=== PATIENT | female | born 1975 | race Caucasian/White ===

== ENCOUNTER 2021-07-15 09:27 | Inpatient (IN) ==
[2021-07-15] MEDS ORDERED: SODIUM CHLORIDE 0.9% 1000ML 1,000 ML IV ONE (09:52)
[2021-07-15] MEDS ORDERED: KETOROLAC TROMETHAMINE 15 MG/ML VIAL IV ONE (09:52)
[2021-07-15] MEDS ORDERED: dexAMETHasone**PF** 10 MG/ML VIAL IV ONE (09:52)
--- NOTE | 2021-07-15 09:54 | Emergency Department Note ---
Impression & Plan Leukopenia, Hypoxic, Pneumonia due to 2019-nCoV ED Provider Note NAME: JUAN JOSE SIMPSON AGE: 46 SEX: F : 1975 ARRIVES VIA: Walk-In INFORMANT: Patient ED PROVIDER(S): Faustino Mathis DO CHIEF COMPLAINT: Cough and shortness of breath HPI: Patient is a 46-year-old female who presents to the ER for symptoms which started this past Saturday. Patient has a cough and congestion. She also admits to some nausea and diffuse abdominal cramping. She went to her PCPs office and pulse ox was 80% and she was referred in. She does admit to some intermittent chest pain with significant deep breathing. Admits to dysuria but no urgency or frequency. She does have some left flank pain. Fevers have been as high as 101-102. No other exacerbating or remitting factors. She does work as a nurse for [employer]. ROS: See above HPI for pertinent positives & negatives. A total of 10 systems reviewed and were otherwise negative. PAST MEDICAL HISTORY:See Below PAST SURGICAL HISTORY:See Below FAMILY HISTORY:See Below SOCIAL HISTORY:See Below HOME MEDICATIONS:See Below ALLERGIES:See Below VITALS:See Below PHYSICAL EXAMINATION: GENERAL: Sitting up in bed, alert, disheveled on nasal cannula EYE EXAM: normal conjunctiva. PERRL and EOM's grossly intact. OROPHARYNX: no exudate, no erythema, lips, buccal mucosa, and tongue normal and mucous membranes are moist NECK: supple, no nuchal rigidity, no adenopathy, non-tender LUNGS: Clear to auscultation. Normal chest wall mechanics HEART: no murmurs, S1 normal and S2 normal ABDOMEN: abdomen soft, non-tender, normo-active bowel sounds, no masses, no rebound or guarding. UPPER EXTREMITIES: upper extremities are grossly normal. LOWER EXTREMITIES: No pitting edema. NEURO EXAM: Normal sensorium, cranial nerves II-XII grossly intact, normal speech, no gross weakness of arms, no gross weakness of legs. MEDICAL DECISION MAKING: Patient is a 46-year-old female who presents the ER for shortness of breath. She was found to be hypoxic and has some abdominal pain and nausea. Pain is a 7 out of 10. IV was established blood work was obtained. Labs show mild leukopenia 3000. No significant anemia. BMP with mild hypokalemia 3.4. LFTs bilirubin troponin and lipase was unremarkable. UA was contaminated. Patient is Covid positive. Chest x-ray shows bilateral infiltrates. Patient is hypoxic at 83% on room air. Patient was placed on nasal cannula and remained on this throughout stay in the ER. Patient was given IV fluids and Decadron. Discussed with Pt concerning signs and symptoms to watch out for. Pt was instructed to follow up with their PCP and discussed with the patient their option to return to the ED at anytime for persistent or worsening symptoms. The appropriate a nticipatory guidance and out-patient management, including indications for return to the emergency department, were explained at length to the patient and understood. Triage Nursing notes reviewed. Limited review of prior medical records performed Vital Signs: reviewed and remarkable for tachy Differential diagnosis: Differential diagnoses includes but is not limited to pneumonia, bronchitis, COPD/Asthma exacerbation, pneumothorax, pulmonary embolism, congestive heart failure, acute coronary syndrome ER treatment provided: See below Diagnostics interpreted by me: ECG: Sinus rhythm rate 99 Normal axis No PVCs QTC 477 Cardiac Monitoring: An order was placed for continuous cardiac monitoring. The monitor shows a rate of 95 with sinus rhythm. Laboratory studies: As stated above and show below. Imaging studies: Portable AP upright 1 view of the chest shows multifocal pneumonia Consultation(s): Discussed with hospitalist for further evaluation Chelsey Parker Procedures: none Critical Care: I have personally spent 35 minutes of critical care time in the direct management of this patient. This includes bedside care, interpretation of diagnostic studies, and testing, discussion with consultants, patient, and family members, and other required patient management activities. This 35 minutes is in excess of all separately billable procedures. Past Med/Surg History Medical History (Updated 07/15/21 @ 16:42 by Faustino Mathis DO) DMII (diabetes mellitus, type 2) Lupus Surgical History (Updated 07/15/21 @ 12:51 by Lily Lopez DO) H/O section History of incisional hernia repair History of tonsillectomy and adenoidectomy S/P appy Family History (Updated 07/15/21 @ 12:50 by Lily Lopez DO) Father Prostate cancer Diabetes Hypertension Mother Stroke Diabetes Hypertension CHF (congestive heart failure) Social History (Updated 07/15/21 @ 12:52 by Lily Lopez DO) Smoking Status: Former smoker Do You Dip or Chew Tobacco: No; Hx Alcohol Use: No Hx Substance Use: No Preferred Language: German Communication Ability: Effective Reel Winder Required: No Beliefs That Will Affect Care: None Current Living Situation: Spouse and Family current occupational status: employed current occupation: nurse Other Information That Helps Us Care for You: No Feels Safe at Home: Yes Safety Concerns: Feels Safe At This Time Assistive Devices: Contacts Allergies Allergies Allergy/AdvReac Type Severity Reaction Status Date / Time tree nut Allergy Severe anaphylaxis Verified 07/15/21 12:49 Home Meds Home Medications Medication Instructions Recorded Confirmed Ibuprofen (Advil) 800 mg PO TID PRN #0 tab 02/16/15 canagliflozin 300 mg tablet 300 mg PO DAILY 07/15/21 07/15/21 (Invokana) celecoxib 200 mg capsule 200 mg PO BID 07/15/21 07/15/21 fluoxetine 20 mg capsule 20 mg PO DAILY 07/15/21 07/15/21 folic acid 1 mg tablet 1 mg PO DAILY 07/15/21 07/15/21 gabapentin 300 mg capsule 300 mg PO HS 07/15/21 07/15/21 hydroxychloroquine 200 mg tablet 200 mg PO Q2D 07/15/21 07/15/21 hydroxychloroquine 200 mg tablet 100 mg PO Q2D 07/15/21 07/15/21 (Plaquenil) linagliptin 5 mg tablet (Tradjenta) 5 mg PO DAILY 07/15/21 07/15/21 methotrexate sodium 25 mg/mL 15 mg PO TH@0907/15/21 07/15/21 injection solution semaglutide (Ozempic) 0.5 mg SUBCUT TU@0907/15/21 07/15/21 trazodone 100 mg tablet 100 mg PO HS 07/15/21 07/15/21 Results & Data (ED) Vital Signs Vital Signs - 24 hr 07/15/21 09:35 07/15/21 09:45 07/15/21 09:46 Temperature 36.6 C Temperature Source Temporal Artery Scan Pulse Rate 105 H Pulse Rate [Finger] Respiratory Rate 18 Respiratory Effort / Characteristics Non-Labored Respiratory Depth Normal Blood Pressure 137/83 Blood Pressure [Left Arm] Blood Pressure Mean 101 Blood Pressure Mean [Left Arm] Pulse Oximetry 88 L 83 L 91 Oxygen Delivery Method Room Air Room Air Nasal Cannula Oxygen Flow Rate 2 Sepsis Recent Fever Within 48 Hours Yes Sepsis New/Unexplained Change in Mental Status No Sepsis Action Taken by Nursing No Action Required 07/15/21 10:22 07/15/21 11:48 Temperature Temperature Source Pulse Rate Pulse Rate [Finger] 100 H Respiratory Rate 18 Respiratory Effort / Characteristics Respiratory Depth Blood Pressure Blood Pressure [Left Arm] 126/63 Blood Pressure Mean Blood Pressure Mean [Left Arm] 84 Pulse Oximetry 94 94 Oxygen Delivery Method Nasal Cannula Nasal Cannula Oxygen Flow Rate 2 2 Sepsis Recent Fever Within 48 Hours Sepsis New/Unexplained Change in Mental Status Sepsis Action Taken by Nursing Laboratory Data Result diagrams: 07/15/21 10:26 07/15/21 10:26 Lab Results 07/15/21 07/15/21 07/15/21 Range/Units 10:26 10:26 10:26 WBC 3.39 L (4.8-10.8) K/uL RBC 4.75 (4.2-5.4) M/uL Hgb 13.6 (12.0-16.0) g/dL Hct 40.5 (37-47) % MCV 85.3 (80-100) fL MCH 28.6 (25-34) pg MCHC 33.6 (32-36) g/dL RDW Std Deviation 45.5 (36.4-46.3) fL RDW Coeff of [place] 14.7 H (11.5-14.5) % Plt Count 181 (130-400) K/uL MPV 9.2 (7.4-10.4) fL Immature Gran % (Auto) 0.3 % Neut % (Auto) 83.8 % Lymph % (Auto) 12.4 % [place] % (Auto) 3.2 % Eos % (Auto) 0.0 % Baso % (Auto) 0.3 % Neut # (Auto) 2.84 (1.4-6.5) K/uL Lymph # (Auto) 0.42 L (1.2-3.4) K/uL [place] # (Auto) 0.11 (0.11-0.59) K/uL Eos # (Auto) 0.00 (0-0.5) K/uL Baso # (Auto) 0.01 (0-0.2) K/uL Immature Gran # (Auto) 0.01 (0.00-0.02) K/uL Sodium 138 (136-145) mmol/L Potassium 3.4 L (3.5-5.1) mmol/L Chloride 104 (98-107) mmol/L Carbon Dioxide 25 (21-32) mmol/L Anion Gap 9.0 (3-11) BUN 14 (7-18) mg/dl Creatinine 0.50 L (0.6-1.2) mg/dl Est Cr Clr Drug Dosing 167.4 ml/min Est GFR ( Amer) 134.5 ml/min Est GFR (Non-Af Amer) 116.1 ml/min BUN/Creatinine Ratio 28.9 H (10-20) Glucose 116 H (70-99) mg/dl Calcium 8.8 (8.5-10.1) mg/dl Total Bilirubin 0.3 (0.2-1) mg/dl AST 26 (15-37) U/L ALT 41 (12-78) U/L Alkaline Phosphatase 63 (45-117) U/L Troponin I < 0.015 (0-0.045) ng/ml C-Reactive Protein (0-0.29) mg/dl Total Protein 7.5 (6.4-8.2) gm/dl Albumin 3.3 L (3.4-5.0) gm/dl Globulin 4.2 H (2.5-4.0) gm/dl Albumin/Globulin Ratio 0.8 L (0.9-2) Lipase 106 (73-393) U/L Urine Color Yellow Urine Appearance Cloudy A (Clear) Urine pH 5.5 (4.5-7.5) Ur Specific [place] > 1.045 H (1.000-1.030) Urine Protein 1+ H (Negative) Urine Glucose (UA) 3+ H (Negative) Urine Ketones 4+ H (Negative) Urine Blood Trace H (Negative) Urine Nitrite Negative (Negative) Urine Bilirubin Negative (Negative) Urine Urobilinogen Negative (Negative) Ur Leukocyte Esterase Negative (Negative) Urine WBC (Auto) >30 H (0-5) /hpf Urine RBC (Auto) 0-4 (0-4) /hpf U Hyaline Cast (Auto) 10-30 H (0-5) /lpf U Epithel Cells (Auto) >30 H (0-5) /lpf Urine Bacteria (Auto) 1+ H (Negative) POC Ur Test (NEG) COVID-19 Eval Order SARS-CoV-2 (PCR) (Negative) 07/15/21 07/15/21 07/15/21 Range/Units 10:26 10:26 10:26 WBC (4.8-10.8) K/uL RBC (4.2-5.4) M/uL Hgb (12.0-16.0) g/dL Hct (37-47) % MCV (80-100) fL MCH (25-34) pg MCHC (32-36) g/dL RDW Std Deviation (36.4-46.3) fL RDW Coeff of [place] (11.5-14.5) % Plt Count (130-400) K/uL MPV (7.4-10.4) fL Immature Gran % (Auto) % Neut % (Auto) % Lymph % (Auto) % [place] % (Auto) % Eos % (Auto) % Baso % (Auto) % Neut # (Auto) (1.4-6.5) K/uL Lymph # (Auto) (1.2-3.4) K/uL [place] # (Auto) (0.11-0.59) K/uL Eos # (Auto) (0-0.5) K/uL Baso # (Auto) (0-0.2) K/uL Immature Gran # (Auto) (0.00-0.02) K/uL Sodium (136-145) mmol/L Potassium (3.5-5.1) mmol/L Chloride (98-107) mmol/L Carbon Dioxide (21-32) mmol/L Anion Gap (3-11) BUN (7-18) mg/dl Creatinine (0.6-1.2) mg/dl Est Cr Clr Drug Dosing ml/min Est GFR ( Amer) ml/min Est GFR (Non-Af Amer) ml/min BUN/Creatinine Ratio (10-20) Glucose (70-99) mg/dl Calcium (8.5-10.1) mg/dl Total Bilirubin (0.2-1) mg/dl AST (15-37) U/L ALT (12-78) U/L Alkaline Phosphatase (45-117) U/L Troponin I (0-0.045) ng/ml C-Reactive Protein (0-0.29) mg/dl Total Protein (6.4-8.2) gm/dl Albumin (3.4-5.0) gm/dl Globulin (2.5-4.0) gm/dl Albumin/Globulin Ratio (0.9-2) Lipase (73-393) U/L Urine Color Urine Appearance (Clear) Urine pH (4.5-7.5) Ur Specific [place] (1.000-1.030) Urine Protein (Negative) Urine Glucose (UA) (Negative) Urine Ketones (Negative) Urine Blood (Negative) Urine Nitrite (Negative) Urine Bilirubin (Negative) Urine Urobilinogen (Negative) Ur Leukocyte Esterase (Negative) Urine WBC (Auto) (0-5) /hpf Urine RBC (Auto) (0-4) /hpf U Hyaline Cast (Auto) (0-5) /lpf U Epithel Cells (Auto) (0-5) /lpf Urine Bacteria (Auto) (Negative) POC Ur Test NEG (NEG) COVID-19 Eval Order Covid19 at [facility] SARS-CoV-2 (PCR) POSITIVE A* (Negative) 07/15/21 Range/Units 10:26 WBC (4.8-10.8) K/uL RBC (4.2-5.4) M/uL Hgb (12.0-16.0) g/dL Hct (37-47) % MCV (80-100) fL MCH (25-34) pg MCHC (32-36) g/dL RDW Std Deviation (36.4-46.3) fL RDW Coeff of [place] (11.5-14.5) % Plt Count (130-400) K/uL MPV (7.4-10.4) fL Immature Gran % (Auto) % Neut % (Auto) % Lymph % (Auto) % [place] % (Auto) % Eos % (Auto) % Baso % (Auto) % Neut # (Auto) (1.4-6.5) K/uL Lymph # (Auto) (1.2-3.4) K/uL [place] # (Auto) (0.11-0.59) K/uL Eos # (Auto) (0-0.5) K/uL Baso # (Auto) (0-0.2) K/uL Immature Gran # (Auto) (0.00-0.02) K/uL Sodium (136-145) mmol/L Potassium (3.5-5.1) mmol/L Chloride (98-107) mmol/L Carbon Dioxide (21-32) mmol/L Anion Gap (3-11) BUN (7-18) mg/dl Creatinine (0.6-1.2) mg/dl Est Cr Clr Drug Dosing ml/min Est GFR ( Amer) ml/min Est GFR (Non-Af Amer) ml/min BUN/Creatinine Ratio (10-20) Glucose (70-99) mg/dl Calcium (8.5-10.1) mg/dl Total Bilirubin (0.2-1) mg/dl AST (15-37) U/L ALT (12-78) U/L Alkaline Phosphatase (45-117) U/L Troponin I (0-0.045) ng/ml C-Reactive Protein 10.70 H (0-0.29) mg/dl Total Protein (6.4-8.2) gm/dl Albumin (3.4-5.0) gm/dl Globulin (2.5-4.0) gm/dl Albumin/Globulin Ratio (0.9-2) Lipase (73-393) U/L Urine Color Urine Appearance (Clear) Urine pH (4.5-7.5) Ur Specific [place] (1.000-1.030) Urine Protein (Negative) Urine Glucose (UA) (Negative) Urine Ketones (Negative) Urine Blood (Negative) Urine Nitrite (Negative) Urine Bilirubin (Negative) Urine Urobilinogen (Negative) Ur Leukocyte Esterase (Negative) Urine WBC (Auto) (0-5) /hpf Urine RBC (Auto) (0-4) /hpf U Hyaline Cast (Auto) (0-5) /lpf U Epithel Cells (Auto) (0-5) /lpf Urine Bacteria (Auto) (Negative) POC Ur Test (NEG) COVID-19 Eval Order SARS-CoV-2 (PCR) (Negative) Administered Medications Ceftriaxone Sodium 2,000 mg/ (Dextrose) 50 mls @ 100 mls/hr IV Q24H [facility]; Protocol Stop: 07/25/21 13:29 Last Infusion: 07/15/21 16:03 Dose: 0 mls/hr Documented by: [id number] Admin: 07/15/21 14:28 Dose: 100 mls/hr Documented by: [id number] Phenazopyridine HCl (Phenazopyridine Hcl 100 Mg Tab) 100 mg PO TID COREY Stop: 07/18/21 13:59 Last Admin: 07/15/21 14:28 Dose: 100 mg Documented by: [id number] Discontinued Medications Dexamethasone Sodium Phosphate (DexamethasonePf 10 Mg/Ml Vial) 6 mg IV NOW ONE Stop: 07/15/21 09:53 Last Admin: 07/15/21 10:27 Dose: 6 mg Documented by: [id number] Sodium Chloride (Nss 1000ml) 1,000 mls @ 999 mls/hr IV .Q1H1M ONE Stop: 07/15/21 10:52 Last Infusion: 07/15/21 11:15 Dose: 0 mls/hr Documented by: [id number] Admin: 07/15/21 10:27 Dose: 999 mls/hr Documented by: [id number] Remdesivir 200 mg/ Sodium (Chloride) 250 mls @ 125 mls/hr IV ONE STA; Protocol Stop: 07/15/21 15:06 Last Admin: 07/15/21 13:51 Dose: 125 mls/hr Documented by: [id number] Ioversol (Optiray 320 125ml) 120 ml IV ONCE ONE Stop: 07/15/21 11:20 Last Admin: 07/15/21 11:19 Dose: 120 ml Documented by: [id number] Ketorolac Tromethamine (Ketorolac Tromethamine 15 Mg/Ml Vial) 10 mg IV NOW ONE Stop: 07/15/21 09:53 Last Admin: 07/15/21 10:27 Dose: 10 mg Documented by: [id number] Imaging Data Radiologist's Impression: Chest X-Ray 07/15/21 09:41 SINGLE VIEW CHEST CLINICAL HISTORY: Dyspnea. FINDINGS: An AP, portable, upright chest radiograph is obtained. No prior studies are available for comparison at the time of dictation. The cardiomediastinal silhouette is unremarkable. Multifocal airspace consolidation is seen throughout both lungs. No large pleural effusion or pneumothorax is identified. The bony thorax is grossly intact. IMPRESSION: Multiple focal airspace consolidation is typical for pneumonia. Clinical correlation will be required and radiographic follow-up to resolution is recommended. ACT 112: Negative or not required by law. Electronically signed by: Ankit Woodall M.D. 07/15/2021 10:32 AM Discharge Plan Visit Data Chief Complaint: Illness Stated Complaint: LOW O2/SOB/FEVER/CHILLS/SWEATS ED Provider: Faustino Mathis Discharge Problem: Leukopenia, Hypoxic, Pneumonia due to 2019-nCoV Patient Disposition: Admitted As Inpatient Discharge Instructions Interventions: ED Discharge Assessment Last Done: 07/15/21 14:46 Discharge Problem: Leukopenia Qualifiers: Leukopenia type: unspecified Qualified Code(s): D72.819 - Decreased white blood cell count, unspecified
--- NOTE | 2021-07-15 10:33 | XRay Report ---
SINGLE VIEW CHEST CLINICAL HISTORY: Dyspnea. FINDINGS: An AP, portable, upright chest radiograph is obtained. No prior studies are available for c omparison at the time of dictation. The cardiomediastinal silhouette is unremarkable. Multifocal air space consolidation is seen throughout both lungs. No large pleural effusion or pneumothorax is ident ified. The bony thorax is grossly intact. IMPRESSION: Multiple focal airspace consolidation is typical for pneumonia. Clinical correlation will be required and radiographic follow-up to resolution is recommended. ACT 112: Negative or not required by law. Electronically signed by: Ankit Woodall M.D. 07/15/2021 10:32 AM
[2021-07-15 10:46] LABS: Basophils # (auto) 0.01 K/uL (0-0.2); Basophils % (auto) 0.3 %; Hematocrit (blood only) 40.5 % (37-47); Hemoglobin 13.6 g/dL (12.0-16.0); Immature Granulocytes # (auto) 0.01 K/uL (0.00-0.02); Immature Granulocytes % (auto) 0.3 %; Lymphocytes # (auto) 0.42 K/uL (1.2-3.4); Lymphocytes % (auto) 12.4 %; Mean Corpuscular Hemoglobin 28.6 pg (25-34); Mean Corpuscular Hgb Conc 33.6 g/dL (32-36); Mean Corpuscular Volume 85.3 fL (80-100); Mean Platelet Volume 9.2 fL (7.4-10.4); Monocytes # (auto) 0.11 K/uL (0.11-0.59); Monocytes % (auto) 3.2 %; Neutrophils # (auto) 2.84 K/uL (1.4-6.5); Neutrophils % (auto) 83.8 %; Platelet Count 181 K/uL (130-400); RDW Coefficient of Variation 14.7 % (11.5-14.5); RDW Standard Deviation 45.5 fL (36.4-46.3); Red Blood Count 4.75 M/uL (4.2-5.4); White Blood Count 3.39 K/uL (4.8-10.8)
[2021-07-15 10:53] LABS: Appearance Urine Cloudy (Clear); Bacteria Urine Automated 1+ (Negative); Bilirubin Urine Negative (Negative); Blood Urine Trace (Negative); Color Urine Yellow; Epithelial Cell Urine Auto >30 /lpf (0-5); Glucose Urine UA 3+ (Negative); Ketones Urine 4+ (Negative); Leukocyte Esterase Urine Negative (Negative); Nitrite Urine Negative (Negative); Protein Urine 1+ (Negative); RBC Urine Automated 0-4 /hpf (0-4); Specific Gravity Urine > 1.045 (1.000-1.030); Urobilinogen Urine Negative (Negative); WBC Urine Automated >30 /hpf (0-5); pH Urine 5.5 (4.5-7.5)
[2021-07-15 11:12] LABS: Alanine Aminotransferase 41 U/L (12-78); Albumin Level 3.3 gm/dl (3.4-5.0); Aspartate Aminotransferase 26 U/L (15-37); BUN Creatinine Ratio 28.9 (10-20); Blood Urea Nitrogen 14 mg/dl (7-18); Calcium 8.8 mg/dl (8.5-10.1); Carbon Dioxide 25 mmol/L (21-32); Chloride 104 mmol/L (98-107); Creatinine Clr Calc Pharmacy 167.4 ml/min; Est GFR (African American) 134.5 ml/min; Est GFR (Non-African American) 116.1 ml/min; Glucose 116 mg/dl (70-99); Lipase 106 U/L (73-393); Potassium 3.4 mmol/L (3.5-5.1); Sodium 138 mmol/L (136-145)
[2021-07-15] MEDS ORDERED: OPTIRAY 320 125ml IV ONE (11:19)
--- NOTE | 2021-07-15 11:55 | History & Physical Report ---
Date of Service July 15, 2021 Assessment & Plan (1) Sepsis: Plan: Possibly developing sepsis in setting of covid pneumonia and acute pyelonephritis with ?lupus flare in this immunosuppressed patient recently placed on a steroid taper (and on MTX). She is doing well despite this and reports feeling somewhat better. She had 1L IVF. Will give 1 additional liter now and will trend lactate. Although covid may be contributing to sepsis picture, also has possible bacterial infection in urine. Will obtain blood cultures and start empiric antibiotic treatment with ceftriaxone. Will go ahead and concurrently treat with antibiotics and steroids for now and monitor clinical progress, however, if her bladder infection worsens, may need to hold on the steroids. Cont treatment for covid below. (2) Immunosuppressed status: (3) Pneumonia due to COVID-19 virus: Plan: Dexamethasone given in ER, cont with daily dexamethasone. Add remdesivir with load today. Monitor renal function and LFTs. Patient was briefed on the possible infusion side effects of remdesivir and agrees with the therapy. Cont oxygen supplementation as needed. (4) Acute pyelonephritis: Plan: Ceftriaxone empirically pending urine culture report. Obtain blood cultures in septic, immunosuppressed patient. (5) Lupus: Plan: Takes MTX, recently took on two days ago and has been on a prednisone taper since Mon beginning at 15mg daily. Malar rash and joint pain is present. Hold MTX and cont steroid therapy as above. (6) DMII (diabetes mellitus, type 2): Plan: Hold home medications, repeat A1C which was slightly uncontrolled in March 2021 at 7.6. Cont with glargine and novolog with intensification while on steroid therapy. (7) Obesity: Plan: Lifestyle recommendations. (8) Insomnia: Plan: Cont trazodone per home regimen. (9) DVT prophylaxis: Plan: Lovenox Full Dispo-to med tele, to home when medically stable and off oxygen. Lily Lopez DO [facility] Hospitalist History of Present Illness Primary Care Provider: Shimon Ball MD 46 yo nonsmoker immunosuppressed patient with lupus presents with covid pneumonia. Symptoms began on Tu including fatigue, fever, diarrhea, headache, joint pain, nausea, and symptoms of UTI including dysurina, nocturia, flank pain, cough and sob. Cough was described as not productive. Diarrhea has been improved. Not on home oxygen. Thought she was having a lupus flare and started a prednisone taper per rheumatology on Saturday (started having joint pain, ORTIZ, fatigue and felt the flare was coming on). Symptoms progressed to include fever on Saturday morning. She did take her MTX dose on and noted a worsening of symptoms. She notes needing to sleep in a recliner. Diarrhea has started to improve. She has been taking Ibuprofen 800mg TID this week consistently related to pain and fevers. She denies having lost her sense of taste of smell, however, she has not eaten much secondary to low appetite. Allergies Allergy/AdvReac Type Severity Reaction Status Date / Time tree nut Allergy Severe anaphylaxis Verified 07/15/21 12:49 Home Medications Medication Instructions Recorded Confirmed Type Ibuprofen (Advil) 800 mg PO TID PRN #0 tab 02/16/15 History canagliflozin 300 mg tablet 300 mg PO DAILY 07/15/21 07/15/21 History (Invokana) celecoxib 200 mg capsule 200 mg PO BID 07/15/21 07/15/21 History fluoxetine 20 mg capsule 20 mg PO DAILY 07/15/21 07/15/21 History folic acid 1 mg tablet 1 mg PO DAILY 07/15/21 07/15/21 History gabapentin 300 mg capsule 300 mg PO HS 07/15/21 07/15/21 History hydroxychloroquine 200 mg tablet 200 mg PO Q2D 07/15/21 07/15/21 History hydroxychloroquine 200 mg tablet 100 mg PO Q2D 07/15/21 07/15/21 History (Plaquenil) linagliptin 5 mg tablet (Tradjenta) 5 mg PO DAILY 07/15/21 07/15/21 History methotrexate sodium 25 mg/mL 15 mg PO TH@0900 07/15/21 07/15/21 History injection solution semaglutide (Ozempic) 0.5 mg SUBCUT TU@89907/15/21 07/15/21 History trazodone 100 mg tablet 100 mg PO HS 07/15/21 07/15/21 History Past Med/Surg History Medical History (Updated 07/15/21 @ 13:14 by Lily Lopez DO) DMII (diabetes mellitus, type 2) Lupus Surgical History (Updated 07/15/21 @ 12:51 by Lily Lopez DO) H/O section History of incisional hernia repair History of tonsillectomy and adenoidectomy S/P appy Family History (Updated 07/15/21 @ 12:50 by Lily Lopez DO) Father Prostate cancer Diabetes Hypertension Mother Stroke Diabetes Hypertension CHF (congestive heart failure) Social History (Updated 07/15/21 @ 12:52 by Lily Lopez DO) Smoking Status: Never smoker Hx Alcohol Use: No Hx Substance Use: No current occupational status: employed current occupation: nurse Feels Safe at Home: Yes Safety Concerns: Feels Safe At This Time Review of Systems Review of Systems: At least ten systems were reviewed and negative except as indicated in HPI above. Physical Exam Physical Exam: CONSTITUTIONAL: obese, vitals as above, generally well- appearing EYES: EOMI bilaterally, PERRL, normal conjunctivae, no scleral icterus, ENT: external ear and nose normal, oropharynx clear, flushing on cheeks bilaterally and in central submandibular space and along her chest slightly NECK: trachea midline RESPIRATORY: diffuse crackles with poor airflow throughout, no wheezing or rales. Normal respiratory effort CARDIOVASCULAR: regular rate and rhythm, S1 and 2 heard without murmurs, gallops or rubs, no JVD, no peripheral edema CHEST: inspection of chest was normal aside from erythema as above. GASTROINTESTINAL: soft, diffuse tenderness with left CVA tenderness, nondistended, suprapubic tenderness. MUSCULOSKELETAL: strength 5/5 throughout, head is normocephalic and atraumatic SKIN: warm and dry, malar rash and rash on chin and chest NEUROLOGIC: No facial palsy, no dysarthria. Touch, pain and proprioception normal. CN 2-12 grossly intact, no sensory deficit, normal cognition, normal speech, no tremor PSYCHIATRIC: alert cooperative and oriented to person, place and time. Euthymic mood, makes good eye contact, language grossly intact, recent and remote memory grossly intact. Results & Data Results & Data ([facility]) Vital Signs (Past 12 Hours) Vital Signs Temp Pulse Pulse Resp BP BP Pulse Ox 07/15/21 11:48 100 H 18 126/63 94 07/15/21 10:22 94 07/15/21 09:46 91 07/15/21 09:45 83 L 07/15/21 09:35 36.6 C 105 H 18 137/83 88 L Laboratory Results Short CBC 07/15/21 Range/Units 10:26 WBC 3.39 L (4.8-10.8) K/uL Hgb 13.6 (12.0-16.0) g/dL Hct 40.5 (37-47) % Plt Count 181 (130-400) K/uL BMP 07/15/21 10:26 Sodium 138 Potassium 3.4 L Chloride 104 Carbon Dioxide 25 BUN 14 Creatinine 0.50 L Glucose 116 H Calcium 8.8 Liver Function 07/15/21 Range/Units 10:26 AST 26 (15-37) U/L ALT 41 (12-78) U/L Albumin 3.3 L (3.4-5.0) gm/dl Urine 07/15/21 Range/Units 10:26 Urine Color Yellow Urine Appearance Cloudy A (Clear) Urine pH 5.5 (4.5-7.5) Ur Specific [place] > 1.045 H (1.000-1.030) Urine Protein 1+ H (Negative) Urine Glucose (UA) 3+ H (Negative) Diagnostic Findings SINGLE VIEW CHEST CLINICAL HISTORY: Dyspnea. FINDINGS: An AP, portable, upright chest radiograph is obtained. No prior studies are available for comparison at the time of dictation. The cardiomediastinal silhouette is unremarkable. Multifocal airspace consolidation is seen throughout both lungs. No large pleural effusion or pneumothorax is identified. The bony thorax is grossly intact. IMPRESSION: Multiple focal airspace consolidation is typical for pneumonia. Clinical correlation will be required and radiographic follow-up to resolution is recommended. Code Status & VTE Plan VTE Prophylaxis Plan VTE Prophylaxis will be ordered: Yes
[2021-07-15 12:35] LABS: Albumin Globulin Ratio 0.8 (0.9-2); Alkaline Phosphatase 63 U/L (45-117); Bilirubin,Total 0.3 mg/dl (0.2-1); Globulin 4.2 gm/dl (2.5-4.0); Total Protein 7.5 gm/dl (6.4-8.2)
[2021-07-15 12:38] LABS: Troponin I < 0.015 ng/ml (0-0.045)
[2021-07-15] MEDS ORDERED: REMDESIVIR 200 MG in SODIUM CHLORIDE 0.9% 210 ML IV STA (13:07)
[2021-07-15] MEDS: cefTRIAXone SODIUM 2,000 MG in DEXTROSE 5% 50 ML IV SCH (14:28)
[2021-07-15] MEDS: PHENAZOPYRIDINE HCL 100 MG TAB PO SCH ×2 (14:28→21:20)
[2021-07-15] MEDS ORDERED: ONDANSETRON INJ 2 MG/ML 2 ML VIAL IV PRN (15:26)
[2021-07-15] MEDS ORDERED: GLUCOSE 40% GEL 15 GM TUBE PO PRN (15:26)
[2021-07-15] MEDS ORDERED: GLUCAGON FOR INJ 1 MG VIAL SQ PRN (15:26)
[2021-07-15] MEDS ORDERED: DEXTROSE 50% 50 ML SYRINGE IV PRN (15:26)
[2021-07-15] MEDS ORDERED: GLUCOSE 10 TABS/TUBE PO PRN (15:26)
[2021-07-15] MEDS ORDERED: CARBOHYDRATES FOR HYPOGLYCEMIA PO PRN (15:26)
[2021-07-15] MEDS: ZINC SULFATE 220 MG CAPSULE PO SCH (17:18)
[2021-07-15] MEDS: CHOLECALCIFEROL 1,000 UNITS 25 MCG TAB PO SCH (17:18)
[2021-07-15] MEDS: ENOXAPARIN INJ 40 MG/0.4 ML SYR SQ SCH (17:19)
[2021-07-15] MEDS ORDERED: PNEUMOCOCCAL POLYSACCHARIDES 25 MCG/0.5 ML VIAL/SYR IM ONE (18:00)
[2021-07-15] MEDS: INSULIN ASPART 100 UNITS/ML 3 ML PEN SC SCH ×2 (18:03→21:47)
[2021-07-15] MEDS: GABAPENTIN 300 MG CAP PO SCH (20:36)
[2021-07-15] MEDS: ASCORBIC ACID 500 MG TAB PO SCH (20:36)
[2021-07-15] MEDS: traZODone HCL 100 MG TAB PO SCH (20:36)
[2021-07-15] MEDS: CeleBREX 200 MG CAP PO SCH (20:37)
[2021-07-15] MEDS ORDERED: INSULIN GLARGINE SOLOSTAR 100 UNITS/ML 3 ML PEN SC SCH (21:00)
[2021-07-16] MEDS: ENOXAPARIN INJ 40 MG/0.4 ML SYR SQ SCH ×2 (05:45→17:48)
[2021-07-16 06:54] LABS: Hematocrit (blood only) 39.5 % (37-47); Mean Corpuscular Hemoglobin 28.5 pg (25-34); Mean Corpuscular Hgb Conc 32.9 g/dL (32-36); Mean Corpuscular Volume 86.6 fL (80-100); Mean Platelet Volume 9.3 fL (7.4-10.4); Platelet Count 224 K/uL (130-400); RDW Coefficient of Variation 14.9 % (11.5-14.5); RDW Standard Deviation 47.3 fL (36.4-46.3); Red Blood Count 4.56 M/uL (4.2-5.4)
[2021-07-16 07:26] LABS: BUN Creatinine Ratio 53.3 (10-20); Blood Urea Nitrogen 16 mg/dl (7-18); Calcium 8.7 mg/dl (8.5-10.1); Carbon Dioxide 24 mmol/L (21-32); Chloride 107 mmol/L (98-107); Creatinine Clr Calc Pharmacy 271.5 ml/min; Est GFR (African American) > 150.0 ml/min; Est GFR (Non-African American) 135.8 ml/min; Glucose 66 mg/dl (70-99); Phosphorus 2.8 mg/dl (2.5-4.9); Potassium 3.6 mmol/L (3.5-5.1); Sodium 139 mmol/L (136-145)
--- NOTE | 2021-07-16 07:52 | Electrocardiogram Report ---
Test Reason : Blood Pressure : / mmHG Vent. Rate : 099 BPM Atrial Rate : 099 BPM P-R Int : 152 ms QRS Dur : 080 ms QT Int : 372 ms P-R-T Axes : 022 028 023 degrees QTc Int : 477 ms Poor data quality, interpretation may be adversely affected Normal sinus rhythm Normal ECG When compared with ECG of 17-AUG-2014 10:05, No significant change was found Confirmed by Denzel Pascual ([id number]) on 07/16/2021 7:52:27 AM Referred By: REFERRED SELF Confirmed By:Denzel Pascual
[2021-07-16] MEDS: ZINC SULFATE 220 MG CAPSULE PO SCH (09:05)
[2021-07-16] MEDS: PHENAZOPYRIDINE HCL 100 MG TAB PO SCH ×3 (09:05→21:02)
[2021-07-16] MEDS: FLUoxetine HCL 20 MG CAP PO SCH (09:05)
[2021-07-16] MEDS: CHOLECALCIFEROL 1,000 UNITS 25 MCG TAB PO SCH (09:06)
[2021-07-16] MEDS: ASCORBIC ACID 500 MG TAB PO SCH ×2 (09:06→21:01)
[2021-07-16] MEDS: CeleBREX 200 MG CAP PO SCH ×2 (09:06→19:23)
[2021-07-16] MEDS: FOLIC ACID 1 MG TAB PO SCH (09:07)
[2021-07-16] MEDS: INSULIN ASPART 100 UNITS/ML 3 ML PEN SC SCH ×4 (09:15→21:24)
[2021-07-16] MEDS: REMDESIVIR 100 MG in SODIUM CHLORIDE 0.9% 230 ML IV SCH (12:05)
[2021-07-16] MEDS: SODIUM CHLORIDE 0.9% 10ML FLUSH IV SCH (13:05)
[2021-07-16] MEDS: cefTRIAXone SODIUM 2,000 MG in DEXTROSE 5% 50 ML IV SCH (14:59)
--- NOTE | 2021-07-16 15:41 | Hospitalist Progress Note ---
Date of Service July 16, 2021 Assessment & Plan (1) Acute respiratory failure due to COVID-19: Plan: Worsening hypoxia--added hi flow support at this time and gave Lasix. Cont to prone as often as able, which she is doing. Continuous pulse ox monitoring. (2) Sepsis: Plan: Improved-not septic at this time after initiating treatment. Cont treatment for covid pneumonia and clinical pyelonephritis in this immunosuppressed patient. (3) Immunosuppressed status: (4) Pneumonia due to COVID-19 virus: Plan: Cont with daily dexamethasone and remdesivir. Monitor renal function and LFTs. Cont oxygen supplementation as needed. (5) Acute pyelonephritis: Plan: Ceftriaxone started empirically given septic appearance on arrival, leukopenia, flank pain an dysuria, fevers. Currently urine and blood cultures are negative. She is somewhat improved clinically, reporting a resolution of flank pain and dysuria. However, she still has leukopenia and appears ill. Cont IV abx for now and plan for a short course of antibiotics to treat a presumed pyelonephritis. (6) Lupus: Plan: Takes MTX, recently took on two days ago and has been on a prednisone taper since Mon beginning at 15mg daily. Malar rash and joint pain is present. Hold MTX and cont steroid therapy as above. (7) DMII (diabetes mellitus, type 2): Plan: Hold home medications, repeat A1C which was slightly uncontrolled in March 2021 at 7.6. Cont with glargine and novolog with intensification while on steroid therapy. Some hypoglycemia noted on current regimen which was loosened, glargine reduced. Patient is eating. (8) Obesity: Plan: Lifestyle recommendations. (9) Insomnia: Plan: Cont trazodone per home regimen. (10) DVT prophylaxis: Plan: Lovenox Full Dispo-now on hi flow oxygen. Lily Lopez DO [facility] Hospitalist Admission and Anticipated Discharge Date Admission Date: July 15, 2021 Subjective 46 yo F admitted with covid pneumonia. She is a lupus patient on plaquenil and methotrexate therapy who is not vaccinated. Today she was increasingly hypoxic Hypoxia was improved by proning However, on my exam her oxygen saturation was dropping as low as 83% with conversation. She was placed on hi flow She reports some increased coughing that is not productive and has no other clear symptoms Feels overall fatigued and worn out by the illness tolerating PO Dysuria and flank pain have resolved overnight Review of Systems Review of Systems: All systems were reviewed and negative except as indicated in HPI above. Physical Exam Physical Exam: CONSTITUTIONAL: obese, vitals as above, generally well- appearing EYES: normal conjunctivae, no scleral icterus, ENT: external ear and nose normal, oropharynx clear NECK: trachea midline RESPIRATORY: improved airflow throughout, min intermittent crackles, no whee zing or rales. Normal respiratory effort CARDIOVASCULAR: regular rate and rhythm, S1 and 2 heard without murmurs, gallops or rubs, no JVD, no peripheral edema CHEST: inspection of chest was normal aside from erythema as above. GASTROINTESTINAL: soft, diffuse tenderness with left CVA tenderness, nondistended, suprapubic tenderness. MUSCULOSKELETAL: strength 5/5 throughout, head is normocephalic and atraumatic SKIN: warm and dry, skin somewhat red on face and chest, however, she was just in prone position. NEUROLOGIC: No facial palsy, no dysarthria. Touch, pain and proprioception normal. CN 2-12 grossly intact, no sensory deficit, normal cognition, normal speech, no tremor PSYCHIATRIC: alert cooperative and oriented to person, place and time. Euthymic mood, makes good eye contact, language grossly intact, recent and remote memory grossly intact. Results & Data Results & Data ([facility]) Vital Signs (Past 12 Hours) Vital Signs Temp Pulse Pulse Resp BP Pulse Ox 07/16/21 15:03 36.9 C 86 18 120/70 93 07/16/21 11:15 37.4 C 93 H 19 127/68 89 L 07/16/21 07:10 36.8 C 86 19 106/71 92 07/16/21 07:00 81 07/16/21 04:04 37.2 C 72 18 139/81 97 Laboratory Results Short CBC 07/16/21 Range/Units 06:11 WBC 3.20 L (4.8-10.8) K/uL Hgb 13.0 (12.0-16.0) g/dL Hct 39.5 (37-47) % Plt Count 224 (130-400) K/uL BMP 07/16/21 06:11 Sodium 139 Potassium 3.6 Chloride 107 Carbon Dioxide 24 BUN 16 Creatinine 0.31 L Glucose 66 L Calcium 8.7 Medications Administered Current Inpatient Medications Acetaminophen (Acetaminophen 325 Mg Tab) 650 mg PO Q4H PRN PRN Reason: Pain or Fever Stop: 08/14/21 15:25 Ascorbic Acid (Ascorbic Acid 500 Mg Tab) 500 mg PO BID [facility] Stop: 08/14/21 20:59 Last Admin: 07/16/21 09:06 Dose: 500 mg Documented by: Celecoxib (Celebrex 200 Mg Cap) 200 mg PO BID [facility] Stop: 08/14/21 20:59 Last Admin: 07/16/21 09:06 Dose: 200 mg Documented by: Dextrose (Dextrose 50% 50 Ml Syringe) 25 - 50 ml IV UD PRN; Protocol PRN Reason: Hypoglycemia Protocol Stop: 08/14/21 15:25 Enoxaparin Sodium (Enoxaparin Inj 40 Mg/0.4 Ml Syr) 40 mg SQ Q12H [facility] Stop: 08/14/21 17:59 Last Admin: 07/16/21 05:45 Dose: 40 mg Documented by: Fluoxetine HCl (Fluoxetine Hcl 20 Mg Cap) 20 mg PO DAILY [facility] Stop: 08/15/21 08:59 Last Admin: 07/16/21 09:05 Dose: 20 mg Documented by: Folic Acid (Folic Acid 1 Mg Tab) 1 mg PO DAILY [facility] Stop: 08/15/21 08:59 Last Admin: 07/16/21 09:07 Dose: 1 mg Documented by: Gabapentin (Gabapentin 300 Mg Cap) 300 mg PO HS [facility] Stop: 08/14/21 20:59 Last Admin: 07/15/21 20:36 Dose: 300 mg Documented by: Glucagon (Glucagon For Inj 1 Mg Vial) 1 mg SQ UD PRN; Protocol PRN Reason: Hypoglycemia Protocol Stop: 08/14/21 15:25 Glucose (Glucose 10 Tabs/Tube) 4 - 8 tabs PO UD PRN; Protocol PRN Reason: Hypoglycemia Protocol Stop: 08/14/21 15:25 Glucose (Glucose 40% Gel 15 Gm Tube) 15 - 30 gm PO UD PRN; Protocol PRN Reason: Hypoglycemia Protocol Stop: 08/14/21 15:25 Ceftriaxone Sodium 2,000 mg/ (Dextrose) 50 mls @ 100 mls/hr IV Q24H [facility]; Protocol Stop: 07/25/21 13:29 Last Admin: 07/16/21 14:59 Dose: 100 mls/hr Documented by: Remdesivir 100 mg/ Sodium (Chloride) 250 mls @ 250 mls/hr IV Q24H [facility]; Protocol Stop: 07/19/21 12:59 Last Infusion: 07/16/21 13:05 Dose: Infused Documented by: Insulin Aspart (Insulin Aspart 100 Units/Ml 3 Ml Pen) 0 units SC ACHS [facility] Stop: 08/14/21 16:29 Last Admin: 07/16/21 12:18 Dose: 3 units Documented by: Insulin Glargine (Insulin Glargine Solostar 100 Units/Ml 3 Ml Pen) 15 units SC BID [facility] Stop: 08/14/21 20:59 Last Admin: 07/15/21 21:48 Dose: 15 units Documented by: Miscellaneous (Carbohydrates For Hypoglycemia ) 15 - 30 gm PO UD PRN PRN Reason: Hypoglycemia Protocol Stop: 08/14/21 15:25 Ondansetron HCl (Ondansetron Inj 2 Mg/Ml 2 Ml Vial) 4 mg IV Q6H PRN PRN Reason: Nausea Stop: 08/14/21 15:25 Phenazopyridine HCl (Phenazopyridine Hcl 100 Mg Tab) 100 mg PO TID [facility] Stop: 07/18/21 13:59 Last Admin: 07/16/21 15:00 Dose: 100 mg Documented by: Sodium Chloride (Sodium Chloride 0.9% 10ml Flush) 30 ml IV Q24H [facility] Stop: 07/20/21 13:01 Last Admin: 07/16/21 13:05 Dose: 30 ml Documented by: Trazodone HCl (Trazodone Hcl 100 Mg Tab) 100 mg PO HS [facility] Stop: 08/14/21 20:59 Last Admin: 07/15/21 20:36 Dose: 100 mg Documented by: Vitamin D (Cholecalciferol 1,000 Units 25 Mcg Tab) 1,000 units PO QAM [facility] Stop: 08/14/21 15:25 Last Admin: 07/16/21 09:06 Dose: 1,000 units Documented by: Zinc Sulfate (Zinc Sulfate 220 Mg Capsule) 220 mg PO QAM [facility] Stop: 08/14/21 15:25 Last Admin: 07/16/21 09:05 Dose: 220 mg Documented by:
[2021-07-16] MEDS ORDERED: FUROSEMIDE 20 MG in SYRINGE 0 ML IV ONE (16:11)
[2021-07-16] MEDS ORDERED: FUROSEMIDE 40 MG/4 ML VIAL IV ONE (16:30)
[2021-07-16] MEDS ORDERED: POTASSIUM CHLORIDE CRTAB 20 MEQ TABCR PO STA (17:06)
[2021-07-16] MEDS: ACETAMINOPHEN 325 MG TAB PO PRN (17:55)
[2021-07-16] MEDS: traZODone HCL 100 MG TAB PO SCH (21:01)
[2021-07-16] MEDS: GABAPENTIN 300 MG CAP PO SCH (21:02)
[2021-07-17] MEDS: ENOXAPARIN INJ 40 MG/0.4 ML SYR SQ SCH ×2 (05:11→17:49)
[2021-07-17] MEDS: ACETAMINOPHEN 325 MG TAB PO PRN (06:28)
[2021-07-17 07:57] LABS: Hematocrit (blood only) 37.8 % (37-47); Hemoglobin 12.6 g/dL (12.0-16.0); Mean Corpuscular Hemoglobin 28.8 pg (25-34); Mean Corpuscular Hgb Conc 33.3 g/dL (32-36); Mean Corpuscular Volume 86.3 fL (80-100); Mean Platelet Volume 8.9 fL (7.4-10.4); Platelet Count 181 K/uL (130-400); RDW Coefficient of Variation 14.8 % (11.5-14.5); RDW Standard Deviation 47.1 fL (36.4-46.3); Red Blood Count 4.38 M/uL (4.2-5.4); White Blood Count 2.76 K/uL (4.8-10.8)
[2021-07-17 08:24] LABS: Alanine Aminotransferase 31 U/L (12-78); Aspartate Aminotransferase 24 U/L (15-37); Blood Urea Nitrogen 17 mg/dl (7-18); Calcium 8.4 mg/dl (8.5-10.1); Carbon Dioxide 24 mmol/L (21-32); Chloride 105 mmol/L (98-107); Creatinine Clr Calc Pharmacy 310.7 ml/min; Est GFR (African American) > 150.0 ml/min; Est GFR (Non-African American) 142.2 ml/min; Glucose 95 mg/dl (70-99); Potassium 3.1 mmol/L (3.5-5.1); Sodium 138 mmol/L (136-145)
--- NOTE | 2021-07-17 08:57 | XRay Report ---
SINGLE VIEW CHEST CLINICAL HISTORY: Covid pneumonia. FINDINGS: An AP, portable, upright chest radiograph is obtained. No prior studies are available for c omparison at the time of dictation. The cardiomediastinal silhouette is unremarkable. Multifocal air space consolidation is again seen throughout both lungs. No large pleural effusion or pneumothorax is identified. The bony thorax is grossly intact. IMPRESSION: Multiple focal airspace consolidation is has modestly worsened as compared 07/15/2021. ACT 112: Negative or not required by law. Electronically signed by: Ankit Woodall M.D. 07/17/2021 8:56 AM
[2021-07-17] MEDS ORDERED: FUROSEMIDE 20 MG in SYRINGE 0 ML IV SCH (09:00)
[2021-07-17] MEDS: dexAMETHasone 6 MG in SYRINGE 0 ML IV SCH (09:10)
[2021-07-17] MEDS: PHENAZOPYRIDINE HCL 100 MG TAB PO SCH (09:10)
[2021-07-17] MEDS: ASCORBIC ACID 500 MG TAB PO SCH ×2 (09:10→20:40)
[2021-07-17] MEDS: ZINC SULFATE 220 MG CAPSULE PO SCH (09:11)
[2021-07-17] MEDS: CeleBREX 200 MG CAP PO SCH ×2 (09:11→20:40)
[2021-07-17] MEDS: FLUoxetine HCL 20 MG CAP PO SCH (09:11)
[2021-07-17] MEDS: FOLIC ACID 1 MG TAB PO SCH (09:11)
[2021-07-17] MEDS: CHOLECALCIFEROL 1,000 UNITS 25 MCG TAB PO SCH (09:11)
[2021-07-17] MEDS: INSULIN ASPART 100 UNITS/ML 3 ML PEN SC SCH ×4 (09:12→21:11)
[2021-07-17] MEDS: POTASSIUM CHLORIDE CRTAB 20 MEQ TABCR PO SCH ×2 (12:25→17:55)
[2021-07-17] MEDS: REMDESIVIR 100 MG in SODIUM CHLORIDE 0.9% 230 ML IV SCH (12:26)
--- NOTE | 2021-07-17 13:13 | Hospitalist Progress Note ---
Date of Service July 17, 2021 Assessment & Plan (1) Acute respiratory failure due to COVID-19: Plan: Doing well on hi flow oxygen/vapotherm for support. Diuresed 1.6L out overnight with Lasix given last evening, CXR appears to be improved. Held on any further Lasix at this time. Cont to prone as often as able, which she is doing. Continuous pulse ox monitoring. (2) Sepsis: Plan: resuscitated, Cont treatment for covid pneumonia and clinical pyelonephritis in this immunosuppressed patient. (3) Immunosuppressed status: (4) Pneumonia due to COVID-19 virus: Plan: Cont with daily dexamethasone and remdesivir. Monitor renal function and LFTs. Cont oxygen supplementation as needed. (5) Acute pyelonephritis: Plan: Ceftriaxone started empirically given septic appearance on arrival, leukopenia, flank pain an dysuria, fevers. Currently urine and blood cultures are negative. She is somewhat improved clinically, reporting a resolution of flank pain and dysuria. However, she still has leukopenia and appears ill. Cont IV abx for now and plan for a short course of antibiotics to treat a presumed pyelonephritis. (6) Lupus: Plan: Takes MTX, recently took on two days ago and has been on a prednisone taper since Mon beginning at 15mg daily. Malar rash and joint pain is present-and this is improved today, joint pain reportedly resolved. Hold MTX, plaquenil and cont steroid therapy as above. (7) DMII (diabetes mellitus, type 2): Plan: Hold home medications, repeat A1C which was slightly uncontrolled in March 2021 at 7.6. Cont with glargine and novolog with intensification while on steroid therapy. Some hypoglycemia noted on current regimen which was loosened, glargine reduced. Patient is eating. (8) Obesity: Plan: Lifestyle recommendations. (9) Insomnia: Plan: Cont trazodone per home regimen. Cut dose by 50% with ongoing hypoxia. (10) DVT prophylaxis: Plan: Lovenox Full Dispo-transfer to PCU status. Cont current therapy. To home when medically stable. Lily Lopez DO [facility] Hospitalist Admission and Anticipated Discharge Date Admission Date: July 15, 2021 Subjective 46 yo F admitted with covid pneumonia. She is a lupus patient on plaquenil and methotrexate therapy who is not vaccinated. Remains hypoxic and doing well on hi flow overnight Some delayed recovery when transferred from bed to chair today per her report. she is proning-didn't sleep well because of the mattress overnight. denies dysuria, flank pain still tired but doing well overall Review of Systems Review of Systems: All systems were reviewed and negative except as indicated in HPI above. Physical Exam Physical Exam: CONSTITUTIONAL: obese, vitals as above, generally well- appearing EYES: normal conjunctivae, no scleral icterus, ENT: external ear and nose normal, oropharynx clear NECK: trachea midline RESPIRATORY: clear to auscultation throughout, no wheezing or rales. Normal respiratory effort CARDIOVASCULAR: regular rate and rhythm, S1 and 2 heard without murmurs, gallops or rubs, no JVD, no peripheral edema GASTROINTESTINAL: soft, diffuse tenderness with left CVA tenderness, nondistended, suprapubic tenderness. MUSCULOSKELETAL: strength 5/5 throughout, head is normocephalic and atraumatic SKIN: warm and dry, still has malar rash, slightly improved from admission. NEUROLOGIC: No facial palsy, no dysarthria. Touch, pain and proprioception normal. CN 2-12 grossly intact, no sensory deficit, normal cognition, normal speech, no tremor PSYCHIATRIC: alert cooperative and oriented to person, place and time. Results & Data Results & Data ([facility]) Vital Signs (Past 12 Hours) Vital Signs Temp Pulse Pulse Resp BP Pulse Ox 07/17/21 11:17 37.1 C 90 22 116/67 89 L 07/17/21 11:07 92 H 22 87 L 07/17/21 07:25 83 22 90 07/17/21 07:22 37.2 C 84 26 H 94/54 L 90 07/17/21 07:00 92 H 07/17/21 03:43 87 22 90 07/17/21 03:16 37.0 C 91 H 19 127/57 L 92 07/17/21 01:26 87 22 93 Laboratory Results Short CBC 07/17/21 Range/Units 07:40 WBC 2.76 L (4.8-10.8) K/uL Hgb 12.6 (12.0-16.0) g/dL Hct 37.8 (37-47) % Plt Count 181 (130-400) K/uL BMP 07/17/21 07:40 Sodium 138 Potassium 3.1 L Chloride 105 Carbon Dioxide 24 BUN 17 Creatinine 0.27 L Glucose 95 Calcium 8.4 L Liver Function 07/17/21 Range/Units 07:40 AST 24 (15-37) U/L ALT 31 (12-78) U/L Medications Administered Current Inpatient Medications Acetaminophen (Acetaminophen 325 Mg Tab) 650 mg PO Q4H PRN PRN Reason: Pain or Fever Stop: 08/14/21 15:25 Last Admin: 07/17/21 06:28 Dose: 650 mg Documented by: Ascorbic Acid (Ascorbic Acid 500 Mg Tab) 500 mg PO BID [facility] Stop: 08/14/21 20:59 Last Admin: 07/17/21 09:10 Dose: 500 mg Documented by: Celecoxib (Celebrex 200 Mg Cap) 200 mg PO BID [facility] Stop: 08/14/21 20:59 Last Admin: 07/17/21 09:11 Dose: 200 mg Documented by: Dextrose (Dextrose 50% 50 Ml Syringe) 25 - 50 ml IV UD PRN; Protocol PRN Reason: Hypoglycemia Protocol Stop: 08/14/21 15:25 Enoxaparin Sodium (Enoxaparin Inj 40 Mg/0.4 Ml Syr) 40 mg SQ Q12H [facility] Stop: 08/14/21 17:59 Last Admin: 07/17/21 05:11 Dose: 40 mg Documented by: Fluoxetine HCl (Fluoxetine Hcl 20 Mg Cap) 20 mg PO DAILY [facility] Stop: 08/15/21 08:59 Last Admin: 07/17/21 09:11 Dose: 20 mg Documented by: Folic Acid (Folic Acid 1 Mg Tab) 1 mg PO DAILY [facility] Stop: 08/15/21 08:59 Last Admin: 07/17/21 09:11 Dose: 1 mg Documented by: Gabapentin (Gabapentin 300 Mg Cap) 300 mg PO HS [facility] Stop: 08/14/21 20:59 Last Admin: 07/16/21 21:02 Dose: 300 mg Documented by: Glucagon (Glucagon For Inj 1 Mg Vial) 1 mg SQ UD PRN; Protocol PRN Reason: Hypoglycemia Protocol Stop: 08/14/21 15:25 Glucose (Glucose 10 Tabs/Tube) 4 - 8 tabs PO UD PRN; Protocol PRN Reason: Hypoglycemia Protocol Stop: 08/14/21 15:25 Glucose (Glucose 40% Gel 15 Gm Tube) 15 - 30 gm PO UD PRN; Protocol PRN Reason: Hypoglycemia Protocol Stop: 08/14/21 15:25 Ceftriaxone Sodium 2,000 mg/ (Dextrose) 50 mls @ 100 mls/hr IV Q24H [facility]; Protocol Stop: 07/25/21 13:29 Last Infusion: 07/16/21 16:08 Dose: Infused Documented by: Remdesivir 100 mg/ Sodium (Chloride) 250 mls @ 250 mls/hr IV Q24H [facility]; Protocol Stop: 07/19/21 12:59 Last Admin: 07/17/21 12:26 Dose: 250 mls/hr Documented by: Furosemide 20 mg/ Syringe 2 mls @ 4 mls/min IV DAILY [facility] Stop: 08/16/21 08:59 Dexamethasone 6 mg/ Syringe 1.5 mls @ 1 mls/min IV DAILY [facility] Stop: 08/16/21 08:59 Last Admin: 07/17/21 09:10 Dose: 1 mls/min Documented by: Insulin Aspart (Insulin Aspart 100 Units/Ml 3 Ml Pen) 0 units SC ACHS [facility] Stop: 08/14/21 16:29 Last Admin: 07/17/21 12:26 Dose: 4 units Documented by: Insulin Glargine (Insulin Glargine Solostar 100 Units/Ml 3 Ml Pen) 10 units SC BID [facility] Stop: 08/15/21 20:59 Miscellaneous (Carbohydrates For Hypoglycemia ) 15 - 30 gm PO UD PRN PRN Reason: Hypoglycemia Protocol Stop: 08/14/21 15:25 Ondansetron HCl (Ondansetron Inj 2 Mg/Ml 2 Ml Vial) 4 mg IV Q6H PRN PRN Reason: Nausea Stop: 08/14/21 15:25 Potassium Chloride (Potassium Chloride Crtab 20 Meq Tabcr) 40 meq PO Q6H [facility] Stop: 07/17/21 16:46 Last Admin: 07/17/21 12:25 Dose: 40 meq Documented by: Sodium Chloride (Sodium Chloride 0.9% 10ml Flush) 30 ml IV Q24H [facility] Stop: 07/20/21 13:01 Last Admin: 07/16/21 13:05 Dose: 30 ml Documented by: Trazodone HCl (Trazodone Hcl 100 Mg Tab) 100 mg PO HS PRN PRN Reason: insomnia Stop: 08/14/21 20:59 Vitamin D (Cholecalciferol 1,000 Units 25 Mcg Tab) 1,000 units PO QAM [facility] Stop: 08/14/21 15:25 Last Admin: 07/17/21 09:11 Dose: 1,000 units Documented by: Zinc Sulfate (Zinc Sulfate 220 Mg Capsule) 220 mg PO [facility] Stop: 08/14/21 15:25 Last Admin: 07/17/21 09:11 Dose: 220 mg Documented by:
[2021-07-17] MEDS: SODIUM CHLORIDE 0.9% 10ML FLUSH IV SCH (14:00)
[2021-07-17] MEDS: cefTRIAXone SODIUM 2,000 MG in DEXTROSE 5% 50 ML IV SCH (14:30)
[2021-07-17] MEDS: GABAPENTIN 300 MG CAP PO SCH (20:40)
[2021-07-17] MEDS: traZODone HCL 100 MG TAB PO PRN (20:40)
[2021-07-17] MEDS: INSULIN GLARGINE SOLOSTAR 100 UNITS/ML 3 ML PEN SC SCH (21:12)
[2021-07-18] MEDS: ENOXAPARIN INJ 40 MG/0.4 ML SYR SQ SCH ×2 (06:34→17:24)
[2021-07-18 07:44] LABS: Creatinine Clr Calc Pharmacy 278.2 ml/min; Est GFR (African American) > 150.0 ml/min; Est GFR (Non-African American) 137.3 ml/min
[2021-07-18 07:45] LABS: Alanine Aminotransferase 28 U/L (12-78); Aspartate Aminotransferase 21 U/L (15-37)
[2021-07-18] MEDS: ZINC SULFATE 220 MG CAPSULE PO SCH (08:24)
[2021-07-18] MEDS: CHOLECALCIFEROL 1,000 UNITS 25 MCG TAB PO SCH (08:24)
[2021-07-18] MEDS: FLUoxetine HCL 20 MG CAP PO SCH (08:24)
[2021-07-18] MEDS: FOLIC ACID 1 MG TAB PO SCH (08:24)
[2021-07-18] MEDS: CeleBREX 200 MG CAP PO SCH ×2 (08:25→21:04)
[2021-07-18] MEDS: dexAMETHasone 6 MG in SYRINGE 0 ML IV SCH (08:25)
[2021-07-18] MEDS: ASCORBIC ACID 500 MG TAB PO SCH ×2 (08:25→21:03)
[2021-07-18] MEDS: INSULIN GLARGINE SOLOSTAR 100 UNITS/ML 3 ML PEN SC SCH ×2 (08:52→22:00)
[2021-07-18] MEDS: INSULIN ASPART 100 UNITS/ML 3 ML PEN SC SCH ×4 (08:52→22:00)
[2021-07-18] MEDS: REMDESIVIR 100 MG in SODIUM CHLORIDE 0.9% 230 ML IV SCH (11:53)
[2021-07-18] MEDS: SODIUM CHLORIDE 0.9% 10ML FLUSH IV SCH (11:53)
[2021-07-18] MEDS: cefTRIAXone SODIUM 2,000 MG in DEXTROSE 5% 50 ML IV SCH (14:56)
--- NOTE | 2021-07-18 16:05 | Hospitalist Progress Note ---
Date of Service July 18, 2021 Assessment & Plan (1) Acute respiratory failure due to COVID-19: Plan: Doing well on hi flow oxygen/vapotherm for support. Will give additional Lasix 30mg IV now. Cont to prone as often as able, which she is doing. Continuous pulse ox monitoring. (2) Sepsis: Plan: resuscitated, Cont treatment for covid pneumonia and clinical pyelonephritis in this immunosuppressed patient. (3) Immunosuppressed status: (4) Pneumonia due to COVID-19 virus: Plan: Cont with daily dexamethasone and remdesivir. Monitor renal function and LFTs. Cont oxygen supplementation as needed. (5) Acute pyelonephritis: Plan: Ceftriaxone started empirically given septic appearance on arrival, leukopenia, flank pain an dysuria, fevers. Urine and blood cultures remain negative. She is somewhat improved clinically, reporting a resolution of flank pain and dysuria. Leukopenic on labs. Cont IV abx for now and plan for a short course of antibiotics to treat a presumed pyelonephritis. (6) Lupus: Plan: Takes MTX, recently took on two days ago and has been on a prednisone taper since Mon beginning at 15mg daily. Malar rash and joint pain is present-and this is resolved. Hold MTX, plaquenil and cont steroid therapy as above. (7) DMII (diabetes mellitus, type 2): Plan: Hold home medications, repeat A1C which was slightly uncontrolled in March 2021 at 7.6. Cont with glargine and novolog with intensification while on steroid therapy. Some hypoglycemia noted on current regimen which was loosened, glargin e reduced. Patient is eating. (8) Obesity: Plan: Lifestyle recommendations. (9) Insomnia: Plan: Cont trazodone per home regimen. Cut dose by 50% with ongoing hypoxia. (10) DVT prophylaxis: Plan: Lovenox Full Dispo-To home when medically stable. Lily Lopez DO [facility] Hospitalist Admission and Anticipated Discharge Date Admission Date: July 15, 2021 Subjective 46 yo F admitted with covid pneumonia. She is a lupus patient on plaquenil and methotrexate therapy who is not vaccinated. Remains hypoxic and doing well on hi flow overnight Stable on 40 LPM hi flow at 70%, maintaining 90% on average today Proned for approx 6 hours today denies dysuria, flank pain in good spirits Review of Systems Review of Systems: At least ten systems were reviewed and negative except as indicated in HPI above. Physical Exam Physical Exam: CONSTITUTIONAL: obese, vitals as above, generally well- appearing, NAD EYES: normal conjunctivae, no scleral icterus, ENT: external ear and nose normal, oropharynx clear NECK: trachea midline RESPIRATORY: good air movement, intermittent crackles-sparse, all lung jenkins, no wheezing or rales. Normal respiratory effort CARDIOVASCULAR: regular rate and rhythm, S1 and 2 heard without murmurs, gallops or rubs, no JVD, no peripheral edema GASTROINTESTINAL: soft, diffuse tenderness with left CVA tenderness, nondistended, suprapubic tenderness. MUSCULOSKELETAL: strength 5/5 throughout, head is normocephalic and atraumatic SKIN: warm and dry, still has malar rash, slightly improved from admission. NEUROLOGIC: No facial palsy, no dysarthria. Touch, pain and proprioception normal. CN 2-12 grossly intact, no sensory deficit, normal cognition, normal speech, no tremor PSYCHIATRIC: alert cooperative and oriented to person, place and time. Results & Data Results & Data ([facility]) Vital Signs (Past 12 Hours) Vital Signs Temp Pulse Resp BP Pulse Ox Pulse Ox 07/18/21 15:24 86 20 90 07/18/21 11:32 36.5 C 88 21 125/71 88 L 07/18/21 11:19 101 H 18 91 07/18/21 08:00 93 07/18/21 07:48 36.7 C 89 20 130/82 91 07/18/21 07:40 82 18 90 07/18/21 04:13 20 91 Laboratory Results [facility] 07/18/21 06:22 Creatinine 0.30 L Liver Function 07/18/21 Range/Units 06:22 AST 21 (15-37) U/L ALT 28 (12-78) U/L Medications Administered Current Inpatient Medications Acetaminophen (Acetaminophen 325 Mg Tab) 650 mg PO Q4H PRN PRN Reason: Pain or Fever Stop: 08/14/21 15:25 Last Admin: 07/17/21 06:28 Dose: 650 mg Documented by: Ascorbic Acid (Ascorbic Acid 500 Mg Tab) 500 mg PO BID [facility] Stop: 08/14/21 20:59 Last Admin: 07/18/21 08:25 Dose: 500 mg Documented by: Celecoxib (Celebrex 200 Mg Cap) 200 mg PO BID [facility] Stop: 08/14/21 20:59 Last Admin: 07/18/21 08:25 Dose: 200 mg Documented by: Dextrose (Dextrose 50% 50 Ml Syringe) 25 - 50 ml IV UD PRN; Protocol PRN Reason: Hypoglycemia Protocol Stop: 08/14/21 15:25 Enoxaparin Sodium (Enoxaparin Inj 40 Mg/0.4 Ml Syr) 40 mg SQ Q12H [facility] Stop: 08/14/21 17:59 Last Admin: 07/18/21 06:34 Dose: 40 mg Documented by: Fluoxetine HCl (Fluoxetine Hcl 20 Mg Cap) 20 mg PO DAILY [facility] Stop: 08/15/21 08:59 Last Admin: 07/18/21 08:24 Dose: 20 mg Documented by: Folic Acid (Folic Acid 1 Mg Tab) 1 mg PO DAILY [facility] Stop: 08/15/21 08:59 Last Admin: 07/18/21 08:24 Dose: 1 mg Documented by: Gabapentin (Gabapentin 300 Mg Cap) 300 mg PO HS [facility] Stop: 08/14/21 20:59 Last Admin: 07/17/21 20:40 Dose: 300 mg Documented by: Glucagon (Glucagon For Inj 1 Mg Vial) 1 mg SQ UD PRN; Protocol PRN Reason: Hypoglycemia Protocol Stop: 08/14/21 15:25 Glucose (Glucose 10 Tabs/Tube) 4 - 8 tabs PO UD PRN; Protocol PRN Reason: Hypoglycemia Protocol Stop: 08/14/21 15:25 Glucose (Glucose 40% Gel 15 Gm Tube) 15 - 30 gm PO UD PRN; Protocol PRN Reason: Hypoglycemia Protocol Stop: 08/14/21 15:25 Ceftriaxone Sodium 2,000 mg/ (Dextrose) 50 mls @ 100 mls/hr IV Q24H [facility]; Protocol Stop: 07/25/21 13:29 Last Infusion: 07/18/21 15:27 Dose: Infused Documented by: Remdesivir 100 mg/ Sodium (Chloride) 250 mls @ 250 mls/hr IV Q24H [facility]; Protocol Stop: 07/19/21 12:59 Last Infusion: 07/18/21 13:23 Dose: Infused Documented by: Furosemide 20 mg/ Syringe 2 mls @ 4 mls/min IV DAILY [facility] Stop: 08/16/21 08:59 Dexamethasone 6 mg/ Syringe 1.5 mls @ 1 mls/min IV DAILY [facility] Stop: 08/16/21 08:59 Last Admin: 07/18/21 08:25 Dose: 1 mls/min Documented by: Insulin Aspart (Insulin Aspart 100 Units/Ml 3 Ml Pen) 0 units SC ACHS [facility] Stop: 08/14/21 16:29 Last Admin: 07/18/21 12:23 Dose: Not Given Documented by: Insulin Glargine (Insulin Glargine Solostar 100 Units/Ml 3 Ml Pen) 10 units SC BID [facility] Stop: 08/15/21 20:59 Last Admin: 07/18/21 08:52 Dose: 10 units Documented by: Miscellaneous (Carbohydrates For Hypoglycemia ) 15 - 30 gm PO UD PRN PRN Reason: Hypoglycemia Protocol Stop: 08/14/21 15:25 Ondansetron HCl (Ondansetron Inj 2 Mg/Ml 2 Ml Vial) 4 mg IV Q6H PRN PRN Reason: Nausea Stop: 08/14/21 15:25 Sodium Chloride (Sodium Chloride 0.9% 10ml Flush) 30 ml IV Q24H [facility] Stop: 07/20/21 13:01 Last Admin: 07/18/21 11:53 Dose: 30 ml Documented by: Trazodone HCl (Trazodone Hcl 100 Mg Tab) 100 mg PO HS PRN PRN Reason: insomnia Stop: 08/14/21 20:59 Last Admin: 07/17/21 20:40 Dose: 100 mg Documented by: Vitamin D (Cholecalciferol 1,000 Units 25 Mcg Tab) 1,000 units PO QAM [facility] Stop: 08/14/21 15:25 Last Admin: 07/18/21 08:24 Dose: 1,000 units Documented by: Zinc Sulfate (Zinc Sulfate 220 Mg Capsule) 220 mg PO QAM [facility] Stop: 08/14/21 15:25 Last Admin: 07/18/21 08:24 Dose: 220 mg Documented by:
[2021-07-18] MEDS ORDERED: FUROSEMIDE 20 MG in SYRINGE 0 ML IV SCH (16:45)
[2021-07-18] MEDS ORDERED: FUROSEMIDE 40 MG/4 ML VIAL IV SCH (16:45)
--- NOTE | 2021-07-18 17:36 | Pulmonary Consultation ---
Date of Consultation July 18, 2021 Assessment & Plan (1) Pneumonia due to 2019-nCoV: (2) Acute respiratory failure due to COVID-19: (3) Obesity: Chest x-ray 07/18/2021 personally reviewed: Portable film, bilateral alveolar opacities appreciated diffuse. Bilateral costophrenic and cardiophrenic angles are clean, increased cardiac silhouette --Acute hypoxic respiratory failure Secondary to multilobar COVID-19 pneumonia COVID-19 PCR positive 07/15/2021 CRP 10.7--> 11.2-->13 Procalcitonin negative Continue with O2 supplementation to keep oxygen saturation between 90-92%. Awake proning will be helpful Continue with incentive spirometry Continue with flutter valve. Recommend patient to be kept euvolemic to negative balance --History of lupus On methotrexate and hydroxychloroquine --Pancytopenia Likely secondary from methotrexate --Obesity with probable GRETCHEN/OHS CPAP While in the hospital Outpatient polysomnography Plan: Given the CRP is still going up, I will increase the dexamethasone to 10 mg on a daily basis. CRP could also be going up from underlying sepsis. Unfortunately we do not have Tocilizumab in the hospital Awake proning will be beneficial to the patient Continue with diuretics to keep the patient negative balance Start CPAP at 6 and then increase it to 8 if the patient is able to tolerate. Given the patient is on celecoxib twice daily and we are giving the patient high-dose steroids, I will start the patient on Protonix twice a day p.o. Please note the above document was generated using voice recognition software. It may contain grammatical, syntax or spelling errors.Any formal questions or concerns about the content, text or information contained within the body of this dictation should be directly addressed to the provider for clarification. History of Present Illness Attending Physician: Lily Lopez DO History of Present Illness 46-year-old female past medical history of lupus on methotrexate and hydroxychloroquine presented to the hospital with complaints of diarrhea, fever, nausea as well as dysuria and flank pain. Patient was started on prednisone taper by rheumatology thinking is a lupus flare. Patient was found to be Covid positive. She also was found to have pyelonephritis and started on antibiotics Pulmonary consulted as patient was requiring increased oxygen requirement At the time of examination patient stated that the symptoms started last Brynn Patient's whole family is Covid positive She says she is doing better compared to when she came to the hospital She has been urinating well Fair appetite. She has been self proning. Denies any nausea or vomiting. No diarrhea. No headache. She has not been vaccinated against COVID-19 Social history: Non-smoker, no history of asthma. No illicit drug use. Allergies Allergy/AdvReac Type Severity Reaction Status Date / Time tree nut Allergy Severe anaphylaxis Verified 07/15/21 12:49 Home Medications Medication Instructions Recorded Confirmed Type Ibuprofen (Advil) 800 mg PO TID PRN #0 tab 02/16/15 History canagliflozin 300 mg tablet 300 mg PO DAILY 07/15/21 07/15/21 History (Invokana) celecoxib 200 mg capsule 200 mg PO BID 07/15/21 07/15/21 History fluoxetine 20 mg capsule 20 mg PO DAILY 07/15/21 07/15/21 History folic acid 1 mg tablet 1 mg PO DAILY 07/15/21 07/15/21 History gabapentin 300 mg capsule 300 mg PO HS 07/15/21 07/15/21 History hydroxychloroquine 200 mg tablet 200 mg PO Q2D 07/15/21 07/15/21 History hydroxychloroquine 200 mg tablet 100 mg PO Q2D 07/15/21 07/15/21 History (Plaquenil) linagliptin 5 mg tablet (Tradjenta) 5 mg PO DAILY 07/15/21 07/15/21 History methotrexate sodium 25 mg/mL 15 mg PO TH@0900 07/15/21 07/15/21 History injection solution semaglutide (Ozempic) 0.5 mg SUBCUT TU@0900 07/15/21 07/15/21 History trazodone 100 mg tablet 100 mg PO HS 07/15/21 07/15/21 History Patient History Medical History (Updated 07/17/21 @ 07:24 by Lily Lopez DO) DMII (diabetes mellitus, type 2) Lupus Surgical History (Updated 07/15/21 @ 12:51 by Lily Lopez DO) H/O section History of incisional hernia repair History of tonsillectomy and adenoidectomy S/P appy Family History (Updated 07/15/21 @ 12:50 by Lily Lopez DO) Father Prostate cancer Diabetes Hypertension Mother Stroke Diabetes Hypertension CHF (congestive heart failure) Social History (Updated 07/15/21 @ 12:52 by Lily Lopez DO) Smoking Status: Former smoker Do You Dip or Chew Tobacco: No; Hx Alcohol Use: No Hx Substance Use: No Preferred Language: Indonesian Communication Ability: Effective Counselor Aide Required: No Beliefs That Will Affect Care: None marital status: Current Living Situation: Spouse and Family current occupational status: employed current occupation: nurse How many Children do You have: 2 Other Information That Helps Us Care for You: No Feels Safe at Home: Yes Safety Concerns: Feels Safe At This Time Assistive Devices: Glasses Review of Systems Review of Systems: All systems reviewed & are unremarkable except as noted in HPI & below Physical Exam Physical Exam: Constitutional: No acute distress HEENT: EOMI, PERRLA Respiratory system: Decreased air entry bilaterally, no wheeze, no rhonchi, positive crackles bilateral lower lobes CVS: S1-S2 positive, no murmurs or gallops Abdomen: Soft, nontender, nondistended, positive bowel sounds x4, obese Extremities: +2 pulses bilaterally radialis/ dorsalis pedis, no cyanosis, no edema Neuro: Awake alert oriented x3 Psych: Normal mood and affect G/U: No Sparks Skin: no rashes, warm and dry Lymphatic: no cervical or axillary lymphadenopathy Results & Data Results & Data ([facility]) Vital Signs (Past 12 Hours) Vital Signs Temp Pulse Resp BP Pulse Ox Pulse Ox 07/18/21 16:22 36.5 C 87 23 121/76 92 07/18/21 15:24 86 20 90 07/18/21 11:32 36.5 C 88 21 125/71 88 L 07/18/21 11:19 101 H 18 91 07/18/21 08:00 93 07/18/21 07:48 36.7 C 89 20 130/82 91 07/18/21 07:40 82 18 90 07/17/21 07:40 07/18/21 06:22 PG Care Time/CCT Total # of Minutes Spent Total Time Spent with Patient: Total time spent is greater than 50% in coordinat ion of care (as documented) at patient's floor/unit and/or counseling patient: Coding Level of Care Code 38488 Inpt Consult Level 4 Diagnoses Pneumonia due to 2019-nCoV U07.1; J12.82 Acute respiratory failure due to COVID-19 U07.1; J96.00 Obesity E66.9
[2021-07-18] MEDS ORDERED: dexAMETHasone 4 MG in SYRINGE 0 ML IV ONE (18:00)
[2021-07-18] MEDS: GABAPENTIN 300 MG CAP PO SCH (21:03)
[2021-07-18] MEDS: traZODone HCL 100 MG TAB PO PRN (21:04)
[2021-07-18] MEDS: guaiFENesin 600 MG TABCR PO SCH (21:04)
[2021-07-18] MEDS: PANTOprazole 40 MG TAB PO SCH (21:06)
[2021-07-19] MEDS: ENOXAPARIN INJ 40 MG/0.4 ML SYR SQ SCH ×2 (06:01→19:13)
[2021-07-19 07:16] LABS: Basophils # (auto) 0.01 K/uL (0-0.2); Basophils % (auto) 0.3 %; Hematocrit (blood only) 41.1 % (37-47); Hemoglobin 13.6 g/dL (12.0-16.0); Immature Granulocytes # (auto) 0.01 K/uL (0.00-0.02); Immature Granulocytes % (auto) 0.3 %; Lymphocytes # (auto) 0.46 K/uL (1.2-3.4); Lymphocytes % (auto) 11.7 %; Mean Corpuscular Hemoglobin 28.3 pg (25-34); Mean Corpuscular Hgb Conc 33.1 g/dL (32-36); Mean Corpuscular Volume 85.6 fL (80-100); Mean Platelet Volume 8.9 fL (7.4-10.4); Monocytes # (auto) 0.19 K/uL (0.11-0.59); Monocytes % (auto) 4.8 %; Neutrophils # (auto) 3.25 K/uL (1.4-6.5); Neutrophils % (auto) 82.9 %; Platelet Count 218 K/uL (130-400); RDW Coefficient of Variation 14.8 % (11.5-14.5); RDW Standard Deviation 46.2 fL (36.4-46.3); White Blood Count 3.92 K/uL (4.8-10.8)
[2021-07-19 07:59] LABS: BUN Creatinine Ratio 53.3 (10-20); C Reactive Protein 9.96 mg/dl (0-0.29); Calcium 9.2 mg/dl (8.5-10.1); Magnesium 1.9 mg/dl (1.8-2.4); Potassium 3.7 mmol/L (3.5-5.1)
[2021-07-19] MEDS: dexAMETHasone 10 MG in SYRINGE 0 ML IV SCH (09:03)
[2021-07-19] MEDS: FLUoxetine HCL 20 MG CAP PO SCH (09:03)
[2021-07-19] MEDS: PANTOprazole 40 MG TAB PO SCH ×2 (09:03→20:14)
[2021-07-19] MEDS: INSULIN GLARGINE SOLOSTAR 100 UNITS/ML 3 ML PEN SC SCH ×2 (09:04→20:17)
[2021-07-19] MEDS: INSULIN ASPART 100 UNITS/ML 3 ML PEN SC SCH ×4 (09:05→20:17)
[2021-07-19] MEDS: ZINC SULFATE 220 MG CAPSULE PO SCH (09:07)
[2021-07-19] MEDS: FOLIC ACID 1 MG TAB PO SCH (09:08)
[2021-07-19] MEDS: ASCORBIC ACID 500 MG TAB PO SCH ×2 (09:08→20:13)
[2021-07-19] MEDS: guaiFENesin 600 MG TABCR PO SCH ×2 (09:08→20:15)
[2021-07-19] MEDS: CHOLECALCIFEROL 1,000 UNITS 25 MCG TAB PO SCH (09:08)
[2021-07-19] MEDS: CeleBREX 200 MG CAP PO SCH ×2 (09:08→20:13)
--- NOTE | 2021-07-19 10:29 | XRay Report ---
XR chest 1V portable CLINICAL HISTORY: f/u COMPARISON STUDY: Chest radiograph July 17, 2021/ FINDINGS: Lung volumes are normal. There is no pneumothorax or pleural effusion. There is subtle luce ncy along the left aspect of the mediastinum. Extensive bilateral airspace opacities are noted. These have slightly improved since prior examination. Cardiomediastinal silhouette is stable. IMPRESSION: 1. Slight improvement in extensive bilateral airspace opacities consistent with an infectious process . 2. Subtle lucency along the left aspect of the mediastinum. This is likely artifactual however a smal l amount of pneumomediastinum cannot be excluded. This can be assessed on follow-up chest radiographs . ACT 112: Negative or not required by law. Electronically signed by: Brennen Mahoney M.D. 07/19/2021 10:28 AM
[2021-07-19] MEDS: cefTRIAXone SODIUM 2,000 MG in DEXTROSE 5% 50 ML IV SCH (12:41)
[2021-07-19] MEDS: REMDESIVIR 100 MG in SODIUM CHLORIDE 0.9% 230 ML IV SCH (13:34)
--- NOTE | 2021-07-19 14:04 | Pulmonology Progress Note ---
Date of Service July 19, 2021 Assessment & Plan (1) Pneumonia due to 2019-nCoV: (2) Acute respiratory failure due to COVID-19: (3) Obesity: Plan: Chest x-ray 07/18/2021 personally reviewed: Portable film, bilateral alveolar opacities appreciated diffuse. Bilateral costophrenic and cardiophrenic angles are clean, increased cardiac silhouette --Acute hypoxic respiratory failure Secondary to multilobar COVID-19 pneumonia COVID-19 PCR positive 07/15/2021 CRP 10.7--> 11.2-->13 --> 9.96 Procalcitonin negative Continue with O2 supplementation to keep oxygen saturation between 90-92%. Awake proning will be helpful Continue with incentive spirometry Continue with flutter valve. Recommend patient to be kept euvolemic to negative balance --History of lupus On methotrexate and hydroxychloroquine --Pancytopenia Likely secondary from methotrexate --Obesity with probable GRETCHEN/OHS CPAP While in the hospital Outpatient polysomnography Plan: In/out: -1810, urine output 3200 Patient has been diuresing well Looking at the chest x-ray it does seem that patient also has pulmonary edema component. Would continue with diuresis to keep her negative balance CRP has started to trend down. Continue with 10 mg of dexamethasone Patient did not use CPAP overnight. I advised her to use it at least when she is asleep to help her with breathing Please note the above document was generated using voice recognition software. It may contain grammatical, syntax or spelling errors.Any formal questions or concerns about the content, text or information contained within the body of this dictation should be directly addressed to the provider for clarification. Admission and Anticipated Discharge Date Admission Date: July 15, 2021 Subjective Patient seen and examined at bedside. No acute distress, no adverse events overnight. Patient was saturating 91% on 40 L, 70%, I went down to 65% she was still sat urating well She has been urinating well. Says that she is feeling better Has been using incentive spirometry as well as flutter valve No nausea or vomiting. Fair appetite Review of Systems Review of Systems: All systems reviewed & are unremarkable except as noted in Subjective Physical Exam Physical Exam: Constitutional: No acute distress HEENT: EOMI, PERRLA Respiratory system: Decreased air entry bilaterally, no wheeze, no rhonchi, positive crackles bilateral lower lobes CVS: S1-S2 positive, no murmurs or gallops Abdomen: Soft, nontender, nondistended, positive bowel sounds x4, obese Extremities: +2 pulses bilaterally radialis/ dorsalis pedis, no cyanosis, no edema Neuro: Awake alert oriented x3 Psych: Normal mood and affect G/U: No Sparks Skin: no rashes, warm and dry Lymphatic: no cervical or axillary lymphadenopathy Results & Data Results & [facility] ([facility]) Vital Signs (Past 12 Hours) Vital Signs Temp Pulse Resp BP Pulse Ox 07/19/21 11:24 83 20 94 07/19/21 11:07 36.7 C 79 22 111/63 93 07/19/21 07:24 77 20 92 07/19/21 07:18 36.7 C 76 23 91/68 L 94 07/19/21 03:29 36.2 C L 77 18 116/70 96 07/19/21 03:06 88 20 88 L 07/19/21 06:56 07/19/21 06:56 PG Care Time/CCT Total # of Minutes Spent Total Time Spent with Patient: Total time spent is greater than 50% in coordi nation of care (as documented) at patient's floor/unit and/or counseling patient: Coding Level of Care Code 32577 Subseq Hosp Care Lvl 3 Diagnoses Pneumonia due to 2019-nCoV U07.1; J12.82 Acute respiratory failure due to COVID-19 U07.1; J96.00 Obesity E66.9
[2021-07-19] MEDS: SODIUM CHLORIDE 0.9% 10ML FLUSH IV SCH (15:32)
--- NOTE | 2021-07-19 18:31 | Hospitalist Progress Note ---
Date of Service July 19, 2021 Assessment & Plan (1) Acute respiratory failure due to COVID-19: Plan: Doing well on hi flow oxygen/vapotherm for support. Lasix 20mg IV last night with 1.8L out net overnight. Cont to prone as often as able, which she is doing. Continuous pulse ox monitoring. Pulm following and increased dexamethasone to 10mg IV daily. CRP trending down. (2) Sepsis: Plan: resuscitated, Cont treatment for covid pneumonia and clinical pyelonephritis in this immunosuppressed patient. (3) Immunosuppressed status: Plan: Holding MTX, plaquenil at this time. Improved on steorid therapy given from a joint symptom perspective. (4) Pneumonia due to COVID-19 virus: Plan: Cont with daily dexamethasone and remdesivir. Monitor renal function and LFTs. Cont oxygen supplementation as needed. (5) Acute pyelonephritis: Plan: Ceftriaxone started empirically given septic appearance on arrival, leukopenia, flank pain an dysuria, fevers. Urine and blood cultures remain negative. She is clinically improved with a resolution of flank pain and dysuria. Leukopenia on labwork is improved. Cont IV abx for now and plan for a short course of antibiotics to treat a presumed pyelonephritis. (6) Lupus: Plan: Takes MTX, recently took on two days ago and has been on a prednisone taper since Mon beginning at 15mg daily. Malar rash and joint pain is present-and this is resolved. Hold MTX, plaquenil and cont steroid therapy as above. (7) DMII (diabetes mellitus, type 2): Plan: Hold home medications, repeat A1C which was slightly uncontrolled in March 2021 at 7.6. Cont with glargine and novolog with intensification while on steroid th erapy. Some hypoglycemia noted on current regimen which was loosened, glargine reduced. Patient is eating. (8) Obesity: Plan: Lifestyle recommendations. (9) Insomnia: Plan: Cont trazodone per home regimen. Cut dose by 50% with ongoing hypoxia. (10) DVT prophylaxis: Plan: Lovenox Full Dispo-Cont PCU monitoring. Lily Lopez DO [facility] Hospitalist Admission and Anticipated Discharge Date Admission Date: July 15, 2021 Subjective 46 yo F admitted with covid pneumonia. She is a lupus patient on plaquenil and methotrexate therapy who is not vaccinated. Remains hypoxic and doing well on hi flow overnight Stable on Vapotherm, still maintaining 90% on average today Proning frequently denies dysuria, flank pain in good spirits Tolerating PO Review of Systems Review of Systems: At least ten systems were reviewed and negative except as indicated in HPI above. Physical Exam Physical Exam: CONSTITUTIONAL: obese, vitals as above, generally well- appearing, NAD EYES: normal conjunctivae, no scleral icterus, ENT: external ear and nose normal, oropharynx clear NECK: trachea midline RESPIRATORY: good air movement, intermittent crackles-sparse, all lung jenkins, no wheezing or rales. Normal respiratory effort CARDIOVASCULAR: regular rate and rhythm, S1 and 2 heard without murmurs, gallops or rubs, no JVD, no peripheral edema GASTROINTESTINAL: soft, diffuse tenderness with left CVA tenderness-resolved, nondistended, nontender. MUSCULOSKELETAL: strength 5/5 throughout, head is normocephalic and atraumatic SKIN: warm and dry NEUROLOGIC: No facial palsy, no dysarthria. Touch, pain and proprioception normal. CN 2-12 grossly intact, no sensory deficit, normal cognition, normal speech, no tremor PSYCHIATRIC: alert cooperative and oriented to person, place and time. Results & Data Results & Data ([facility]) Vital Signs (Past 12 Hours) Vital Signs Temp Pulse Resp BP BP Pulse Ox 07/19/21 16:42 92 07/19/21 15:36 36.7 C 84 23 114/63 88 L 07/19/21 14:58 73 22 92 07/19/21 11:24 83 20 94 07/19/21 11:07 36.7 C 79 22 111/63 93 07/19/21 07:24 77 20 92 07/19/21 07:18 36.7 C 76 23 91/68 L 94 Laboratory Results Short CBC 07/19/21 Range/Units 06:56 WBC 3.92 L (4.8-10.8) K/uL Hgb 13.6 (12.0-16.0) g/dL Hct 41.1 (37-47) % Plt Count 218 (130-400) K/uL BMP 07/19/21 06:56 Sodium 139 Potassium 3.7 D Chloride 106 Carbon Dioxide 26 BUN 21 H Creatinine 0.39 L Glucose 114 H Calcium 9.2 Liver Function 07/19/21 Range/Units 06:56 AST 20 (15-37) U/L ALT 25 (12-78) U/L Medications Administered Current Inpatient Medications Acetaminophen (Acetaminophen 325 Mg Tab) 650 mg PO Q4H PRN PRN Reason: Pain or Fever Stop: 08/14/21 15:25 Last Admin: 07/17/21 06:28 Dose: 650 mg Documented by: Ascorbic Acid (Ascorbic Acid 500 Mg Tab) 500 mg PO BID [facility] Stop: 08/14/21 20:59 Last Admin: 07/19/21 09:08 Dose: 500 mg Documented by: Celecoxib (Celebrex 200 Mg Cap) 200 mg PO BID [facility] Stop: 08/14/21 20:59 Last Admin: 07/19/21 09:08 Dose: 200 mg Documented by: Dextrose (Dextrose 50% 50 Ml Syringe) 25 - 50 ml IV UD PRN; Protocol PRN Reason: Hypoglycemia Protocol Stop: 08/14/21 15:25 Enoxaparin Sodium (Enoxaparin Inj 40 Mg/0.4 Ml Syr) 40 mg SQ Q12H [facility] Stop: 08/14/21 17:59 Last Admin: 07/19/21 06:01 Dose: 40 mg Documented by: Fluoxetine HCl (Fluoxetine Hcl 20 Mg Cap) 20 mg PO DAILY [facility] Stop: 08/15/21 08:59 Last Admin: 07/19/21 09:03 Dose: 20 mg Documented by: Folic Acid (Folic Acid 1 Mg Tab) 1 mg PO DAILY [facility] Stop: 08/15/21 08:59 Last Admin: 07/19/21 09:08 Dose: 1 mg Documented by: Gabapentin (Gabapentin 300 Mg Cap) 300 mg PO HS [facility] Stop: 08/14/21 20:59 Last Admin: 07/18/21 21:03 Dose: 300 mg Documented by: Glucagon (Glucagon For Inj 1 Mg Vial) 1 mg SQ UD PRN; Protocol PRN Reason: Hypoglycemia Protocol Stop: 08/14/21 15:25 Glucose (Glucose 10 Tabs/Tube) 4 - 8 tabs PO UD PRN; Protocol PRN Reason: Hypoglycemia Protocol Stop: 08/14/21 15:25 Glucose (Glucose 40% Gel 15 Gm Tube) 15 - 30 gm PO UD PRN; Protocol PRN Reason: Hypoglycemia Protocol Stop: 08/14/21 15:25 Guaifenesin (Guaifenesin 600 Mg Tabcr) 600 mg PO Q12 [facility] Stop: 08/17/21 20:59 Last Admin: 07/19/21 09:08 Dose: 600 mg Documented by: Ceftriaxone Sodium 2,000 mg/ (Dextrose) 50 mls @ 100 mls/hr IV Q24H [facility]; Protocol Stop: 07/25/21 13:29 Last Infusion: 07/19/21 13:34 Dose: Infused Documented by: Furosemide 20 mg/ Syringe 2 mls @ 4 mls/min IV DAILY [facility] Stop: 08/16/21 08:59 Dexamethasone 10 mg/ Syringe 2.5 mls @ 1 mls/min IV Q24H [facility] Stop: 08/18/21 08:59 Last Admin: 07/19/21 09:03 Dose: 1 mls/min Documented by: Insulin Aspart (Insulin Aspart 100 Units/Ml 3 Ml Pen) 0 units SC ACHS [facility] Stop: 08/14/21 16:29 Last Admin: 07/19/21 17:44 Dose: 11 units Documented by: Insulin Glargine (Insulin Glargine Solostar 100 Units/Ml 3 Ml Pen) 10 units SC BID [facility] Stop: 08/15/21 20:59 Last Admin: 07/19/21 09:04 Dose: 10 units Documented by: Miscellaneous (Carbohydrates For Hypoglycemia ) 15 - 30 gm PO UD PRN PRN Reason: Hypoglycemia Protocol Stop: 08/14/21 15:25 Ondansetron HCl (Ondansetron Inj 2 Mg/Ml 2 Ml Vial) 4 mg IV Q6H PRN PRN Reason: Nausea Stop: 08/14/21 15:25 Pantoprazole Sodium (Pantoprazole 40 Mg Tab) 40 mg PO BID [facility] Stop: 08/17/21 20:59 Last Admin: 07/19/21 09:03 Dose: 40 mg Documented by: Sodium Chloride (Sodium Chloride 0.9% 10ml Flush) 30 ml IV Q24H [facility] Stop: 07/20/21 13:01 Last Admin: 07/19/21 15:32 Dose: 30 ml Documented by: Trazodone HCl (Trazodone Hcl 100 Mg Tab) 100 mg PO HS PRN PRN Reason: insomnia Stop: 08/14/21 20:59 Last Admin: 07/18/21 21:04 Dose: 100 mg Documented by: Vitamin D (Cholecalciferol 1,000 Units 25 Mcg Tab) [facility] [place] [facility] Stop: 08/14/21 15:25 Last Admin: 07/19/21 09:08 Dose: 1,000 units Documented by: Zinc Sulfate (Zinc Sulfate 220 Mg Capsule) 220 mg PO [facility] Stop: 08/14/21 15:25 Last Admin: 07/19/21 09:07 Dose: 220 mg Documented by:
[2021-07-19] MEDS: GABAPENTIN 300 MG CAP PO SCH (20:13)
[2021-07-19] MEDS: traZODone HCL 100 MG TAB PO PRN (20:14)
[2021-07-20] MEDS: ENOXAPARIN INJ 40 MG/0.4 ML SYR SQ SCH ×2 (05:16→17:32)
[2021-07-20 06:29] LABS: Hematocrit (blood only) 41.5 % (37-47); Hemoglobin 13.7 g/dL (12.0-16.0); Mean Corpuscular Hemoglobin 28.2 pg (25-34); Mean Corpuscular Volume 85.6 fL (80-100); Mean Platelet Volume 9.2 fL (7.4-10.4); Platelet Count 210 K/uL (130-400); RDW Coefficient of Variation 14.7 % (11.5-14.5); RDW Standard Deviation 45.8 fL (36.4-46.3); Red Blood Count 4.85 M/uL (4.2-5.4); White Blood Count 4.55 K/uL (4.8-10.8)
[2021-07-20 06:59] LABS: BUN Creatinine Ratio 57.6 (10-20); C Reactive Protein 8.19 mg/dl (0-0.29); Calcium 9.1 mg/dl (8.5-10.1); Creatinine Clr Calc Pharmacy 224.5 ml/min; Est GFR (African American) 148.5 ml/min; Est GFR (Non-African American) 128.2 ml/min; Potassium 3.5 mmol/L (3.5-5.1)
[2021-07-20] MEDS: dexAMETHasone 10 MG in SYRINGE 0 ML IV SCH (08:04)
[2021-07-20] MEDS: ASCORBIC ACID 500 MG TAB PO SCH ×2 (08:05→20:20)
[2021-07-20] MEDS: CHOLECALCIFEROL 1,000 UNITS 25 MCG TAB PO SCH (08:05)
[2021-07-20] MEDS: CeleBREX 200 MG CAP PO SCH ×2 (08:05→20:21)
[2021-07-20] MEDS: guaiFENesin 600 MG TABCR PO SCH ×2 (08:06→20:20)
[2021-07-20] MEDS: PANTOprazole 40 MG TAB PO SCH ×2 (08:06→20:20)
[2021-07-20] MEDS: ZINC SULFATE 220 MG CAPSULE PO SCH (08:06)
[2021-07-20] MEDS: FLUoxetine HCL 20 MG CAP PO SCH (08:06)
[2021-07-20] MEDS: FOLIC ACID 1 MG TAB PO SCH (08:07)
[2021-07-20] MEDS: INSULIN GLARGINE SOLOSTAR 100 UNITS/ML 3 ML PEN SC SCH ×2 (09:10→21:02)
[2021-07-20] MEDS: INSULIN ASPART 100 UNITS/ML 3 ML PEN SC SCH ×4 (09:11→20:18)
--- NOTE | 2021-07-20 11:33 | Hospitalist Progress Note ---
Date of Service July 20, 2021 Assessment & Plan (1) Acute respiratory failure due to COVID-19: Plan: Doing well on hi flow oxygen/vapotherm for support. Lasix daily with 1.7L out net overnight. Cont to prone as often as able, which she is doing. Continuous pulse ox monitoring. Pulm following and increased dexamethasone to 10mg IV daily. CRP trending down. (2) Sepsis: Plan: resuscitated, Cont treatment for covid pneumonia and clinical pyelonephritis in this immunosuppressed patient. (3) Immunosuppressed status: Plan: Holding MTX, plaquenil at this time. Improved on steorid therapy given from a joint symptom perspective. (4) Pneumonia due to COVID-19 virus: Plan: Cont with daily dexamethasone and remdesivir. Monitor renal function and LFTs. Cont oxygen supplementation as needed. (5) Acute pyelonephritis: Plan: Ceftriaxone started empirically given septic appearance on arrival, leukopenia, flank pain an dysuria, fevers. Urine and blood cultures remain negative. She i s clinically improved with a resolution of flank pain and dysuria. Leukopenia on labwork is improved. Fever this am, cont IV abx for now and plan for a short course of antibiotics to treat a presumed pyelonephritis. (6) Lupus: Plan: Takes MTX, recently took on two days ago and has been on a prednisone taper since Mon beginning at 15mg daily. Malar rash and joint pain resolved. Hold MTX, plaquenil and cont steroid therapy as above. (7) DMII (diabetes mellitus, type 2): Plan: Hold home medications, repeat A1C which was slightly uncontrolled in March 2021 at 7.6. Cont with glargine and novolog with intensification while on steroid therapy. Cont current regimen. (8) Obesity: Plan: Lifestyle recommendations on discharge to ensure efforts to decrease percent body fat and increase lean muscle mass. (9) Insomnia: Plan: Cont trazodone per home regimen. Cut dose by 50% with ongoing hypoxia. (10) DVT prophylaxis: Plan: Lovenox Full Dispo-Cont PCU monitoring. Lily Lopez DO [facility] Hospitalist Admission and Anticipated Discharge Date Admission Date: July 15, 2021 Subjective 46 yo F admitted with acute respiratory failure 2/2 covid pneumonia. She is a lupus patient on plaquenil and methotrexate therapy who is not vaccinated. Remains hypoxic and doing well on BIPAP overnight-went for 7 hours Stable on Vapotherm, still maintaining 90-92% on average today Proning frequently denies dysuria, flank pain in good spirits Had an episode of hypoxia which scared her this am-while transitioning off the BIPAP she went to the bathroom without supplementating in place Dropped her oxygen levels and took a while to recover-=-doing well now. Fever this am 38C-treated with Celebrex. Tolerating PO Review of Systems Review of Systems: At least ten systems were reviewed and negative except as indicated in HPI above. Physical Exam Physical Exam: CONSTITUTIONAL: obese, vitals as above, generally well- appearing, NAD EYES: normal conjunctivae, no scleral icterus, ENT: external ear and nose normal, oropharynx clear NECK: trachea midline RESPIRATORY: diminished breath sounds throughout,no crackles, wheezing or rales. Normal respiratory effort CARDIOVASCULAR: regular rate and rhythm, S1 and 2 heard without murmurs, gallops or rubs, no JVD, no peripheral edema GASTROINTESTINAL: soft, nondistended, nontender. MUSCULOSKELETAL: strength 5/5 throughout, head is normocephalic and atraumatic SKIN: warm and dry NEUROLOGIC: No facial palsy, no dysarthria. Touch, pain and proprioception normal. CN 2-12 grossly intact, no sensory deficit, normal cognition, normal speech, no tremor PSYCHIATRIC: alert cooperative and oriented to person, place and time. Results & Data Results & Data ([facility]) Vital Signs (Past 12 Hours) Vital Signs Temp Pulse Pulse Resp BP BP Pulse Ox 07/20/21 08:00 85 07/20/21 07:35 38.0 C H 92 H 20 120/70 94 07/20/21 07:13 93 H 22 92 07/20/21 05:27 89 24 92 07/20/21 03:38 37.1 C 84 20 115/50 L 96 07/20/21 03:25 78 22 96 07/20/21 01:13 80 Laboratory Results Short CBC 07/20/21 Range/Units 05:58 WBC 4.55 L (4.8-10.8) K/uL Hgb 13.7 (12.0-16.0) g/dL Hct 41.5 (37-47) % Plt Count 210 (130-400) K/uL BMP 07/20/21 05:58 Sodium 141 Potassium 3.5 Chloride 108 H Carbon Dioxide 26 BUN 21 H Creatinine 0.37 L Glucose 117 H Calcium 9.1 Medications Administered Current Inpatient Medications Acetaminophen (Acetaminophen 325 Mg Tab) 650 mg PO Q4H PRN PRN Reason: Pain or Fever Stop: 08/14/21 15:25 Last Admin: 07/17/21 06:28 Dose: 650 mg Documented by: Ascorbic Acid (Ascorbic Acid 500 Mg Tab) 500 mg PO BID COREY Stop: 08/14/21 20:59 Last Admin: 07/20/21 08:05 Dose: 500 mg Documented by: Celecoxib (Celebrex 200 Mg Cap) 200 mg PO BID COREY Stop: 08/14/21 20:59 Last Admin: 07/20/21 08:05 Dose: 200 mg Documented by: Dextrose (Dextrose 50% 50 Ml Syringe) 25 - 50 ml IV UD PRN; Protocol PRN Reason: Hypoglycemia Protocol Stop: 08/14/21 15:25 Enoxaparin Sodium (Enoxaparin Inj 40 Mg/0.4 Ml Syr) 40 mg SQ Q12H [facility] Stop: 08/14/21 17:59 Last Admin: 07/20/21 05:16 Dose: 40 mg Documented by: Fluoxetine HCl (Fluoxetine Hcl 20 Mg Cap) 20 mg PO DAILY C[facility] Stop: 08/15/21 08:59 Last Admin: 07/20/21 08:06 Dose: 20 mg Documented by: Folic Acid (Folic Acid 1 Mg Tab) 1 mg PO DAILY C[facility] Stop: 08/15/21 08:59 Last Admin: 07/20/21 08:07 Dose: 1 mg Documented by: Gabapentin (Gabapentin 300 Mg Cap) 300 mg PO HS C[facility] Stop: 08/14/21 20:59 Last Admin: 07/19/21 20:13 Dose: 300 mg Documented by: Glucagon (Glucagon For Inj 1 Mg Vial) 1 mg SQ UD PRN; Protocol PRN Reason: Hypoglycemia Protocol Stop: 08/14/21 15:25 Glucose (Glucose 10 Tabs/Tube) 4 - 8 tabs PO UD PRN; Protocol PRN Reason: Hypoglycemia Protocol Stop: 08/14/21 15:25 Glucose (Glucose 40% Gel 15 Gm Tube) 15 - 30 gm PO UD PRN; Protocol PRN Reason: Hypoglycemia Protocol Stop: 08/14/21 15:25 Guaifenesin (Guaifenesin 600 Mg Tabcr) 600 mg PO Q12 [facility] Stop: 08/17/21 20:59 Last Admin: 07/20/21 08:06 Dose: 600 mg Documented by: Ceftriaxone Sodium 2,000 mg/ (Dextrose) 50 mls @ 100 mls/hr IV Q24H [facility]; Protocol Stop: 07/25/21 13:29 Last Infusion: 07/19/21 13:34 Dose: Infused Documented by: Furosemide 20 mg/ Syringe 2 mls @ 4 mls/min IV DAILY [facility] Stop: 08/16/21 08:59 Dexamethasone 10 mg/ Syringe 2.5 mls @ 1 mls/min IV Q24H [facility] Stop: 08/18/21 08:59 Last Admin: 07/20/21 08:04 Dose: 1 mls/min Documented by: Insulin Aspart (Insulin Aspart 100 Units/Ml 3 Ml Pen) 0 units SC ACHS [facility] Stop: 08/14/21 16:29 Last Admin: 07/20/21 09:11 Dose: Not Given Documented by: Insulin Glargine (Insulin Glargine Solostar 100 Units/Ml 3 Ml Pen) 10 units SC BID [facility] Stop: 08/15/21 20:59 Last Admin: 07/20/21 09:10 Dose: 10 units Documented by: Miscellaneous (Carbohydrates For Hypoglycemia ) 15 - 30 gm PO UD PRN PRN Reason: Hypoglycemia Protocol Stop: 08/14/21 15:25 Ondansetron HCl (Ondansetron Inj 2 Mg/Ml 2 Ml Vial) 4 mg IV Q6H PRN PRN Reason: Nausea Stop: 08/14/21 15:25 Pantoprazole Sodium (Pantoprazole 40 Mg Tab) 40 mg PO BID [facility] Stop: 08/17/21 20:59 Last Admin: 07/20/21 08:06 Dose: 40 mg Documented by: Sodium Chloride (Sodium Chloride 0.9% 10ml Flush) 30 ml IV Q24H [facility] Stop: 07/20/21 13:01 Last Admin: 07/19/21 15:32 Dose: 30 ml Documented by: Trazodone HCl (Trazodone Hcl 100 Mg Tab) 100 mg PO HS PRN PRN Reason: insomnia Stop: 08/14/21 20:59 Last Admin: 07/19/21 20:14 Dose: 100 mg Documented by: Vitamin D (Cholecalciferol 1,000 Units 25 Mcg Tab) 1,000 units PO [facility] Stop: 08/14/21 15:25 Last Admin: 07/20/21 08:05 Dose: 1,000 units Documented by: Zinc Sulfate (Zinc Sulfate 220 Mg Capsule) 220 mg PO [facility] Stop: 08/14/21 15:25 Last Admin: 07/20/21 08:06 Dose: 220 mg Documented by:
[2021-07-20] MEDS: cefTRIAXone SODIUM 2,000 MG in DEXTROSE 5% 50 ML IV SCH (12:30)
--- NOTE | 2021-07-20 14:15 | Pulmonology Progress Note ---
Date of Service July 20, 2021 Assessment & Plan (1) Pneumonia due to 2019-nCoV: (2) Acute respiratory failure due to COVID-19: (3) Obesity: Plan: Chest x-ray 07/18/2021 personally reviewed: Portable film, bilateral alveolar opacities appreciated diffuse. Bilateral costophrenic and cardiophrenic angles are clean, increased cardiac silhouette --Acute hypoxic respiratory failure Secondary to multilobar COVID-19 pneumonia COVID-19 PCR positive 07/15/2021 CRP 10.7--> 11.2--> 13 --> 9.96 --> 8.19 Procalcitonin negative Continue with O2 supplementation to keep oxygen saturation between 90-92%. Awake proning will be helpful Continue with incentive spirometry Continue with flutter valve. Recommend patient to be kept euvolemic to negative balance --History of lupus On methotrexate and hydroxychloroquine --Pancytopenia Likely secondary from methotrexate --Obesity with probable GRETCHEN/OHS CPAP While in the hospital Outpatient polysomnography Plan: In/out: -1700, urine output 2900 Patient's creatinine is still good, would continue with IV diuretics. Patient did use CPAP overnight. And she tolerated it well. Would continue with CPAP can increase it to maybe 9-10 cmH2O Continue with awake proning. Please note the above document was generated using voice recognition software. It may contain grammatical, syntax or spelling errors.Any formal questions or concerns about the content, text or information contained within the body of this dictation should be directly addressed to the provider for clarification. Admission and Anticipated Discharge Date Admission Date: July 15, 2021 Subjective Patient seen and examined at bedside. No acute distress, no adverse events overnight. Patient was on 30 L 80% Saturating 93%. I went down to 70% Patient was still maintaining saturation of 91%. Denies any chest pain. Overall she says she feels the same. No significant improvement compared to yesterday Did use CPAP overnight and felt that it did help. No chest pain, has been using incentive spirometer as well as flutter valve. Review of Systems Review of Systems: All systems reviewed & are unremarkable except as noted in Subjective Physical Exam Physical Exam: Constitutional: No acute distress HEENT: EOMI, PERRLA Respiratory system: Decreased air entry bilaterally, no wheeze, no rhonchi, positive crackles bilateral lower lobes CVS: S1-S2 positive, no murmurs or gallops Abdomen: Soft, nontender, nondistended, positive bowel sounds x4, obese Extremities: +2 pulses bilaterally radialis/ dorsalis pedis, no cyanosis, no edema Neuro: Awake alert oriented x3 Psych: Normal mood and affect G/U: No Sparks Skin: no rashes, warm and dry Lymphatic: no cervical or axillary lymphadenopathy Results & Data Results & Data ([facility]) Vital Signs (Past 12 Hours) Vital Signs Temp Pulse Pulse Resp BP BP Pulse Ox 07/20/21 12:16 36.8 C 74 20 109/67 92 07/20/21 11:54 75 24 92 07/20/21 08:00 85 07/20/21 07:35 38.0 C H 92 H 20 120/70 94 07/20/21 07:13 93 H 22 92 07/20/21 05:27 89 24 92 07/20/21 03:38 37.1 C 84 20 115/50 L 96 07/20/21 03:25 78 22 96 07/20/21 05:58 07/20/21 05:58 PG Care Time/CCT Total # of Minutes Spent Total Time Spent with Patient: Total time spent is greater than 50% in coordination of care (as documented) at patient's floor/unit and/or counseling patient: Coding Level of Care Code 17498 Subseq Hosp Care Lvl 3 Diagnoses Pneumonia due to 2019-nCoV U07.1; J12.82 Acute respiratory failure due to COVID-19 U07.1; J96.00 Obesity E66.9
[2021-07-20] MEDS: SODIUM CHLORIDE 0.9% 10ML FLUSH IV SCH (15:34)
[2021-07-20] MEDS: GABAPENTIN 300 MG CAP PO SCH (20:20)
[2021-07-20] MEDS: traZODone HCL 100 MG TAB PO PRN (20:21)
[2021-07-21] MEDS: ENOXAPARIN INJ 40 MG/0.4 ML SYR SQ SCH ×2 (06:31→18:04)
[2021-07-21 07:41] LABS: Hemoglobin 13.8 g/dL (12.0-16.0); Mean Corpuscular Hemoglobin 28.1 pg (25-34); Mean Corpuscular Hgb Conc 32.9 g/dL (32-36); Mean Corpuscular Volume 85.5 fL (80-100); Mean Platelet Volume 9.3 fL (7.4-10.4); Platelet Count 185 K/uL (130-400); RDW Coefficient of Variation 14.7 % (11.5-14.5); RDW Standard Deviation 45.7 fL (36.4-46.3); Red Blood Count 4.91 M/uL (4.2-5.4)
[2021-07-21 08:18] LABS: BUN Creatinine Ratio 46.8 (10-20); Creatinine Clr Calc Pharmacy 197.7 ml/min; Est GFR (African American) 142.5 ml/min; Est GFR (Non-African American) 122.9 ml/min
--- NOTE | 2021-07-21 08:21 | XRay Report ---
SINGLE VIEW CHEST CLINICAL HISTORY: Covid pneumonia. FINDINGS: An AP, portable, upright chest radiograph is compared to study dated 07/19/2021. No definite pneumomediastinum is identified. The cardiomediastinal silhouette is unremarkable. Multifocal airspac e consolidation is again seen throughout both lungs. No large pleural effusion or pneumothorax is nubia ntified. The bony thorax is grossly intact. IMPRESSION: Multiple focal airspace consolidation has not significantly changed as compared to 07/19/20. ACT 112: Negative or not required by law. Electronically signed by: Ankit Woodall M.D. 07/21/2021 8:19 AM
--- NOTE | 2021-07-21 08:32 | Pulmonology Progress Note ---
Date of Service July 21, 2021 Assessment & Plan (1) Pneumonia due to 2019-nCoV: (2) Acute respiratory failure due to COVID-19: (3) Obesity: Plan: Chest x-ray 07/18/2021 personally reviewed: Portable film, bilateral alveolar opacities appreciated diffuse. Bilateral costophrenic and cardiophrenic angles are clean, increased cardiac silhouette --Acute hypoxic respiratory failure Secondary to multilobar COVID-19 pneumonia COVID-19 PCR positive 07/15/2021 CRP 10.7--> 11.2--> 13 --> 9.96 --> 8.19 --> 12 Procalcitonin negative Continue with O2 supplementation to keep oxygen saturation between 90-92%. Awake proning will be helpful Continue with incentive spirometry Continue with flutter valve. Recommend patient to be kept euvolemic to negative balance --History of lupus On methotrexate and hydroxychloroquine --Obesity with probable GRETCHEN/OHS CPAP While in the hospital Outpatient polysomnography Plan: In/out: -509 urine output 1250 CRP trending up again. Patient is already on 10 mg of dexamethasone. Would continue with the same dose I will repeat CRP again tomorrow if it is still trending up and may be will give 1 dose of 20 mg 40 mg of Lasix given today Patient did use CPAP overnight. And she tolerated it well. Would continue with CPAP can increase it to maybe 9-10 cmH2O Continue with awake proning. Please note the above document was generated using voice recognition software. It may contain grammatical, syntax or spelling errors.Any formal questions or concerns about the content, text or information contained within the body of this dictation should be directly addressed to the provider for clarification. Admission and Anticipated Discharge Date Admission Date: July 15, 2021 Subjective Patient seen and examined at bedside. No acute distress. She was saturating 93% on 85% FiO2, 40 L I went down to 80% he was still in the 90s Fair appetite. Patient personally think that she is doing better than the last couple of days. She is making good amount of urine Fair appetite. Has been using incentive spirometry. Did use the CPAP last night Review of Systems Review of Systems: All systems reviewed & are unremarkable except as noted in Subjective Physical Exam Physical Exam: Constitutional: No acute distress HEENT: EOMI, PERRLA Respiratory system: Decreased air entry bilaterally, no wheeze, no rhonchi, positive crackles bilateral lower lobes CVS: S1-S2 positive, no murmurs or gallops Abdomen: Soft, nontender, nondistended, positive bowel sounds x4, obese Extremities: +2 pulses bilaterally radialis/ dorsalis pedis, no cyanosis, no edema Neuro: Awake alert oriented x3 Psych: Normal mood and affect G/U: No Sparks Skin: no rashes, warm and dry Lymphatic: no cervical or axillary lymphadenopathy Results & Data Results & Data ([facility]) Vital Signs (Past 12 Hours) Vital Signs Temp Pulse Pulse Resp BP BP Pulse Ox 07/21/21 07:28 36.8 C 74 20 102/58 L 90 07/21/21 07:12 86 24 94 07/21/21 03:40 70 32 H 92 07/21/21 03:30 36.6 C 74 22 108/60 96 07/21/21 01:54 81 07/20/21 23:46 36.6 C 72 22 114/70 96 07/20/21 22:20 70 18 93 07/21/21 06:54 07/21/21 06:54 PG Care Time/CCT Total # of Minutes Spent Total Time Spent with Patient: Total time spent is greater than 50% in coordination of care (as documented) at patient's floor/unit and/or counseling patient: Coding Level of Care Code 35177 Subseq Hosp Care Lvl 3 Diagnoses Pneumonia due to 2019-nCoV U07.1; J12.82 Acute respiratory failure due to COVID-19 U07.1; J96.00 Obesity E66.9
[2021-07-21] MEDS: FUROSEMIDE 40 MG in SYRINGE 0 ML IV SCH (08:37)
[2021-07-21] MEDS: dexAMETHasone 10 MG in SYRINGE 0 ML IV SCH (08:38)
[2021-07-21] MEDS: guaiFENesin 600 MG TABCR PO SCH ×2 (08:41→20:47)
[2021-07-21] MEDS: CeleBREX 200 MG CAP PO SCH ×2 (08:41→20:46)
[2021-07-21] MEDS: ASCORBIC ACID 500 MG TAB PO SCH ×2 (08:41→20:45)
[2021-07-21] MEDS: ZINC SULFATE 220 MG CAPSULE PO SCH (08:42)
[2021-07-21] MEDS: FLUoxetine HCL 20 MG CAP PO SCH (08:42)
[2021-07-21] MEDS: PANTOprazole 40 MG TAB PO SCH ×2 (08:42→20:46)
[2021-07-21] MEDS: FOLIC ACID 1 MG TAB PO SCH (08:42)
[2021-07-21] MEDS: CHOLECALCIFEROL 1,000 UNITS 25 MCG TAB PO SCH (08:42)
[2021-07-21] MEDS: INSULIN GLARGINE SOLOSTAR 100 UNITS/ML 3 ML PEN SC SCH ×2 (08:49→20:50)
[2021-07-21] MEDS: INSULIN ASPART 100 UNITS/ML 3 ML PEN SC SCH ×4 (08:50→20:50)
[2021-07-21 09:24] LABS: Potassium 3.6 mmol/L (3.5-5.1)
[2021-07-21 09:25] LABS: Magnesium 2.1 mg/dl (1.8-2.4)
[2021-07-21] MEDS: cefTRIAXone SODIUM 2,000 MG in DEXTROSE 5% 50 ML IV SCH (13:29)
[2021-07-21 18:14] LABS: Appearance Urine Clear (Clear); Bilirubin Urine Negative (Negative); Blood Urine Negative (Negative); Color Urine Yellow; Glucose Urine UA 3+ (Negative); Ketones Urine 1+ (Negative); Leukocyte Esterase Urine Negative (Negative); Nitrite Urine Negative (Negative); Protein Urine Negative (Negative); Specific Gravity Urine 1.043 (1.000-1.030); Urobilinogen Urine Negative (Negative); pH Urine 6.5 (4.5-7.5)
[2021-07-21] MEDS: GABAPENTIN 300 MG CAP PO SCH (20:45)
[2021-07-22] MEDS: ENOXAPARIN INJ 40 MG/0.4 ML SYR SQ SCH ×2 (06:30→17:50)
[2021-07-22 06:35] LABS: Basophils # (auto) 0.02 K/uL (0-0.2); Basophils % (auto) 0.3 %; Eosinophils # (auto) 0.03 K/uL (0-0.5); Eosinophils % (auto) 0.5 %; Hematocrit (blood only) 41.7 % (37-47); Hemoglobin 13.5 g/dL (12.0-16.0); Immature Granulocytes # (auto) 0.03 K/uL (0.00-0.02); Immature Granulocytes % (auto) 0.5 %; Lymphocytes # (auto) 0.84 K/uL (1.2-3.4); Lymphocytes % (auto) 14.4 %; Mean Corpuscular Hgb Conc 32.4 g/dL (32-36); Mean Corpuscular Volume 86.3 fL (80-100); Mean Platelet Volume 9.3 fL (7.4-10.4); Monocytes # (auto) 0.16 K/uL (0.11-0.59); Monocytes % (auto) 2.7 %; Neutrophils # (auto) 4.77 K/uL (1.4-6.5); Neutrophils % (auto) 81.6 %; Platelet Count 169 K/uL (130-400); RDW Coefficient of Variation 14.6 % (11.5-14.5); RDW Standard Deviation 46.2 fL (36.4-46.3); Red Blood Count 4.83 M/uL (4.2-5.4); White Blood Count 5.85 K/uL (4.8-10.8)
[2021-07-22 07:05] LABS: Albumin Level 2.5 gm/dl (3.4-5.0); BUN Creatinine Ratio 58.5 (10-20); Calcium 8.7 mg/dl (8.5-10.1); Creatinine Clr Calc Pharmacy 195.2 ml/min; Est GFR (African American) 142.5 ml/min; Est GFR (Non-African American) 122.9 ml/min; Magnesium 2.1 mg/dl (1.8-2.4); Potassium 3.6 mmol/L (3.5-5.1)
[2021-07-22 07:08] LABS: Albumin Globulin Ratio 0.7 (0.9-2); Bilirubin,Total 0.5 mg/dl (0.2-1); C Reactive Protein 11.3 mg/dl (0-0.29); Globulin 3.8 gm/dl (2.5-4.0); Phosphorus 3.3 mg/dl (2.5-4.9); Total Protein 6.3 gm/dl (6.4-8.2)
[2021-07-22] MEDS ORDERED: FUROSEMIDE 40 MG in SYRINGE 0 ML IV ONE (08:01)
--- NOTE | 2021-07-22 08:03 | Pulmonology Progress Note ---
Date of Service July 22, 2021 Assessment & Plan (1) Pneumonia due to 2019-nCoV: (2) Acute respiratory failure due to COVID-19: (3) Obesity: Plan: Chest x-ray 07/18/2021 personally reviewed: Portable film, bilateral alveolar opacities appreciated diffuse. Bilateral costophrenic and cardiophrenic angles are clean, increased cardiac silhouette --Acute hypoxic respiratory failure Secondary to multilobar COVID-19 pneumonia COVID-19 PCR positive 07/15/2021 CRP 10.7--> 11.2--> 13 --> 9.96 --> 8.19 --> 12 --> 11.3 Procalcitonin negative Continue with O2 supplementation to keep oxygen saturation between 90-92%. Awake proning will be helpful Continue with incentive spirometry Continue with flutter valve. Recommend patient to be kept euvolemic to negative balance --History of lupus On methotrexate and hydroxychloroquine --Obesity with probable GRETCHEN/OHS CPAP While in the hospital Outpatient polysomnography Plan: In/out: Positive 435, urine output 1800 CRP today 11.3 The patient is not negative balance by evening would recommend giving another 20 mg of Lasix Patient did use CPAP overnight. And she tolerated it well. Would continue with CPAP can increase it to maybe 10 cmH2O Continue with awake proning. Please note the above document was generated using voice recognition software. It may contain grammatical, syntax or spelling errors.Any formal questions or concerns about the content, text or information contained within the body of thi s dictation should be directly addressed to the provider for clarification. Admission and Anticipated Discharge Date Admission Date: July 15, 2021 Subjective Patient seen and examined at bedside. No acute distress, no adverse events overnight. Patient states she is feeling better compared to couple of days ago. She has been urinating well. She was self proning at the time of examination on high flow 80%, 40 L saturating 94-95% I went down to 60% and she was still saturating 92%. Denies any nausea or vomiting. Good appetite. Has been using CPAP at night. Review of Systems Review of Systems: All systems reviewed & are unremarkable except as noted in Subjective Physical Exam Physical Exam: Constitutional: No acute distress HEENT: EOMI, PERRLA Respiratory system: Decreased air entry bilaterally, no wheeze, no rhonchi, positive crackles bilateral lower lobes CVS: S1-S2 positive, no murmurs or gallops Abdomen: Soft, nontender, nondistended, positive bowel sounds x4, obese Extremities: +2 pulses bilaterally radialis/ dorsalis pedis, no cyanosis, no edema Neuro: Awake alert oriented x3 Psych: Normal mood and affect G/U: No Sparks Skin: no rashes, warm and dry Lymphatic: no cervical or axillary lymphadenopathy Results & Data Results & Data ([facility]) Vital Signs (Past 12 Hours) Vital Signs Temp Pulse Pulse Resp BP Pulse Ox 07/22/21 07:52 77 21 90 07/22/21 07:42 75 17 90 07/22/21 07:29 36.7 C 74 20 126/73 91 07/22/21 07:00 61 07/22/21 03:36 36.8 C 64 19 108/62 92 07/22/21 02:09 60 22 92 07/21/21 23:33 36.7 C 61 16 120/69 94 07/21/21 22:42 63 16 93 07/21/21 22:20 62 07/21/21 20:04 72 22 90 07/22/21 05:48 07/22/21 05:48 PG Care Time/CCT Total # of Minutes Spent Total Time Spent with Patient: Total time spent is greater than 50% in coordination of care (as documented) at patient's floor/unit and/or counseling patient: Coding Level of Care Code 34486 Subseq Hosp Care Lvl 3 Diagnoses Pneumonia due to 2019-nCoV U07.1; J12.82 Acute respiratory failure due to COVID-19 U07.1; J96.00 Obesity E66.9
[2021-07-22] MEDS: guaiFENesin 600 MG TABCR PO SCH ×2 (08:23→21:06)
[2021-07-22] MEDS: dexAMETHasone 10 MG in SYRINGE 0 ML IV SCH (08:23)
[2021-07-22] MEDS: CeleBREX 200 MG CAP PO SCH ×2 (08:23→21:09)
[2021-07-22] MEDS: FUROSEMIDE 40 MG in SYRINGE 0 ML IV SCH (08:23)
[2021-07-22] MEDS: PANTOprazole 40 MG TAB PO SCH ×2 (08:23→21:07)
[2021-07-22] MEDS: FLUoxetine HCL 20 MG CAP PO SCH (08:23)
[2021-07-22] MEDS: CHOLECALCIFEROL 1,000 UNITS 25 MCG TAB PO SCH (08:24)
[2021-07-22] MEDS: ZINC SULFATE 220 MG CAPSULE PO SCH (08:24)
[2021-07-22] MEDS: ASCORBIC ACID 500 MG TAB PO SCH ×2 (08:24→21:00)
[2021-07-22] MEDS: FOLIC ACID 1 MG TAB PO SCH (08:24)
[2021-07-22] MEDS: INSULIN ASPART 100 UNITS/ML 3 ML PEN SC SCH ×4 (08:29→21:10)
[2021-07-22] MEDS: INSULIN GLARGINE SOLOSTAR 100 UNITS/ML 3 ML PEN SC SCH ×2 (08:30→21:10)
[2021-07-22] MEDS: OXYMETAZOLINE 0.05% 30 ML BTL PRN (12:01)
[2021-07-22] MEDS: cefTRIAXone SODIUM 2,000 MG in DEXTROSE 5% 50 ML IV SCH (12:39)
--- NOTE | 2021-07-22 16:25 | Hospitalist Progress Note ---
Date of Service July 21, 2021 Assessment & Plan (1) Acute respiratory failure due to COVID-19: Plan: Doing well on hi flow oxygen/vapotherm for support. asix daily with 1.7L out net overnight. Cont to prone as often as able, which she is doing. Continuous pulse ox monitoring. Pulm following and increased dexamethasone to 10mg IV daily. CRP went up to 12.0 as of 07/21/2021 (2) Sepsis: Plan: Resuscitated, Cont treatment for covid pneumonia and clinical pyelonephritis in this immunosuppressed patient. Has been on ceftriaxone (3) Immunosuppressed status: Plan: Holding MTX, plaquenil at this time. Improved on steorid therapy given from a joint symptom perspective. (4) Pneumonia due to COVID-19 virus: Plan: Cont with daily dexamethasone and remdesivir. Monitor renal function and LFTs. Cont oxygen supplementation as needed. (5) Acute pyelonephritis: Plan: Ceftriaxone started empirically given septic appearance on arrival, leukopenia, flank pain an dysuria, fevers. Urine and blood cultures remain negative. She is clinically improved with a resolution of flank pain and dysuria. Leukopenia on labwork is improved. Fever this am 07/20/2021, cont IV abx for now and plan for a short course of antibiotics to treat a presumed pyelonephritis. (6) Lupus: Plan: Takes MTX, recently took on two days ago and has been on a prednisone taper since Mon beginning at 15mg daily. Malar rash and joint pain resolved. Hold MTX, plaquenil and cont steroid therapy as above. (7) DMII (diabetes mellitus, type 2): Plan: Hold home medications, repeat A1C which was slightly uncontrolled in March 2021 at 7.6. Cont with glargine and novolog with intensification while on steroid therapy. Cont current regimen. (8) Obesity: Plan: Lifestyle recommendations on discharge to ensure efforts to decrease percent body fat and increase lean muscle mass. (9) Insomnia: Plan: Cont trazodone per home regimen. Cut dose by 50% with ongoing hypoxia. (10) DVT prophylaxis: Plan: Lovenox Full Dispo-Cont PCU monitoring. Admission and Anticipated Discharge Date Admission Date: July 15, 2021 Subjective This is the bill for 07/21/2021 The patient was seen and examined in telemetry unit and in the Covid room She has been feeling a little bit better but is still requiring high flow oxygen to maintain saturation Complains today of cough but denies any fever and/or chills Review of Systems Review of Systems: All systems reviewed and are unremarkable except as noted below Physical Exam Physical Exam: Lying in bed with moderate shortness of breath Constitutional: well developed, well nourished, + ill appearing and + obese Eyes: PERRL, conjunctivae normal, anicteric sclerae ENMT: external ear and nose normal, oropharynx normal Neck: trachea midline, no thyromegaly Respiratory: + respiratory distress (Moderate distress at rest) Auscultation: + diminished lung sounds and + crackles (Occasional crackles at the bases) Cardiovascular: Rate/Rhythm: regular rate and regular rhythm; not tachycardic Heart Sounds: normal S1 and normal S2; no murmur Extremities: + edema (Trace edema bilaterally) Gastrointestinal (Abdomen): Inspection/Auscultation: normal bowel sounds; abdomen not distended Percussion/Palpation: abdomen soft; abdomen nontender Musculoskeletal: No acute arthritis in any joint Neurologic: Alert, awake and oriented x3. No focal sensory and motor deficit appreciated Results & Data Results & Data ([facility]) Vital Signs (Past 12 Hours) Vital Signs Temp Pulse Pulse Pulse Resp BP Pulse Ox 07/22/21 15:36 67 07/22/21 15:16 36.9 C 64 20 107/65 92 07/22/21 15:15 64 20 90 07/22/21 13:30 94 07/22/21 11:55 86 L 07/22/21 11:40 36.8 C 67 19 114/50 L 89 L 07/22/21 11:23 67 20 90 07/22/21 10:25 88 L 07/22/21 08:00 07/22/21 07:52 77 21 90 07/22/21 07:42 75 17 90 07/22/21 07:29 36.7 C 74 20 126/73 91 07/22/21 07:00 61 Pulse Ox 07/22/21 15:36 07/22/21 15:16 07/22/21 15:15 07/22/21 13:30 07/22/21 11:55 07/22/21 11:40 07/22/21 11:23 07/22/21 10:25 07/22/21 08:00 92 07/22/21 07:52 07/22/21 07:42 07/22/21 07:29 07/22/21 07:00 Medications Administered Current Inpatient Medications Acetaminophen (Acetaminophen 325 Mg Tab) 650 mg PO Q4H PRN PRN Reason: Pain or Fever Stop: 08/14/21 15:25 Last Admin: 07/17/21 06:28 Dose: 650 mg Documented by: Ascorbic Acid (Ascorbic Acid 500 Mg Tab) 500 mg PO BID [facility] Stop: 08/14/21 20:59 Last Admin: 07/22/21 08:24 Dose: 500 mg Documented by: Celecoxib (Celebrex 200 Mg Cap) 200 mg PO BID [facility] Stop: 08/14/21 20:59 Last Admin: 07/22/21 08:23 Dose: 200 mg Documented by: Dextrose (Dextrose 50% 50 Ml Syringe) 25 - 50 ml IV UD PRN; Protocol PRN Reason: Hypoglycemia Protocol Stop: 08/14/21 15:25 Enoxaparin Sodium (Enoxaparin Inj 40 Mg/0.4 Ml Syr) 40 mg SQ Q12H [facility] Stop: 08/14/21 17:59 Last Admin: 07/22/21 06:30 Dose: 40 mg Documented by: Fluoxetine HCl (Fluoxetine Hcl 20 Mg Cap) 20 mg PO DAILY [facility] Stop: 08/15/21 08:59 Last Admin: 07/22/21 08:23 Dose: 20 mg Documented by: Folic Acid (Folic Acid 1 Mg Tab) 1 mg PO DAILY [facility] Stop: 08/15/21 08:59 Last Admin: 07/22/21 08:24 Dose: 1 mg Documented by: Gabapentin (Gabapentin 300 Mg Cap) 300 mg PO HS [facility] Stop: 08/14/21 20:59 Last Admin: 07/21/21 20:45 Dose: 300 mg Documented by: Glucagon (Glucagon For Inj 1 Mg Vial) 1 mg SQ UD PRN; Protocol PRN Reason: Hypoglycemia Protocol Stop: 08/14/21 15:25 Glucose (Glucose 10 Tabs/Tube) 4 - 8 tabs PO UD PRN; Protocol PRN Reason: Hypoglycemia Protocol Stop: 08/14/21 15:25 Glucose (Glucose 40% Gel 15 Gm Tube) 15 - 30 gm PO UD PRN; Protocol PRN Reason: Hypoglycemia Protocol Stop: 08/14/21 15:25 Guaifenesin (Guaifenesin 600 Mg Tabcr) 600 mg PO Q12 [facility] Stop: 08/17/21 20:59 Last Admin: 07/22/21 08:23 Dose: 600 mg Documented by: Ceftriaxone Sodium 2,000 mg/ (Dextrose) 50 mls @ 100 mls/hr IV Q24H [facility]; Protocol Stop: 07/25/21 13:29 Last Infusion: 07/22/21 13:22 Dose: Infused Documented by: Dexamethasone 10 mg/ Syringe 2.5 mls @ 1 mls/min IV Q24H [facility] Stop: 08/18/21 08:59 Last Admin: 07/22/21 08:23 Dose: 1 mls/min Documented by: Furosemide 40 mg/ Syringe 4 mls @ 4 mls/min IV Q24H [facility] Stop: 08/20/21 07:29 Last Admin: 07/22/21 08:23 Dose: 4 mls/min Documented by: Insulin Aspart (Insulin Aspart 100 Units/Ml 3 Ml Pen) 0 units SC ACHS [facility] Stop: 08/14/21 16:29 Last Admin: 07/22/21 12:38 Dose: 7 units Documented by: Insulin Glargine (Insulin Glargine Solostar 100 Units/Ml 3 Ml Pen) 10 units SC BID [facility] Stop: 08/15/21 20:59 Last Admin: 07/22/21 08:30 Dose: 10 units Documented by: Miscellaneous (Carbohydrates For Hypoglycemia ) 15 - 30 gm PO UD PRN PRN Reason: Hypoglycemia Protocol Stop: 08/14/21 15:25 Ondansetron HCl (Ondansetron Inj 2 Mg/Ml 2 Ml Vial) 4 mg IV Q6H PRN PRN Reason: Nausea Stop: 08/14/21 15:25 Oxymetazoline HCl (Oxymetazoline 0.05% 30 Ml Btl) 1 sprays NA Q12H PRN PRN Reason: Congestion Stop: 08/21/21 11:07 Last Admin: 07/22/21 12:01 Dose: 1 sprays Documented by: Pantoprazole Sodium (Pantoprazole 40 Mg Tab) 40 mg PO BID [facility] Stop: 08/17/21 20:59 Last Admin: 07/22/21 08:23 Dose: 40 mg Documented by: Trazodone HCl (Trazodone Hcl 100 Mg Tab) 100 mg PO HS PRN PRN Reason: insomnia Stop: 08/14/21 20:59 Last Admin: 07/20/21 20:21 Dose: 100 mg Documented by: Vitamin D (Cholecalciferol 1,000 Units 25 Mcg Tab) 1,000 units PO [facility] Stop: 08/14/21 15:25 Last Admin: 07/22/21 08:24 Dose: 1,000 units Documented by: Zinc Sulfate (Zinc Sulfate 220 Mg Capsule) 220 mg PO [facility] Stop: 08/14/21 15:25 Last Admin: 07/22/21 08:24 Dose: 220 mg Documented by:
--- NOTE | 2021-07-22 16:36 | Hospitalist Progress Note ---
Date of Service July 22, 2021 Assessment & Plan (1) Acute respiratory failure due to COVID-19: Plan: Doing well on hi flow oxygen/vapotherm for support. asix daily with 1.7L out net overnight. Cont to prone as often as able, which she is doing. Continuous pulse ox monitoring. Pulm following and increased dexamethasone to 10mg IV daily. CRP went up to 12.0 as of 07/21/2021 CRP minimally improved at 11.30-we will recheck tomorrow (2) Sepsis: Plan: Resuscitated, Cont treatment for covid pneumonia and clinical pyelonephritis in this immunosuppressed patient. Has been on ceftriaxone No fever and/or chills and white counts remains minimally elevated and is complicated by use of dexamethasone (3) Immunosuppressed status: Plan: Holding MTX, plaquenil at this time. Improved on steorid therapy given from a joint symptom perspective. (4) Pneumonia due to COVID-19 virus: Plan: Cont with daily dexamethasone and remdesivir. Monitor renal function and LFTs. Cont oxygen supplementation as needed. Repeat chest x-ray on 07/21/2021 did not show any improvement (5) Acute pyelonephritis: Plan: Ceftriaxone started empirically given septic appearance on arrival, leukopenia, flank pain an dysuria, fevers. Urine and blood cultures remain negative. She is clinically improved with a resolution of flank pain and dysuria. Leukopenia on labwork is improved. Fever this am 07/20/2021, cont IV abx for now and plan for a short course of antibiotics to treat a presumed pyelonephritis. (6) Lupus: Plan: Takes MTX, recently took on two days ago and has been on a prednisone taper since Mon beginning at 15mg daily. Malar rash and joint pain resolved. Hold MTX, plaquenil and cont steroid therapy as above. (7) DMII (diabetes mellitus, type 2): Plan: Hold home medications, repeat A1C which was slightly uncontrolled in March 2021 at 7.6. Cont with glargine and novolog with intensification while on steroid therapy. Cont current regimen. (8) Obesity: Plan: Lifestyle recommendations on discharge to ensure efforts to decrease percent body fat and increase lean muscle mass. (9) Insomnia: Plan: Cont trazodone per home regimen. Cut dose by 50% with ongoing hypoxia. (10) DVT prophylaxis: Plan: Lovenox Full Dispo-Cont PCU monitoring. Admission and Anticipated Discharge Date Admission Date: July 15, 2021 Subjective This is the bill for 07/21/2021 The patient was seen and examined in telemetry unit and in the Covid room She has been feeling a little bit better but is still requiring high flow oxygen to maintain saturation Complains today of cough but denies any fever and/or chills 07/22/2021 The patient was seen and examined in telemetry unit and in the Covid room She has been feeling better but requiring high flow oxygen to maintain saturation Minimal shortness of breath at rest Denies any other symptoms Review of Systems Review of Systems: All systems reviewed and are unremarkable except as noted below Respiratory: Mild to moderate shortness of breath at rest Physical Exam Physical Exam: Sitting on a chair with moderate shortness of breath Constitutional: well developed, well nourished, + ill appearing and + obese Eyes: PERRL, conjunctivae normal, anicteric sclerae ENMT: external ear and nose normal, oropharynx normal Neck: trachea midline, no thyromegaly Respiratory: + respiratory distress (Moderate distress at rest) Auscultation: + diminished lung sounds and + crackles (Occasional crackles at the bases) Cardiovascular: Rate/Rhythm: regular rate and regular rhythm; not tachycardic Heart Sounds: normal S1 and normal S2; no murmur Extremities: + edema (Trace edema bilaterally) Gastrointestinal (Abdomen): Inspection/Auscultation: normal bowel sounds; abdomen not distended Percussion/Palpation: abdomen soft; abdomen nontender Musculoskeletal: No acute arthritis in any joint Neurologic: CN's II-XI intact bilaterally Psychiatric: A+Ox3, euthymic affect Lymphatic: no cervical or axillary lymphadenopathy Results & Data Results & Data ([facility]) Vital Signs (Past 12 Hours) Vital Signs Temp Pulse Pulse Pulse Resp BP Pulse Ox 07/22/21 15:36 67 07/22/21 15:16 36.9 C 64 20 107/65 92 07/22/21 15:15 64 20 90 07/22/21 13:30 94 07/22/21 11:55 86 L 07/22/21 11:40 36.8 C 67 19 114/50 L 89 L 07/22/21 11:23 67 20 90 07/22/21 10:25 88 L 07/22/21 08:00 07/22/21 07:52 77 21 90 07/22/21 07:42 75 17 90 07/22/21 07:29 36.7 C 74 20 126/73 91 07/22/21 07:00 61 Pulse Ox 07/22/21 15:36 07/22/21 15:16 07/22/21 15:15 07/22/21 13:30 07/22/21 11:55 07/22/21 11:40 07/22/21 11:23 07/22/21 10:25 07/22/21 08:00 92 07/22/21 07:52 07/22/21 07:42 07/22/21 07:29 07/22/21 07:00 Laboratory Results Short CBC 07/22/21 Range/Units 05:48 WBC 5.85 (4.8-10.8) K/uL Hgb 13.5 (12.0-16.0) g/dL Hct 41.7 (37-47) % Plt Count 169 (130-400) K/uL BMP 07/22/21 05:48 Sodium 141 Potassium 3.6 Chloride 106 Carbon Dioxide 29 BUN 25 H Creatinine 0.42 L Glucose 112 H Calcium 8.7 Liver Function 07/22/21 Range/Units 05:48 Total Bilirubin 0.5 (0.2-1) mg/dl AST 29 (15-37) U/L ALT 19 (12-78) U/L Alkaline Phosphatase 78 (45-117) U/L Albumin 2.5 L (3.4-5.0) gm/dl Urine 07/21/21 Range/Units Unknown Urine Color Yellow Urine Appearance Clear (Clear) Urine pH 6.5 (4.5-7.5) Ur Specific [place] 1.043 H (1.000-1.030) Urine Protein Negative (Negative) Urine Glucose (UA) 3+ H (Negative) Medications Administered Current Inpatient Medications Acetaminophen (Acetaminophen 325 Mg Tab) 650 mg PO Q4H PRN PRN Reason: Pain or Fever Stop: 08/14/21 15:25 Last Admin: 07/17/21 06:28 Dose: 650 mg Documented by: Ascorbic Acid (Ascorbic Acid 500 Mg Tab) 500 mg PO BID [facility] Stop: 08/14/21 20:59 Last Admin: 07/22/21 08:24 Dose: 500 mg Documented by: Celecoxib (Celebrex 200 Mg Cap) 200 mg PO BID [facility] Stop: 08/14/21 20:59 Last Admin: 07/22/21 08:23 Dose: 200 mg Documented by: Dextrose (Dextrose 50% 50 Ml Syringe) 25 - 50 ml IV UD PRN; Protocol PRN Reason: Hypoglycemia Protocol Stop: 08/14/21 15:25 Enoxaparin Sodium (Enoxaparin Inj 40 Mg/0.4 Ml Syr) 40 mg SQ Q12H [facility] Stop: 08/14/21 17:59 Last Admin: 07/22/21 06:30 Dose: 40 mg Documented by: Fluoxetine HCl (Fluoxetine Hcl 20 Mg Cap) 20 mg PO DAILY [facility] Stop: 08/15/21 08:59 Last Admin: 07/22/21 08:23 Dose: 20 mg Documented by: Folic Acid (Folic Acid 1 Mg Tab) 1 mg PO DAILY [facility] Stop: 08/15/21 08:59 Last Admin: 07/22/21 08:24 Dose: 1 mg Documented by: Gabapentin (Gabapentin 300 Mg Cap) 300 mg PO HS [facility] Stop: 08/14/21 20:59 Last Admin: 07/21/21 20:45 Dose: 300 mg Documented by: Glucagon (Glucagon For Inj 1 Mg Vial) 1 mg SQ UD PRN; Protocol PRN Reason: Hypoglycemia Protocol Stop: 08/14/21 15:25 Glucose (Glucose 10 Tabs/Tube) 4 - 8 tabs PO UD PRN; Protocol PRN Reason: Hypoglycemia Protocol Stop: 08/14/21 15:25 Glucose (Glucose 40% Gel 15 Gm Tube) 15 - 30 gm PO UD PRN; Protocol PRN Reason: Hypoglycemia Protocol Stop: 08/14/21 15:25 Guaifenesin (Guaifenesin 600 Mg Tabcr) 600 mg PO Q12 [facility] Stop: 08/17/21 20:59 Last Admin: 07/22/21 08:23 Dose: 600 mg Documented by: Ceftriaxone Sodium 2,000 mg/ (Dextrose) 50 mls @ 100 mls/hr IV Q24H [facility]; Protocol Stop: 07/25/21 13:29 Last Infusion: 07/22/21 13:22 Dose: Infused Documented by: Dexamethasone 10 mg/ Syringe 2.5 mls @ 1 mls/min IV Q24H [facility] Stop: 08/18/21 08:59 Last Admin: 07/22/21 08:23 Dose: 1 mls/min Documented by: Furosemide 40 mg/ Syringe 4 mls @ 4 mls/min IV Q24H [facility] Stop: 08/20/21 07:29 Last Admin: 07/22/21 08:23 Dose: 4 mls/min Documented by: Insulin Aspart (Insulin Aspart 100 Units/Ml 3 Ml Pen) 0 units SC ACHS [facility] Stop: 08/14/21 16:29 Last Admin: 07/22/21 12:38 Dose: 7 units Documented by: Insulin Glargine (Insulin Glargine Solostar 100 Units/Ml 3 Ml Pen) 10 units SC BID [facility] Stop: 08/15/21 20:59 Last Admin: 07/22/21 08:30 Dose: 10 units Documented by: Miscellaneous (Carbohydrates For Hypoglycemia ) 15 - 30 gm PO UD PRN PRN Reason: Hypoglycemia Protocol Stop: 08/14/21 15:25 Ondansetron HCl (Ondansetron Inj 2 Mg/Ml 2 Ml Vial) 4 mg IV Q6H PRN PRN Reason: Nausea Stop: 08/14/21 15:25 Oxymetazoline HCl (Oxymetazoline 0.05% 30 Ml Btl) 1 sprays NA Q12H PRN PRN Reason: Congestion Stop: 08/21/21 11:07 Last Admin: 07/22/21 12:01 Dose: 1 sprays Documented by: Pantoprazole Sodium (Pantoprazole 40 Mg Tab) 40 mg PO BID [facility] Stop: 08/17/21 20:59 Last Admin: 07/22/21 08:23 Dose: 40 mg Documented by: Trazodone HCl (Trazodone Hcl 100 Mg Tab) 100 mg PO HS PRN PRN Reason: insomnia Stop: 08/14/21 20:59 Last Admin: 07/20/21 20:21 Dose: 100 mg Documented by: Vitamin D (Cholecalciferol 1,000 Units 25 Mcg Tab) 1,000 units PO QAM [facility] Stop: 08/14/21 15:25 Last Admin: 07/22/21 08:24 Dose: 1,000 units Documented by: Zinc Sulfate (Zinc Sulfate 220 Mg Capsule) 220 mg PO QAM [facility] Stop: 08/14/21 15:25 Last Admin: 07/22/21 08:24 Dose: 220 mg Documented by:
[2021-07-22] MEDS: GABAPENTIN 300 MG CAP PO SCH (21:10)
[2021-07-22] MEDS: traZODone HCL 100 MG TAB PO PRN (21:11)
[2021-07-23] MEDS: ENOXAPARIN INJ 40 MG/0.4 ML SYR SQ SCH ×2 (05:39→17:37)
[2021-07-23 06:44] LABS: Basophils # (auto) 0.02 K/uL (0-0.2); Basophils % (auto) 0.3 %; Eosinophils # (auto) 0.09 K/uL (0-0.5); Eosinophils % (auto) 1.4 %; Hematocrit (blood only) 39.1 % (37-47); Hemoglobin 12.8 g/dL (12.0-16.0); Immature Granulocytes # (auto) 0.03 K/uL (0.00-0.02); Immature Granulocytes % (auto) 0.5 %; Lymphocytes % (auto) 16.5 %; Mean Corpuscular Hemoglobin 27.8 pg (25-34); Mean Corpuscular Hgb Conc 32.7 g/dL (32-36); Mean Corpuscular Volume 84.8 fL (80-100); Mean Platelet Volume 9.5 fL (7.4-10.4); Monocytes # (auto) 0.15 K/uL (0.11-0.59); Monocytes % (auto) 2.3 %; Neutrophils # (auto) 5.26 K/uL (1.4-6.5); Platelet Count 156 K/uL (130-400); RDW Coefficient of Variation 14.4 % (11.5-14.5); RDW Standard Deviation 44.8 fL (36.4-46.3); Red Blood Count 4.61 M/uL (4.2-5.4); White Blood Count 6.65 K/uL (4.8-10.8)
[2021-07-23 07:08] LABS: Albumin Level 2.5 gm/dl (3.4-5.0); BUN Creatinine Ratio 59.7 (10-20); Calcium 8.8 mg/dl (8.5-10.1); Creatinine Clr Calc Pharmacy 189.3 ml/min; Est GFR (African American) 140.3 ml/min; Est GFR (Non-African American) 121.1 ml/min; Potassium 3.3 mmol/L (3.5-5.1)
[2021-07-23 07:11] LABS: Albumin Globulin Ratio 0.7 (0.9-2); Bilirubin,Total 0.4 mg/dl (0.2-1); C Reactive Protein 4.69 mg/dl (0-0.29); Globulin 3.8 gm/dl (2.5-4.0); Total Protein 6.3 gm/dl (6.4-8.2)
[2021-07-23] MEDS ORDERED: POTASSIUM CHLORIDE CRTAB 20 MEQ TABCR PO STA (07:41)
[2021-07-23 08:12] LABS: Magnesium 1.9 mg/dl (1.8-2.4); Phosphorus 3.9 mg/dl (2.5-4.9)
[2021-07-23] MEDS: FUROSEMIDE 40 MG in SYRINGE 0 ML IV SCH (08:48)
[2021-07-23] MEDS: dexAMETHasone 10 MG in SYRINGE 0 ML IV SCH (08:48)
[2021-07-23] MEDS: CeleBREX 200 MG CAP PO SCH ×2 (08:49→20:10)
[2021-07-23] MEDS: ASCORBIC ACID 500 MG TAB PO SCH ×2 (08:49→20:11)
[2021-07-23] MEDS: FLUoxetine HCL 20 MG CAP PO SCH (08:49)
[2021-07-23] MEDS: ZINC SULFATE 220 MG CAPSULE PO SCH (08:50)
[2021-07-23] MEDS: guaiFENesin 600 MG TABCR PO SCH ×2 (08:50→20:10)
[2021-07-23] MEDS: CHOLECALCIFEROL 1,000 UNITS 25 MCG TAB PO SCH (08:50)
[2021-07-23] MEDS: PANTOprazole 40 MG TAB PO SCH ×2 (08:50→20:09)
[2021-07-23] MEDS: FOLIC ACID 1 MG TAB PO SCH (08:50)
[2021-07-23] MEDS: INSULIN GLARGINE SOLOSTAR 100 UNITS/ML 3 ML PEN SC SCH ×2 (08:51→20:50)
[2021-07-23] MEDS: INSULIN ASPART 100 UNITS/ML 3 ML PEN SC SCH ×4 (08:52→20:30)
--- NOTE | 2021-07-23 08:52 | Pulmonology Progress Note ---
Date of Service July 23, 2021 Assessment & Plan (1) Pneumonia due to 2019-nCoV: (2) Acute respiratory failure due to COVID-19: (3) Obesity: Plan: Chest x-ray 07/18/2021 personally reviewed: Portable film, bilateral alveolar opacities appreciated diffuse. Bilateral costophrenic and cardiophrenic angles are clean, increased cardiac silhouette --Acute hypoxic respiratory failure Secondary to multilobar COVID-19 pneumonia COVID-19 PCR positive 07/15/2021 CRP 10.7--> 11.2--> 13 --> 9.96 --> 8.19 --> 12 --> 11.3 --> 4.69 Procalcitonin negative Continue with O2 supplementation to keep oxygen saturation between 90-92%. Awake proning will be helpful Continue with incentive spirometry Continue with flutter valve. Recommend patient to be kept euvolemic to negative balance --History of lupus On methotrexate and hydroxychloroquine --Obesity with probable GRETCHEN/OHS CPAP While in the hospital Outpatient polysomnography Plan: In/out: -540, urine output 1450 CRP today 4.69 Follow-up chest x-ray from today Continue with CPAP nightly and as needed shortness of breath Continue with awake proning. Please note the above document was generated using voice recognition software. It may contain grammatical, syntax or spelling errors.Any formal questions or concerns about the content, text or information contained within the body of this dictation should be directly addressed to the provider for clarification. Admission and Anticipated Discharge Date Admission Date: July 15, 2021 Subjective Patient seen and examined at bedside. No acute distress. Patient use CPAP overnight. Patient was on 90%, 40 L saturating 90% at the time of examination When I asked the patient to take deep breaths and saturation went up to 93-94%. Denies any chest pain, no headache, no nausea, no vomiting Has been using incentive spirometry as well as flutter valve. Not bringing up any phlegm. She overall feels better. Review of Systems Review of Systems: All systems reviewed & are unremarkable except as noted in Subjective Physical Exam Physical Exam: Constitutional: No acute distress HEENT: EOMI, PERRLA Respiratory system: Decreased air entry bilaterally, no wheeze, no rhonchi, positive crackles bilateral lower lobes CVS: S1-S2 positive, no murmurs or gallops Abdomen: Soft, nontender, nondistended, positive bowel sounds x4, obese Extremities: +2 pulses bilaterally radialis/ dorsalis pedis, no cyanosis, no edema Neuro: Awake alert oriented x3 Psych: Normal mood and affect G/U: No [place] Skin: no rashes, warm and dry Lymphatic: no cervical or axillary lymphadenopathy Results & Data Results & Data ([facility]) Vital Signs (Past 12 Hours) Vital Signs Temp Pulse Pulse Pulse Resp BP Pulse Ox 07/23/21 08:20 91 07/23/21 07:56 65 07/23/21 07:39 36.8 C 75 21 103/50 L 92 07/23/21 07:31 65 22 90 07/23/21 04:10 36.1 C L 67 19 107/53 L 97 07/23/21 02:30 59 L 21 92 07/22/21 23:37 36.1 C L 62 19 100/58 L 94 07/22/21 22:25 59 L 07/22/21 22:09 60 21 95 07/23/21 06:02 07/23/21 06:02 PG Care Time/CCT Total # of Minutes Spent Total Time Spent with Patient: Total time spent is greater than 50% in coordination of care (as documented) at patient's floor/unit and/or counseling patient: Coding Level of Care Code 43871 Subseq Hosp Care Lvl 3 Diagnoses Pneumonia due to 2019-nCoV U07.1; J12.82 Acute respiratory failure due to COVID-19 U07.1; J96.00 Obesity E66.9
[2021-07-23] MEDS ORDERED: POTASSIUM CHLORIDE CRTAB 20 MEQ TABCR PO ONE ×2 (09:00→16:30)
--- NOTE | 2021-07-23 10:49 | XRay Report ---
XR chest 1V portable CLINICAL HISTORY: f/u COMPARISON STUDY: Chest radiograph July 21, 2021. FINDINGS: Lung volumes are at the lower limits of normal. There is no pneumothorax or pleural effusio n. Airspace opacities have slightly improved. Cardiomediastinal silhouette is stable. IMPRESSION: Slight improvement in bilateral airspace opacities. ACT 112: Negative or not required by law. Electronically signed by: Brennen Mahoney M.D. 07/23/2021 10:48 AM
[2021-07-23] MEDS: cefTRIAXone SODIUM 2,000 MG in DEXTROSE 5% 50 ML IV SCH (12:49)
--- NOTE | 2021-07-23 13:04 | Hospitalist Progress Note ---
Date of Service July 23, 2021 Assessment & Plan (1) Acute respiratory failure due to COVID-19: Plan: Doing well on hi flow oxygen/vapotherm for support. asix daily with 1.7L out net overnight. Cont to prone as often as able, which she is doing. Continuous pulse ox monitoring. Pulm following and increased dexamethasone to 10mg IV daily. CRP went up to 12.0 as of 07/21/2021 CRP minimally improved at 11.30-we will recheck tomorrow Oxygen to maintain saturation CRP level has come down to 4.69 as of 07/23/2021 from 11.30 on 07/22/2021 We will continue current medications (2) Sepsis: Plan: Resuscitated, Cont treatment for covid pneumonia and clinical pyelonephritis in this immunosuppressed patient. Has been on ceftriaxone No fever and/or chills and white counts remains minimally elevated and is complicated by use of dexamethasone (3) Immunosuppressed status: Plan: Holding MTX, plaquenil at this time. Improved on steorid therapy given from a joint symptom perspective. (4) Pneumonia due to COVID-19 virus: Plan: Cont with daily dexamethasone and remdesivir. Monitor renal function and LFTs. Cont oxygen supplementation as needed. Repeat chest x-ray on 07/21/2021 did not show any improvement As above (5) Acute pyelonephritis: Plan: Ceftriaxone started empirically given septic appearance on arrival, leukopenia, flank pain an dysuria, fevers. Urine and blood cultures remain negative. She is clinically improved with a resolution of flank pain and dysuria. Leukopenia on labwork is improved. Fever this am 07/20/2021, cont IV abx for now and plan for a short course of a ntibiotics to treat a presumed pyelonephritis. We will continue current antibiotic (6) Lupus: Plan: Takes MTX, recently took on two days ago and has been on a prednisone taper since Mon beginning at 15mg daily. Malar rash and joint pain resolved. Hold MTX, plaquenil and cont steroid therapy as above. (7) DMII (diabetes mellitus, type 2): Plan: Hold home medications, repeat A1C which was slightly uncontrolled in March 2021 at 7.6. Cont with glargine and novolog with intensification while on steroid therapy. Cont current regimen. (8) Obesity: Plan: Lifestyle recommendations on discharge to ensure efforts to decrease percent body fat and increase lean muscle mass. (9) Insomnia: Plan: Cont trazodone per home regimen. Cut dose by 50% with ongoing hypoxia. (10) DVT prophylaxis: Plan: Lovenox Full Dispo-Cont PCU monitoring. Very slow improvement Admission and Anticipated Discharge Date Admission Date: July 15, 2021 Subjective This is the bill for 07/21/2021 The patient was seen and examined in telemetry unit and in the Covid room She has been feeling a little bit better but is still requiring high flow oxygen to maintain saturation Complains today of cough but denies any fever and/or chills 07/22/2021 The patient was seen and examined in telemetry unit and in the Covid room She has been feeling better but requiring high flow oxygen to maintain saturation Minimal shortness of breath at rest Denies any other symptoms 07/23/2021 The patient was seen and examined in telemetry unit in the Covid room She has been requiring high flow of oxygen to maintain saturation She looks better and feels better clinically Review of Systems Review of Systems: All systems reviewed and are unremarkable except as noted below Respiratory: Mild to moderate shortness of breath at rest Physical Exam Physical Exam: Sitting on a chair with moderate shortness of breath Constitutional: well developed, well nourished, + ill appearing and + obese Eyes: PERRL, conjunctivae normal, anicteric sclerae ENMT: external ear and nose normal, oropharynx normal Neck: trachea midline, no thyromegaly Respiratory: + respiratory distress (Moderate distress at rest) Auscultation: + diminished lung sounds and + crackles (Occasional crackles at the bases) Cardiovascular: Rate/Rhythm: regular rate and regular rhythm; not tachycardic Heart Sounds: normal S1 and normal S2; no murmur Extremities: + edema (Trace edema bilaterally) Gastrointestinal (Abdomen): Inspection/Auscultation: normal bowel sounds; abdomen not distended Percussion/Palpation: abdomen soft; abdomen nontender Neurologic: CN's II-XI intact bilaterally Psychiatric: A+Ox3, euthymic affect Lymphatic: no cervical or axillary lymphadenopathy Results & Data Results & Data ([facility]) Vital Signs (Past 12 Hours) Vital Signs Temp Pulse Pulse Pulse Resp BP Pulse Ox 07/23/21 11:11 36.8 C 67 20 116/82 91 07/23/21 10:59 68 18 92 07/23/21 10:15 93 07/23/21 08:20 91 07/23/21 08:00 07/23/21 07:56 65 07/23/21 07:39 36.8 C 75 21 103/50 L 92 07/23/21 07:31 65 22 90 07/23/21 04:10 36.1 C L 67 19 107/53 L 97 07/23/21 02:30 59 L 21 92 Pulse Ox 07/23/21 11:11 07/23/21 10:59 07/23/21 10:15 07/23/21 08:20 07/23/21 08:00 92 07/23/21 07:56 07/23/21 07:39 07/23/21 07:31 07/23/21 04:10 07/23/21 02:30 Laboratory Results Short CBC 07/23/21 Range/Units 06:02 WBC 6.65 (4.8-10.8) K/uL Hgb 12.8 (12.0-16.0) g/dL Hct 39.1 (37-47) % Plt Count 156 (130-400) K/uL BMP 07/23/21 06:02 Sodium 140 Potassium 3.3 L Chloride 106 Carbon Dioxide 29 BUN 26 H Creatinine 0.44 L Glucose 104 H Calcium 8.8 Liver Function 07/23/21 Range/Units 06:02 Total Bilirubin 0.4 (0.2-1) mg/dl AST 24 (15-37) U/L ALT 18 (12-78) U/L Alkaline Phosphatase 78 (45-117) U/L Albumin 2.5 L (3.4-5.0) gm/dl Medications Administered Current Inpatient Medications Acetaminophen (Acetaminophen 325 Mg Tab) 650 mg PO Q4H PRN PRN Reason: Pain or Fever Stop: 08/14/21 15:25 Last Admin: 07/17/21 06:28 Dose: 650 mg Documented by: Ascorbic Acid (Ascorbic Acid 500 Mg Tab) 500 mg PO BID [facility] Stop: 08/14/21 20:59 Last Admin: 07/23/21 08:49 Dose: 500 mg Documented by: Celecoxib (Celebrex 200 Mg Cap) 200 mg PO BID [facility] Stop: 08/14/21 20:59 Last Admin: 07/23/21 08:49 Dose: 200 mg Documented by: Dextrose (Dextrose 50% 50 Ml Syringe) 25 - 50 ml IV UD PRN; Protocol PRN Reason: Hypoglycemia Protocol Stop: 08/14/21 15:25 Enoxaparin Sodium (Enoxaparin Inj 40 Mg/0.4 Ml Syr) 40 mg SQ Q12H [facility] Stop: 08/14/21 17:59 Last Admin: 07/23/21 05:39 Dose: 40 mg Documented by: Fluoxetine HCl (Fluoxetine Hcl 20 Mg Cap) 20 mg PO DAILY [facility] Stop: 08/15/21 08:59 Last Admin: 07/23/21 08:49 Dose: 20 mg Documented by: Folic Acid (Folic Acid 1 Mg Tab) 1 mg PO DAILY [facility] Stop: 08/15/21 08:59 Last Admin: 07/23/21 08:50 Dose: 1 mg Documented by: Gabapentin (Gabapentin 300 Mg Cap) 300 mg PO HS [facility] Stop: 08/14/21 20:59 Last Admin: 07/22/21 21:10 Dose: 300 mg Documented by: Glucagon (Glucagon For Inj 1 Mg Vial) 1 mg SQ UD PRN; Protocol PRN Reason: Hypoglycemia Protocol Stop: 08/14/21 15:25 Glucose (Glucose 10 Tabs/Tube) 4 - 8 tabs PO UD PRN; Protocol PRN Reason: Hypoglycemia Protocol Stop: 08/14/21 15:25 Glucose (Glucose 40% Gel 15 Gm Tube) 15 - 30 gm PO UD PRN; Protocol PRN Reason: Hypoglycemia Protocol Stop: 08/14/21 15:25 Guaifenesin (Guaifenesin 600 Mg Tabcr) 600 mg PO Q12 [facility] Stop: 08/17/21 20:59 Last Admin: 07/23/21 08:50 Dose: 600 mg Documented by: Ceftriaxone Sodium 2,000 mg/ (Dextrose) 50 mls @ 100 mls/hr IV Q24H [facility]; Protocol Stop: 07/25/21 13:29 Last Admin: 07/23/21 12:49 Dose: 100 mls/hr Documented by: Dexamethasone 10 mg/ Syringe 2.5 mls @ 1 mls/min IV Q24H [facility] Stop: 08/18/21 08:59 Last Admin: 07/23/21 08:48 Dose: 1 mls/min Documented by: Furosemide 40 mg/ Syringe 4 mls @ 4 mls/min IV Q24H [facility] Stop: 08/20/21 07:29 Last Admin: 07/23/21 08:48 Dose: 4 mls/min Documented by: Insulin Aspart (Insulin Aspart 100 Units/Ml 3 Ml Pen) 0 units SC ACHS [facility] Stop: 08/14/21 16:29 Last Admin: 07/23/21 12:48 Dose: 11 units Documented by: Insulin Glargine (Insulin Glargine Solostar 100 Units/Ml 3 Ml Pen) 10 units SC BID [facility] Stop: 08/15/21 20:59 Last Admin: 07/23/21 08:51 Dose: 10 units Documented by: Miscellaneous (Carbohydrates For Hypoglycemia ) 15 - 30 gm PO UD PRN PRN Reason: Hypoglycemia Protocol Stop: 08/14/21 15:25 Ondansetron HCl (Ondansetron Inj 2 Mg/Ml 2 Ml Vial) 4 mg IV Q6H PRN PRN Reason: Nausea Stop: 08/14/21 15:25 Oxymetazoline HCl (Oxymetazoline 0.05% 30 Ml Btl) 1 sprays NA Q12H PRN PRN Reason: Congestion Stop: 08/21/21 11:07 Last Admin: 07/22/21 12:01 Dose: 1 sprays Documented by: Pantoprazole Sodium (Pantoprazole 40 Mg Tab) 40 mg PO BID [facility] Stop: 08/17/21 20:59 Last Admin: 07/23/21 08:50 Dose: 40 mg Documented by: Potassium Chloride (Potassium Chloride Crtab 20 Meq Tabcr) 40 meq PO QDD ONE Stop: 07/23/21 16:31 Trazodone HCl (Trazodone Hcl 100 Mg Tab) 100 mg PO HS PRN PRN Reason: insomnia Stop: 08/14/21 20:59 Last Admin: 07/22/21 21:11 Dose: 100 mg Documented by: Vitamin D (Cholecalciferol 1,000 Units 25 Mcg Tab) 1,000 units PO QAM [facility] Stop: 08/14/21 15:25 Last Admin: 07/23/21 08:50 Dose: 1,000 units Documented by: Zinc Sulfate (Zinc Sulfate 220 Mg Capsule) 220 mg PO QAM [facility] Stop: 08/14/21 15:25 Last Admin: 07/23/21 08:50 Dose: 220 mg Documented by:
[2021-07-23] MEDS: traZODone HCL 100 MG TAB PO PRN (20:09)
[2021-07-23] MEDS: GABAPENTIN 300 MG CAP PO SCH (20:10)
[2021-07-23] MEDS ORDERED: LORazepam 0.25 MG/0.5 ML VIAL IV STA (22:57)
[2021-07-24 06:18] LABS: Basophils # (auto) 0.01 K/uL (0-0.2); Basophils % (auto) 0.2 %; Eosinophils % (auto) 1.6 %; Hematocrit (blood only) 39.3 % (37-47); Hemoglobin 12.7 g/dL (12.0-16.0); Immature Granulocytes # (auto) 0.03 K/uL (0.00-0.02); Immature Granulocytes % (auto) 0.5 %; Lymphocytes # (auto) 0.92 K/uL (1.2-3.4); Lymphocytes % (auto) 14.7 %; Mean Corpuscular Hemoglobin 27.9 pg (25-34); Mean Corpuscular Hgb Conc 32.3 g/dL (32-36); Mean Corpuscular Volume 86.2 fL (80-100); Mean Platelet Volume 9.6 fL (7.4-10.4); Monocytes # (auto) 0.16 K/uL (0.11-0.59); Monocytes % (auto) 2.6 %; Neutrophils # (auto) 5.03 K/uL (1.4-6.5); Neutrophils % (auto) 80.4 %; Platelet Count 160 K/uL (130-400); RDW Coefficient of Variation 14.4 % (11.5-14.5); RDW Standard Deviation 45.4 fL (36.4-46.3); Red Blood Count 4.56 M/uL (4.2-5.4); White Blood Count 6.25 K/uL (4.8-10.8)
[2021-07-24] MEDS: ENOXAPARIN INJ 40 MG/0.4 ML SYR SQ SCH ×2 (06:27→17:54)
[2021-07-24 07:07] LABS: BUN Creatinine Ratio 56.1 (10-20); Calcium 8.8 mg/dl (8.5-10.1); Creatinine Clr Calc Pharmacy 192.3 ml/min; Est GFR (African American) 141.4 ml/min; Phosphorus 4.3 mg/dl (2.5-4.9); Potassium 3.8 mmol/L (3.5-5.1)
[2021-07-24] MEDS: dexAMETHasone 10 MG in SYRINGE 0 ML IV SCH (08:05)
[2021-07-24] MEDS ORDERED: SODIUM CHLORIDE 0.9% 500 ML IV ONE (08:05)
[2021-07-24] MEDS: CHOLECALCIFEROL 1,000 UNITS 25 MCG TAB PO SCH (08:05)
[2021-07-24] MEDS: guaiFENesin 600 MG TABCR PO SCH ×2 (08:05→21:06)
[2021-07-24] MEDS: FOLIC ACID 1 MG TAB PO SCH (08:05)
[2021-07-24] MEDS: ZINC SULFATE 220 MG CAPSULE PO SCH (08:05)
[2021-07-24] MEDS: CeleBREX 200 MG CAP PO SCH ×2 (08:05→21:05)
[2021-07-24] MEDS: FLUoxetine HCL 20 MG CAP PO SCH (08:05)
[2021-07-24] MEDS: PANTOprazole 40 MG TAB PO SCH ×2 (08:05→21:05)
[2021-07-24] MEDS: FUROSEMIDE 40 MG in SYRINGE 0 ML IV SCH (08:15)
[2021-07-24] MEDS: ASCORBIC ACID 500 MG TAB PO SCH ×2 (08:15→21:06)
[2021-07-24] MEDS: OXYMETAZOLINE 0.05% 30 ML BTL PRN (08:18)
[2021-07-24] MEDS: INSULIN GLARGINE SOLOSTAR 100 UNITS/ML 3 ML PEN SC SCH ×2 (08:24→21:12)
[2021-07-24] MEDS: INSULIN ASPART 100 UNITS/ML 3 ML PEN SC SCH ×4 (08:25→21:12)
--- NOTE | 2021-07-24 11:26 | Pulmonology Progress Note ---
Date of Service July 24, 2021 Assessment & Plan (1) Acute respiratory failure due to COVID-19: Plan: 46-year-old female with a past medical history of lupus on methotrexate, morbid obesity with a BMI of 42.1 and anxiety who is currently in the hospital due to acute hypoxemic respiratory failure from Covid pneumonia. Covid pneumonia: Continue Decadron. She is currently on an increased dose of 10 mg daily. Unfortunately, she is requiring escalating amounts of supplemental oxygen. I have alerted the ICU team to be aware of her situation as it is very likely that she may progress to needing ICU level of care and possibly mechanical ventilation with intubation. I suspect that her obesity is playing a significant role in her hypoxia. Proning is highly encouraged. Continue with diuresis to achieve a negative fluid status. IVIG can be considered if her condition deteriorates further. She would be at an increased risk of venous thromboembolism with the use of IVIG. Obesity: Weight loss is advised. Continue to use as needed CPAP to help support her respiratory status. History of lupus: Methotrexate and hydroxychloroquine on hold at present. The higher dose of Decadron should help prevent a lupus flare. Again, she is at a very significantly increased risk of developing venous thromboembolism due to her lupus. She is on Lovenox 40 mg twice daily. Pulmonary will continue to follow. Thank you for the consult. (2) Hypoxic: (3) Obesity: (4) Lupus: Admission and Anticipated Discharge Date Admission Date: July 15, 2021 Subjective Patient seen and examined this morning. 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 She is not vaccinated. She has a history of lupus and is on methotrexate. She notes that she had a side effect to the flu vaccine and ended up with a lupus flare and decided not to get vaccinated. Today, she is optimistic and notes that she feels less short of breath. She does have a junky cough. She denies any hemoptysis. Unfortunately, she was desaturating to the low 80s on 80% FiO2 with a flow rate of 40 L/min. I increased her FiO2 to 90%. She is sitting up in her bed. She tries to prone when she is sleeping. Review of Systems Review of Systems: 08/31 point ROS negative unless noted elsewhere Physical Exam Physical Exam: Constitutional: Obese appearing female in no significant distress. Eyes: Pupils are equal round and reactive to light. Conjunctivae are normal. Anicteric sclera. Ears nose, mouth and throat: No obvious deformities noted. Neck: Trachea is midline. Visual inspection is normal. Respiratory: Diminished bilaterally. Mildly increased work of breathing. Cardiovascular: Regular rate and rhythm. No murmurs. No edema. Gastrointestinal: Normal bowel sounds, soft, nontender and nondistended. No hepatosplenomegaly noted. Musculoskeletal: No cyanosis. Patient is able to move all extremities. Strength is 5 out of 5 in the upper and lower extremities. Skin: No rashes, warm dry and intact. Neurologic: No obvious focal neurological deficits seen. Psychiatric: Alert and oriented x3 with a euthymic affect. Results & Data Results & Data ([facility]) Vital Signs (Past 12 Hours) Vital Signs Temp Pulse Pulse Resp BP BP Pulse Ox 07/24/21 10:30 123/54 L 07/24/21 10:00 131/72 07/24/21 09:45 130/103 H 07/24/21 09:35 128/62 07/24/21 09:15 108/72 07/24/21 09:00 88/68 L 07/24/21 08:22 77/48 L 07/24/21 08:01 62/43 L 07/24/21 08:00 07/24/21 07:56 97 H 22 89 L 07/24/21 07:55 78/49 L 07/24/21 07:51 84/58 L 74/50 L 07/24/21 07:44 98.8 F 86 22 73/54 L 89 L 07/24/21 07:00 71 07/24/21 03:46 97.5 F L 68 19 100/55 L 90 07/24/21 03:16 61 20 95 07/23/21 23:42 64 30 H 96 Pulse Ox 07/24/21 10:30 07/24/21 10:00 07/24/21 09:45 07/24/21 09:35 07/24/21 09:15 07/24/21 09:00 07/24/21 08:22 07/24/21 08:01 07/24/21 08:00 90 07/24/21 07:56 07/24/21 07:55 07/24/21 07:51 07/24/21 07:44 07/24/21 07:00 07/24/21 03:46 07/24/21 03:16 07/23/21 23:42 vital signs, labs and imaging personally reviewed PG Care Time/CCT Total # of Minutes Spent Total Time Spent with Patient: Total time spent is greater than 50% in coordination of care (as documented) at patient's floor/unit and/or counseling patient: Coding Level of Care Code 01730 Subseq Hosp Care Lvl 3 Diagnoses Acute respiratory failure due to COVID-19 U07.1; J96.00 Hypoxic R09.02 Obesity E66.9 Lupus M32.9
--- NOTE | 2021-07-24 11:38 | Hospitalist Progress Note ---
Date of Service July 24, 2021 Assessment & Plan (1) Acute respiratory failure due to COVID-19: Plan: Doing well on hi flow oxygen/vapotherm for support. asix daily with 1.7L out net overnight. Cont to prone as often as able, which she is doing. Continuous pulse ox monitoring. Pulm following and increased dexamethasone to 10mg IV daily. CRP went up to 12.0 as of 07/21/2021 CRP minimally improved at 11.30-we will recheck tomorrow Oxygen to maintain saturation CRP level has come down to 4.69 as of 07/23/2021 from 11.30 on 07/22/2021 Chest x-ray on 07/23/2021 did show improvement Still requiring high flow oxygen We will continue current management (2) Sepsis: Plan: Resuscitated, Cont treatment for covid pneumonia and clinical pyelonephritis in this immunosuppressed patient. Has been on ceftriaxone No fever and/or chills and white counts remains minimally elevated and is complicated by use of dexamethasone We will continue current antibiotic (3) Immunosuppressed status: Plan: Holding MTX, plaquenil at this time. Improved on steorid therapy given from a joint symptom perspective. (4) Pneumonia due to COVID-19 virus: Plan: Cont with daily dexamethasone and remdesivir. Monitor renal function and LFTs. Cont oxygen supplementation as needed. Repeat chest x-ray on 07/21/2021 did not show any improvement As above (5) Acute pyelonephritis: Plan: Ceftriaxone started empirically given septic appearance on arrival, leukopenia, flank pain an dysuria, fevers. Urine and blood cultures remain negative. She is clinically improved with a resolution of flank pain and dysuria. Leukopenia on labwork is improved. Fever this am 07/20/2021, cont IV abx for now and plan for a short course of antibiotics to treat a presumed pyelonephritis. We will continue current antibiotic (6) Lupus: Plan: Takes MTX, recently took on two days ago and has been on a prednisone taper since Mon beginning at 15mg daily. Malar rash and joint pain resolved. Hold MTX, plaquenil and cont steroid therapy as above. (7) DMII (diabetes mellitus, type 2): Plan: Hold home medications, repeat A1C which was slightly uncontrolled in March 2021 at 7.6. Cont with glargine and novolog with intensification while on steroid therapy. Cont current regimen. (8) Obesity: Plan: Lifestyle recommendations on discharge to ensure efforts to decrease percent body fat and increase lean muscle mass. (9) Insomnia: Plan: Cont trazodone per home regimen. Cut dose by 50% with ongoing hypoxia. (10) DVT prophylaxis: Plan: Lovenox Full Dispo-Cont PCU monitoring. Very slow improvement Plan: Will get physical therapy for the chest Admission and Anticipated Discharge Date Admission Date: July 15, 2021 Subjective This is the bill for 07/21/2021 The patient was seen and examined in telemetry unit and in the Covid room She has been feeling a little bit better but is still requiring high flow oxygen to maintain saturation Complains today of cough but denies any fever and/or chills 07/22/2021 The patient was seen and examined in telemetry unit and in the Covid room She has been feeling better but requiring high flow oxygen to maintain saturation Minimal shortness of breath at rest Denies any other symptoms 07/23/2021 The patient was seen and examined in telemetry unit in the Covid room She has been requiring high flow of oxygen to maintain saturation She looks better and feels better clinically 07/24/2021 The patient was seen and examined in telemetry unit and in Covid room She feels better but has been requiring 90% FiO2 to maintain saturation She was noted to have low blood pressure early this morning and that resolved with 500 mL of normal saline bolus We will hold off Lasix if blood pressure remains low tomorrow morning Review of Systems Review of Systems: All systems reviewed and are unremarkable except as noted below Respiratory: Minimally short of breath at rest Physical Exam Physical Exam: Lying in bed with minimal shortness of breath Constitutional: well developed, well nourished, + ill appearing and + obese Eyes: PERRL, conjunctivae normal, anicteric sclerae ENMT: external ear and nose normal, oropharynx normal Neck: trachea midline, no thyromegaly Respiratory: + respiratory distress (Moderate distress at rest) Auscultation: + diminished lung sounds and + crackles (Occasional crackles at the bases) Cardiovascular: Rate/Rhythm: regular rate and regular rhythm; not tachycardic Heart Sounds: normal S1 and normal S2; no murmur Extremities: + edema (Trace edema bilaterally) Gastrointestinal (Abdomen): Inspection/Auscultation: normal bowel sounds; abdomen not distended Percussion/Palpation: abdomen soft; abdomen nontender Musculoskeletal: No acute arthritis in any joint Neurologic: CN's II-XI intact bilaterally Psychiatric: A+Ox3, euthymic affect Lymphatic: no cervical or axillary lymphadenopathy Results & Data Results & Data ([facility]) Vital Signs (Past 12 Hours) Vital Signs Temp Pulse Pulse Pulse Resp BP BP 07/24/21 11:18 89 20 07/24/21 10:30 123/54 L 07/24/21 10:00 131/72 07/24/21 09:45 130/103 H 07/24/21 09:35 128/62 07/24/21 09:15 108/72 07/24/21 09:00 88/68 L 07/24/21 08:22 77/48 L 07/24/21 08:01 62/43 L 07/24/21 08:00 07/24/21 07:56 97 H 22 07/24/21 07:55 78/49 L 07/24/21 07:51 84/58 L 74/50 L 07/24/21 07:44 37.1 C 86 22 73/54 L 07/24/21 07:00 71 07/24/21 03:46 36.4 C L 68 19 100/55 L 07/24/21 03:16 61 20 07/23/21 23:42 64 30 H Pulse Ox Pulse Ox 07/24/21 11:18 91 07/24/21 10:30 07/24/21 10:00 07/24/21 09:45 07/24/21 09:35 07/24/21 09:15 07/24/21 09:00 07/24/21 08:22 07/24/21 08:01 07/24/21 08:00 90 07/24/21 07:56 89 L 07/24/21 07:55 07/24/21 07:51 07/24/21 07:44 89 L 07/24/21 07:00 07/24/21 03:46 90 07/24/21 03:16 95 07/23/21 23:42 96 Laboratory Results Short CBC 07/24/21 Range/Units 05:42 WBC 6.25 (4.8-10.8) K/uL Hgb 12.7 (12.0-16.0) g/dL Hct 39.3 (37-47) % Plt Count 160 (130-400) K/uL BMP 07/24/21 05:42 Sodium 142 Potassium 3.8 D Chloride 109 H Carbon Dioxide 30 BUN 24 H Creatinine 0.43 L Glucose 91 Calcium 8.8 Medications Administered Current Inpatient Medications Acetaminophen (Acetaminophen 325 Mg Tab) 650 mg PO Q4H PRN PRN Reason: Pain or Fever Stop: 08/14/21 15:25 Last Admin: 07/17/21 06:28 Dose: 650 mg Documented by: Ascorbic Acid (Ascorbic Acid 500 Mg Tab) 500 mg PO BID [facility] Stop: 08/14/21 20:59 Last Admin: 07/24/21 08:15 Dose: 500 mg Documented by: Celecoxib (Celebrex 200 Mg Cap) 200 mg PO BID [facility] Stop: 08/14/21 20:59 Last Admin: 07/24/21 08:05 Dose: 200 mg Documented by: Dextrose (Dextrose 50% 50 Ml Syringe) 25 - 50 ml IV UD PRN; Protocol PRN Reason: Hypoglycemia Protocol Stop: 08/14/21 15:25 Enoxaparin Sodium (Enoxaparin Inj 40 Mg/0.4 Ml Syr) 40 mg SQ Q12H [facility] Stop: 08/14/21 17:59 Last Admin: 07/24/21 06:27 Dose: 40 mg Documented by: Fluoxetine HCl (Fluoxetine Hcl 20 Mg Cap) 20 mg PO DAILY [facility] Stop: 08/15/21 08:59 Last Admin: 07/24/21 08:05 Dose: 20 mg Documented by: Folic Acid (Folic Acid 1 Mg Tab) 1 mg PO DAILY [facility] Stop: 08/15/21 08:59 Last Admin: 07/24/21 08:05 Dose: 1 mg Documented by: Gabapentin (Gabapentin 300 Mg Cap) 300 mg PO HS [facility] Stop: 08/14/21 20:59 Last Admin: 07/23/21 20:10 Dose: 300 mg Documented by: Glucagon (Glucagon For Inj 1 Mg Vial) 1 mg SQ UD PRN; Protocol PRN Reason: Hypoglycemia Protocol Stop: 08/14/21 15:25 Glucose (Glucose 10 Tabs/Tube) 4 - 8 tabs PO UD PRN; Protocol PRN Reason: Hypoglycemia Protocol Stop: 08/14/21 15:25 Glucose (Glucose 40% Gel 15 Gm Tube) 15 - 30 gm PO UD PRN; Protocol PRN Reason: Hypoglycemia Protocol Stop: 08/14/21 15:25 Guaifenesin (Guaifenesin 600 Mg Tabcr) 600 mg PO Q12 [facility] Stop: 08/17/21 20:59 Last Admin: 07/24/21 08:05 Dose: 600 mg Documented by: Ceftriaxone Sodium 2,000 mg/ (Dextrose) 50 mls @ 100 mls/hr IV Q24H [facility]; Protocol Stop: 07/25/21 13:29 Last Infusion: 07/23/21 13:50 Dose: Infused Documented by: Dexamethasone 10 mg/ Syringe 2.5 mls @ 1 mls/min IV Q24H [facility] Stop: 08/18/21 08:59 Last Admin: 07/24/21 08:05 Dose: 1 mls/min Documented by: Furosemide 40 mg/ Syringe 4 mls @ 4 mls/min IV Q24H [facility] Stop: 08/20/21 07:29 Last Admin: 07/24/21 08:15 Dose: Not Given Documented by: Sodium Chloride (Nss) 500 mls @ 125 mls/hr IV .Q4H [facility] Stop: 07/24/21 12:04 Last Admin: 07/24/21 08:14 Dose: 125 mls/hr Documented by: Insulin Aspart (Insulin Aspart 100 Units/Ml 3 Ml Pen) 0 units SC ACHS [facility] Stop: 08/14/21 16:29 Last Admin: 07/24/21 08:25 Dose: 9 units Documented by: Insulin Glargine (Insulin Glargine Solostar 100 Units/Ml 3 Ml Pen) 10 units SC BID [facility] Stop: 08/15/21 20:59 Last Admin: 07/24/21 08:24 Dose: 10 units Documented by: Miscellaneous (Carbohydrates For Hypoglycemia ) 15 - 30 gm PO UD PRN PRN Reason: Hypoglycemia Protocol Stop: 08/14/21 15:25 Ondansetron HCl (Ondansetron Inj 2 Mg/Ml 2 Ml Vial) 4 mg IV Q6H PRN PRN Reason: Nausea Stop: 08/14/21 15:25 Oxymetazoline HCl (Oxymetazoline 0.05% 30 Ml Btl) 1 sprays NA Q12H PRN PRN Reason: Congestion Stop: 08/21/21 11:07 Last Admin: 07/24/21 08:18 Dose: 1 sprays Documented by: Pantoprazole Sodium (Pantoprazole 40 Mg Tab) 40 mg PO BID [facility] Stop: 08/17/21 20:59 Last Admin: 07/24/21 08:05 Dose: 40 mg Documented by: Trazodone HCl (Trazodone Hcl 100 Mg Tab) 100 mg PO HS PRN PRN Reason: insomnia Stop: 08/14/21 20:59 Last Admin: 07/23/21 20:09 Dose: 100 mg Documented by: Vitamin D (Cholecalciferol 1,000 Units 25 Mcg Tab) [facility] [place] Stop: 08/14/21 15:25 Last Admin: 07/24/21 08:05 Dose: 1,000 units Documented by: Zinc Sulfate (Zinc Sulfate 220 Mg Capsule) 220 mg PO QAM [facility] Stop: 08/14/21 15:25 Last Admin: 07/24/21 08:05 Dose: 220 mg Documented by:
[2021-07-24] MEDS: cefTRIAXone SODIUM 2,000 MG in DEXTROSE 5% 50 ML IV SCH (13:02)
[2021-07-24] MEDS: GABAPENTIN 300 MG CAP PO SCH (21:06)
[2021-07-24] MEDS: traZODone HCL 100 MG TAB PO PRN (21:06)
[2021-07-24] MEDS ORDERED: LORazepam 0.25 MG/0.5 ML VIAL IV STA (21:27)
[2021-07-25] MEDS: ENOXAPARIN INJ 40 MG/0.4 ML SYR SQ SCH ×2 (05:31→17:42)
[2021-07-25 06:09] LABS: Eosinophils # (auto) 0.09 K/uL (0-0.5); Eosinophils % (auto) 1.3 %; Hematocrit (blood only) 37.4 % (37-47); Hemoglobin 12.1 g/dL (12.0-16.0); Immature Granulocytes # (auto) 0.01 K/uL (0.00-0.02); Immature Granulocytes % (auto) 0.1 %; Lymphocytes # (auto) 0.88 K/uL (1.2-3.4); Lymphocytes % (auto) 12.6 %; Mean Corpuscular Hemoglobin 27.9 pg (25-34); Mean Corpuscular Hgb Conc 32.4 g/dL (32-36); Mean Corpuscular Volume 86.4 fL (80-100); Mean Platelet Volume 9.7 fL (7.4-10.4); Monocytes # (auto) 0.12 K/uL (0.11-0.59); Monocytes % (auto) 1.7 %; Neutrophils # (auto) 5.91 K/uL (1.4-6.5); Neutrophils % (auto) 84.3 %; Platelet Count 159 K/uL (130-400); RDW Coefficient of Variation 14.5 % (11.5-14.5); RDW Standard Deviation 46.2 fL (36.4-46.3); Red Blood Count 4.33 M/uL (4.2-5.4); White Blood Count 7.01 K/uL (4.8-10.8)
[2021-07-25 06:58] LABS: Albumin Globulin Ratio 0.6 (0.9-2); Albumin Level 2.4 gm/dl (3.4-5.0); BUN Creatinine Ratio 50.3 (10-20); Bilirubin,Total 0.6 mg/dl (0.2-1); C Reactive Protein 6.34 mg/dl (0-0.29); Calcium 8.6 mg/dl (8.5-10.1); Creatinine Clr Calc Pharmacy 176.8 ml/min; Est GFR (African American) 137.3 ml/min; Est GFR (Non-African American) 118.5 ml/min; Potassium 3.6 mmol/L (3.5-5.1); Total Protein 6.4 gm/dl (6.4-8.2)
[2021-07-25] MEDS: FUROSEMIDE 40 MG in SYRINGE 0 ML IV SCH (08:36)
[2021-07-25] MEDS: INSULIN ASPART 100 UNITS/ML 3 ML PEN SC SCH ×4 (08:36→21:17)
[2021-07-25] MEDS: INSULIN GLARGINE SOLOSTAR 100 UNITS/ML 3 ML PEN SC SCH ×2 (08:37→21:18)
[2021-07-25] MEDS: FLUoxetine HCL 20 MG CAP PO SCH (08:38)
[2021-07-25] MEDS: ASCORBIC ACID 500 MG TAB PO SCH ×2 (08:38→21:22)
[2021-07-25] MEDS: ZINC SULFATE 220 MG CAPSULE PO SCH (08:38)
[2021-07-25] MEDS: CeleBREX 200 MG CAP PO SCH ×2 (08:38→21:22)
[2021-07-25] MEDS: OXYMETAZOLINE 0.05% 30 ML BTL PRN (08:38)
[2021-07-25] MEDS: FOLIC ACID 1 MG TAB PO SCH (08:38)
[2021-07-25] MEDS: PANTOprazole 40 MG TAB PO SCH ×2 (08:38→21:24)
[2021-07-25] MEDS: CHOLECALCIFEROL 1,000 UNITS 25 MCG TAB PO SCH (08:38)
[2021-07-25] MEDS: guaiFENesin 600 MG TABCR PO SCH ×2 (08:38→21:23)
[2021-07-25] MEDS: dexAMETHasone 10 MG in SYRINGE 0 ML IV SCH (08:39)
--- NOTE | 2021-07-25 09:55 | Pulmonology Progress Note ---
Date of Service July 25, 2021 Assessment & Plan (1) Acute respiratory failure due to COVID-19: Plan: 46-year-old female with a past medical history of lupus on methotrexate, morbid obesity with a BMI of 42.1 and anxiety who is currently in the hospital due to acute hypoxemic respiratory failure from Covid pneumonia. Covid pneumonia: Continue Decadron. She is currently on an increased dose of 10 mg daily. Unfortunately, she is requiring escalating amounts of supplemental oxygen. I spoke with the ICU team on 07/24/2021 regarding the possibility require transfer to ICU level of care. Low threshold for ICU transfer. I suspect that her obesity is playing a significant role in her hypoxia. Proning is highly encouraged. Continue with diuresis to achieve a negative fluid status. IVIG can be considered if her condition deteriorates further. She would be at an increased risk of venous thromboembolism with the use of IVIG. Acute hypoxemic respiratory failure: Recommend that we keep her saturations above 90% to prevent the development of pulmonary hypertension. I have requested that we bring in the [employer] ventilator into the room which can achieve a higher flow rate than the Vapotherm. She is currently on 93% FiO2 and 40 L of flow. Her saturations were 91% when I left the room. She did appear comfortable. Obesity: Weight loss is advised. Continue to use as needed CPAP to help support her respiratory status. She is using CPAP at night. History of lupus: Methotrexate and hydroxychloroquine on hold at present. The higher dose of Decadron should help prevent a lupus flare. Again, she is at a very significantly increased risk of developing venous thromboembolism due to her lupus. She is on Lovenox 40 mg twice daily. Pulmonary will continue to follow. Thank you for the consult. (2) Hypoxic: (3) Obesity: (4) Lupus: Admission and Anticipated Discharge Date Admission Date: July 15, 2021 Subjective Patient seen and examined this morning. She feels better after coughing up some "mucous plugs". She has been undergoing chest PT. Her oxygen requirements remain the same. She is currently on 80% FiO2 and 40 L of flow. She is saturating 86%. She desaturates easily to the low 80s while talking. She is limited in her mobility due to dyspnea. She denies any nausea or vomiting. No chest tightness. Review of Systems Review of Systems: 08/31 point ROS negative unless noted elsewhere Physical Exam Physical Exam: Constitutional: Obese appearing female in no significant distress. Eyes: Pupils are equal round and reactive to light. Conjunctivae are normal. Anicteric sclera. Ears nose, mouth and throat: No obvious deformities noted. Neck: Trachea is midline. Visual inspection is normal. Respiratory: Diminished bilaterally. Mildly increased work of breathing. Cardiovascular: Regular rate and rhythm. No murmurs. No edema. Gastrointestinal: Normal bowel sounds, soft, nontender and nondistended. No hepatosplenomegaly noted. Musculoskeletal: No cyanosis. Patient is able to move all extremities. Strength is 5 out of 5 in the upper and lower extremities. Skin: No rashes, warm dry and intact. Neurologic: No obvious focal neurological deficits seen. Psychiatric: Alert and oriented x3 with a euthymic affect. Results & Data Results & Data ([facility]) Vital Signs (Past 12 Hours) Vital Signs Temp Pulse Pulse Pulse Resp BP Pulse Ox 07/25/21 08:04 99.1 F 79 20 103/50 L 93 07/25/21 07:17 83 20 89 L 07/25/21 05:39 84 18 90 07/25/21 04:10 97.7 F 75 18 121/81 93 07/25/21 03:41 65 22 96 07/24/21 23:14 98.2 F 80 20 137/61 96 07/24/21 22:15 69 24 97 Vital signs, labs and imaging personally reviewed PG Care Time/CCT Total # of Minutes Spent Total Time Spent with Patient: Total time spent is greater than 50% in coordination of care (as documented) at patient's floor/unit and/or counseling patient: Coding Level of Care Code 55562 Subseq Hosp Care Lvl 3 Diagnoses Acute respiratory failure due to COVID-19 U07.1; J96.00 Hypoxic R09.02 Obesity E66.9 Lupus M32.9
--- NOTE | 2021-07-25 13:43 | Hospitalist Progress Note ---
Date of Service July 25, 2021 Assessment & Plan (1) Acute respiratory failure due to COVID-19: Plan: Doing well on hi flow oxygen/vapotherm for support. asix daily with 1.7L out net overnight. Cont to prone as often as able, which she is doing. Continuous pulse ox monitoring. Pulm following and increased dexamethasone to 10mg IV daily. CRP went up to 12.0 as of 07/21/2021 CRP minimally improved at 11.30-we will recheck tomorrow Oxygen to maintain saturation CRP level has come down to 4.69 as of 07/23/2021 from 11.30 on 07/22/2021 Chest x-ray on 07/23/2021 did show improvement Still requiring high flow oxygen-today it has been 6 L/min with FiO2 0.75-07/25/20 21 Inflammatory markers for COVID-19 has been improving but remains minimally elevated with normal procalcitonin Continue with current management as per pulmonary service (2) Sepsis: Plan: Resuscitated, Cont treatment for covid pneumonia and clinical pyelonephritis in this immunosuppressed patient. Has been on ceftriaxone No fever and/or chills and white counts remains minimally elevated and is complicated by use of dexamethasone We will continue current antibiotic (3) Immunosuppressed status: Plan: Holding MTX, plaquenil at this time. Improved on steorid therapy given from a joint symptom perspective. Likely the cause for slow improvement (4) Pneumonia due to COVID-19 virus: Plan: Cont with daily dexamethasone and remdesivir. Monitor renal function and LFTs. Cont oxygen supplementation as needed. Repeat chest x-ray on 07/21/2021 did not show any improvement As above (5) Acute pyelonephritis: Plan: Ceftriaxone started empirically given septic appearance on arrival, leukopenia, flank pain an dysuria, fevers. Urine and blood cultures remain negative. She is clinically improved with a resolution of flank pain and dysuria. Leukopenia on labwork is improved. Fever this am 07/20/2021, cont IV abx for now and plan for a short course of antibiotics to treat a presumed pyelonephritis. We will continue current antibiotic (6) Lupus: Plan: Takes MTX, recently took on two days ago and has been on a prednisone taper since Mon beginning at 15mg daily. Malar rash and joint pain resolved. Hold MTX, plaquenil and cont steroid therapy as above. (7) DMII (diabetes mellitus, type 2): Plan: Hold home medications, repeat A1C which was slightly uncontrolled in March 2021 at 7.6. Cont with glargine and novolog with intensification while on steroid therapy. Cont current regimen. (8) Obesity: Plan: Lifestyle recommendations on discharge to ensure efforts to decrease percent body fat and increase lean muscle mass. (9) Insomnia: Plan: Cont trazodone per home regimen. Cut dose by 50% with ongoing hypoxia. (10) DVT prophylaxis: Plan: Lovenox Full Dispo-Cont PCU monitoring. Very slow improvement Plan: Will get physical therapy for the chest Admission and Anticipated Discharge Date Admission Date: July 15, 2021 Subjective This is the bill for 07/21/2021 The patient was seen and examined in telemetry unit and in the Covid room She has been feeling a little bit better but is still requiring high flow oxygen to maintain saturation Complains today of cough but denies any fever and/or chills 07/22/2021 The patient was seen and examined in telemetry unit and in the Covid room She has been feeling better but requiring high flow oxygen to maintain saturation Minimal shortness of breath at rest Denies any other symptoms 07/23/2021 The patient was seen and examined in telemetry unit in the Covid room She has been requiring high flow of oxygen to maintain saturation She looks better and feels better clinically 07/24/2021 The patient was seen and examined in telemetry unit and in Covid room She feels better but has been requiring 90% FiO2 to maintain saturation She was noted to have low blood pressure early this morning and that resolved with 500 mL of normal saline bolus We will hold off Lasix if blood pressure remains low tomorrow morning 07/25/2021 The patient was seen and examined in telemetry unit and in Covid room Her overall condition is deteriorated as she still requires 6 L of nasal cannula oxygen to maintain saturation Clinically she has been feeling better though She is out of bed on a chair and has been communicating normally without any significant shortness of breath at rest Review of Systems Review of Systems: All systems reviewed and are unremarkable except as noted below Respiratory: Minimally short of breath at rest Physical Exam 2 Physical Exam: Sitting on a chair with minimal shortness of breath Constitutional: well developed, well nourished, + ill appearing and + obese Eyes: PERRL, conjunctivae normal, anicteric sclerae ENMT: external ear and nose normal, oropharynx normal Neck: trachea midline, no thyromegaly Respiratory: + respiratory distress (Moderate distress at rest) Auscultation: + diminished lung sounds and + crackles (Occasional crackles at the bases) Cardiovascular: Rate/Rhythm: regular rate and regular rhythm; not tachycardic Heart Sounds: normal S1 and normal S2; no murmur Extremities: + edema (Trace edema bilaterally) Gastrointestinal (Abdomen): Inspection/Auscultation: normal bowel sounds; abdomen not distended Percussion/Palpation: abdomen soft; abdomen nontender Musculoskeletal: No acute arthritis in any joint Neurologic: CN's II-XI intact bilaterally Psychiatric: A+Ox3, euthymic affect Lymphatic: no cervical or axillary lymphadenopathy Results & Data Results & Data ([facility]) Vital Signs (Past 12 Hours) Vital Signs Temp Pulse Pulse Pulse Resp BP Pulse Ox 07/25/21 11:32 37.3 C 82 19 97/59 L 93 07/25/21 10:11 83 19 90 07/25/21 08:04 37.3 C 79 20 103/50 L 93 07/25/21 08:00 07/25/21 07:30 84 07/25/21 07:17 83 20 89 L 07/25/21 05:39 84 18 90 07/25/21 04:10 36.5 C 75 18 121/81 93 07/25/21 03:41 65 22 96 Pulse Ox 07/25/21 11:32 07/25/21 10:11 07/25/21 08:04 07/25/21 08:00 89 L 07/25/21 07:30 07/25/21 07:17 07/25/21 05:39 07/25/21 04:10 07/25/21 03:41 Laboratory Results Short CBC 07/25/21 Range/Units 05:33 WBC 7.01 (4.8-10.8) K/uL Hgb 12.1 (12.0-16.0) g/dL Hct 37.4 (37-47) % Plt Count 159 (130-400) K/uL BMP 07/25/21 05:33 Sodium 139 Potassium 3.6 Chloride 108 H Carbon Dioxide 27 BUN 24 H Creatinine 0.47 L Glucose 97 Calcium 8.6 Liver Function 09/07/21 Range/Units 05:33 Total Bilirubin 0.6 (0.2-1) mg/dl AST 29 (15-37) U/L ALT 16 (12-78) U/L Alkaline Phosphatase 83 (45-117) U/L Albumin 2.4 L (3.4-5.0) gm/dl Medications Administered Current Inpatient Medications Acetaminophen (Acetaminophen 325 Mg Tab) 650 mg PO Q4H PRN PRN Reason: Pain or Fever Stop: 08/14/21 15:25 Last Admin: 07/17/21 06:28 Dose: 650 mg Documented by: Ascorbic Acid (Ascorbic Acid 500 Mg Tab) 500 mg PO BID COERY Stop: 08/14/21 20:59 Last Admin: 07/25/21 08:38 Dose: 500 mg Documented by: Celecoxib (Celebrex 200 Mg Cap) 200 mg PO BID COREY Stop: 08/14/21 20:59 Last Admin: 07/25/21 08:38 Dose: 200 mg Documented by: Dextrose (Dextrose 50% 50 Ml Syringe) 25 - 50 ml IV UD PRN; Protocol PRN Reason: Hypoglycemia Protocol Stop: 08/14/21 15:25 Enoxaparin Sodium (Enoxaparin Inj 40 Mg/0.4 Ml Syr) 40 mg SQ Q12H COREY Stop: 08/14/21 17:59 Last Admin: 07/25/21 05:31 Dose: 40 mg Documented by: Fluoxetine HCl (Fluoxetine Hcl 20 Mg Cap) 20 mg PO DAILY COREY Stop: 08/15/21 08:59 Last Admin: 07/25/21 08:38 Dose: 20 mg Documented by: Folic Acid (Folic Acid 1 Mg Tab) 1 mg PO DAILY COREY Stop: 08/15/21 08:59 Last Admin: 07/25/21 08:38 Dose: 1 mg Documented by: Gabapentin (Gabapentin 300 Mg Cap) 300 mg PO HS COREY Stop: 08/14/21 20:59 Last Admin: 07/24/21 21:06 Dose: 300 mg Documented by: Glucagon (Glucagon For Inj 1 Mg Vial) 1 mg SQ UD PRN; Protocol PRN Reason: Hypoglycemia Protocol Stop: 08/14/21 15:25 Glucose (Glucose 10 Tabs/Tube) 4 - 8 tabs PO UD PRN; Protocol PRN Reason: Hypoglycemia Protocol Stop: 08/14/21 15:25 Glucose (Glucose 40% Gel 15 Gm Tube) 15 - 30 gm PO UD PRN; Protocol PRN Reason: Hypoglycemia Protocol Stop: 08/14/21 15:25 Guaifenesin (Guaifenesin 600 Mg Tabcr) 600 mg PO Q12 COREY Stop: 08/17/21 20:59 Last Admin: 07/25/21 08:38 Dose: 600 mg Documented by: Dexamethasone 10 mg/ Syringe 2.5 mls @ 1 mls/min IV Q24H COREY Stop: 08/18/21 08:59 Last Admin: 07/25/21 08:39 Dose: 1 mls/min Documented by: Furosemide 40 mg/ Syringe 4 mls @ 4 mls/min IV Q24H COREY Stop: 08/20/21 07:29 Last Admin: 07/25/21 08:36 Dose: 4 mls/min Documented by: Insulin Aspart (Insulin Aspart 100 Units/Ml 3 Ml Pen) 0 units SC ACHS COREY Stop: 08/14/21 16:29 Last Admin: 07/25/21 12:49 Dose: 28 units Documented by: Insulin Glargine (Insulin Glargine Solostar 100 Units/Ml 3 Ml Pen) 13 units SC BID COREY Stop: 08/23/21 20:59 Last Admin: 07/25/21 08:37 Dose: 13 units Documented by: Miscellaneous (Carbohydrates For Hypoglycemia ) 15 - 30 gm PO UD PRN PRN Reason: Hypoglycemia Protocol Stop: 08/14/21 15:25 Ondansetron HCl (Ondansetron Inj 2 Mg/Ml 2 Ml Vial) 4 mg IV Q6H PRN PRN Reason: Nausea Stop: 08/14/21 15:25 Oxymetazoline HCl (Oxymetazoline 0.05% 30 Ml Btl) 1 sprays NA Q12H PRN PRN Reason: Congestion Stop: 08/21/21 11:07 Last Admin: 07/25/21 08:38 Dose: 1 sprays Documented by: Pantoprazole Sodium (Pantoprazole 40 Mg Tab) 40 mg PO BID [facility] Stop: 08/17/21 20:59 Last Admin: 07/25/21 08:38 Dose: 40 mg Documented by: Trazodone HCl (Trazodone Hcl 100 Mg Tab) 100 mg PO HS PRN PRN Reason: insomnia Stop: 08/14/21 20:59 Last Admin: 07/24/21 21:06 Dose: 100 mg Documented by: Vitamin D (Cholecalciferol 1,000 Units 25 Mcg Tab) 1,000 units PO [facility] Stop: 08/14/21 15:25 Last Admin: 07/25/21 08:38 Dose: 1,000 units Documented by: Zinc Sulfate (Zinc Sulfate 220 Mg Capsule) 220 mg PO [facility] Stop: 08/14/21 15:25 Last Admin: 07/25/21 08:38 Dose: 220 mg Documented by:
[2021-07-25] MEDS ORDERED: LORazepam 0.5 MG/1 ML VIAL IV STA (21:12)
[2021-07-25] MEDS: GABAPENTIN 300 MG CAP PO SCH (21:23)
[2021-07-25] MEDS: traZODone HCL 100 MG TAB PO PRN (21:25)
[2021-07-26] MEDS: ENOXAPARIN INJ 40 MG/0.4 ML SYR SQ SCH ×2 (06:09→17:42)
[2021-07-26] MEDS: FUROSEMIDE 40 MG in SYRINGE 0 ML IV SCH (07:27)
[2021-07-26] MEDS: INSULIN ASPART 100 UNITS/ML 3 ML PEN SC SCH ×4 (09:03→22:18)
[2021-07-26] MEDS: ASCORBIC ACID 500 MG TAB PO SCH ×2 (09:04→21:26)
[2021-07-26] MEDS: dexAMETHasone 10 MG in SYRINGE 0 ML IV SCH (09:04)
[2021-07-26] MEDS: CeleBREX 200 MG CAP PO SCH ×2 (09:04→21:24)
[2021-07-26] MEDS: FLUoxetine HCL 20 MG CAP PO SCH (09:05)
[2021-07-26] MEDS: CHOLECALCIFEROL 1,000 UNITS 25 MCG TAB PO SCH (09:05)
[2021-07-26] MEDS: guaiFENesin 600 MG TABCR PO SCH ×2 (09:05→21:24)
[2021-07-26] MEDS: PANTOprazole 40 MG TAB PO SCH ×2 (09:05→22:18)
[2021-07-26] MEDS: FOLIC ACID 1 MG TAB PO SCH (09:05)
[2021-07-26] MEDS: ZINC SULFATE 220 MG CAPSULE PO SCH (09:05)
[2021-07-26] MEDS: INSULIN GLARGINE SOLOSTAR 100 UNITS/ML 3 ML PEN SC SCH ×2 (09:06→20:25)
[2021-07-26] MEDS ORDERED: INSULIN HUMAN REGULAR PER UNIT 5 UNITS in SYRINGE 4.95 ML IV ONE (13:45)
--- NOTE | 2021-07-26 16:36 | Pulmonology Progress Note ---
Date of Service July 26, 2021 Assessment & Plan (1) Acute respiratory failure due to COVID-19: Plan: 46-year-old female with a past medical history of lupus on methotrexate, morbid obesity with a BMI of 42.1 and anxiety who is currently in the hospital due to acute hypoxemic respiratory failure from Covid pneumonia. Covid pneumonia: Continue Decadron. She is currently on an increased dose of 10 mg daily. Unfortunately, she is requiring escalating amounts of supplemental oxygen. I spoke with the ICU team on 07/24/2021 regarding the possibility require transfer to ICU level of care. Low threshold for ICU transfer. I suspect that her obesity is playing a significant role in her hypoxia. Proning is highly encouraged. Continue with diuresis to achieve a negative fluid status. I do not think there is much utility in trending CRP levels at this point as she is out of the window for therapies such as tocilizumab. Acute hypoxemic respiratory failure: Recommend that we keep her saturations above 90% to prevent the development of pulmonary hypertension. Continue high flow nasal cannula to maintain saturations above 90%. Currently requiring 60 L 90% FiO2. The patient understands that she is likely going to require supplemental oxygen for many weeks if not permanently. I also reiterated to her that she is likely going to have a very prolonged hospitalization due to the severity of her COVID-19 viral pneumonia. There is no evidence of bacterial pneumonia at this time. Obesity: Weight loss is advised. Continue to use as needed CPAP to help support her respiratory status. She is using CPAP at night. History of lupus: Methotrexate and hydroxychloroquine on hold at present. The higher dose of Decadron should help prevent a lupus flare. Again, she is at a very significantly increased risk of developing venous thromboembolism due to her lupus. She is on Lovenox 40 mg twice daily. Pulmonary will continue to follow. Thank you for the consult. Discussed with bedside nursing. (2) Hypoxic: (3) Obesity: (4) Lupus: Admission and Anticipated Discharge Date Admission Date: July 15, 2021 Subjective Patient seen and examined this afternoon. She is currently on 60 L of high flow nasal cannula at 80% FiO2. She is sitting up in her chair. She feels relatively stable compared to yesterday. She has been undergoing chest physiotherapy. She denies any lower extremity edema. No chest pain. Minimal cough. She does get fatigued easily. Review of Systems Review of Systems: All systems reviewed & are unremarkable except as noted in HPI & below Physical Exam Physical Exam: Constitutional: Obese appearing female in no significant distress. Eyes: Pupils are equal round and reactive to light. Conjunctivae are normal. Anicteric sclera. Ears nose, mouth and throat: No obvious deformities noted. Neck: Trachea is midline. Visual inspection is normal. Respiratory: Diminished bilaterally. Mildly increased work of breathing. Cardiovascular: Regular rate and rhythm. No murmurs. No edema. Gastrointestinal: Normal bowel sounds, soft, nontender and nondistended. No hepatosplenomegaly noted. Musculoskeletal: No cyanosis. Patient is able to move all extremities. Strength is 5 out of 5 in the upper and lower extremities. Skin: No rashes, warm dry and intact. Neurologic: No obvious focal neurological deficits seen. Psychiatric: Alert and oriented x3 with a euthymic affect. Results & Data Results & Data ([facility]) Vital Signs (Past 12 Hours) Vital Signs Temp Pulse Pulse Resp BP Pulse Ox 07/26/21 15:21 97.9 F 89 18 113/60 89 L 07/26/21 14:25 81 21 90 07/26/21 11:12 98.6 F 92 H 21 100/57 L 91 07/26/21 11:09 93 H 22 90 07/26/21 07:39 98.1 F 81 19 107/59 L 95 07/26/21 07:27 84 20 91 07/26/21 05:42 84 20 90 vital signs, labs and imaging personally reviewed PG Care Time/CCT Total # of Minutes Spent Total Time Spent with Patient: Total time spent is greater than 50% in coordination of care (as documented) at patient's floor/unit and/or counseling patient: Coding Level of Care Code 13620 Subseq Hosp Care Lvl 2 Diagnoses Acute respiratory failure due to COVID-19 U07.1; J96.00 Hypoxic R09.02 Obesity E66.9 Lupus M32.9
--- NOTE | 2021-07-26 17:00 | Hospitalist Progress Note ---
Date of Service July 26, 2021 Assessment & Plan (1) Acute respiratory failure due to COVID-19: Plan: Doing well on hi flow oxygen/vapotherm for support. asix daily with 1.7L out net overnight. Cont to prone as often as able, which she is doing. Continuous pulse ox monitoring. Pulm following and increased dexamethasone to 10mg IV daily. CRP went up to 12.0 as of 07/21/2021 CRP minimally improved at 11.30-we will recheck tomorrow Oxygen to maintain saturation CRP level has come down to 4.69 as of 07/23/2021 from 11.30 on 07/22/2021 Chest x-ray on 07/23/2021 did show improvement Still requiring high flow oxygen-today it has been 6 L/min with FiO2 0.75-07/25/20 21 Inflammatory markers for COVID-19 has been improving but remains minimally elevated with normal procalcitonin Continue with current management as per pulmonary service Remains stable and requiring high flow oxygen We will repeat inflammatory markers tomorrow (2) Sepsis: Plan: Resuscitated, Cont treatment for covid pneumonia and clinical pyelonephritis in this immunosuppressed patient. Has been on ceftriaxone No fever and/or chills and white counts remains minimally elevated and is complicated by use of dexamethasone We will continue current antibiotic (3) Immunosuppressed status: Plan: Holding MTX, plaquenil at this time. Improved on steorid therapy given from a joint symptom perspective. Likely the cause for slow improvement (4) Pneumonia due to COVID-19 virus: Plan: Cont with daily dexamethasone and remdesivir. Monitor renal function and LFTs. Cont oxygen supplementation as needed. Repeat chest x-ray on 07/21/2021 did not show any improvement As above (5) Acute pyelonephritis: Plan: Ceftriaxone started empirically given septic appearance on arrival, leukopenia, flank pain an dysuria, fevers. Urine and blood cultures remain negative. She is clinically improved with a resolution of flank pain and dysuria. Leukopenia on labwork is improved. Fever this am 07/20/2021, cont IV abx for now and plan for a short course of antibiotics to treat a presumed pyelonephritis. We will continue current antibiotic (6) Lupus: Plan: Takes MTX, recently took on two days ago and has been on a prednisone taper since Mon beginning at 15mg daily. Malar rash and joint pain resolved. Hold MTX, plaquenil and cont steroid therapy as above. (7) DMII (diabetes mellitus, type 2): Plan: Hold home medications, repeat A1C which was slightly uncontrolled in March 2021 at 7.6. Cont with glargine and novolog with intensification while on steroid therapy. Cont current regimen. SSI has been adjusted (8) Obesity: Plan: Lifestyle recommendations on discharge to ensure efforts to decrease percent body fat and increase lean muscle mass. (9) Insomnia: Plan: Cont trazodone per home regimen. Cut dose by 50% with ongoing hypoxia. (10) DVT prophylaxis: Plan: Lovenox Full Dispo-Cont PCU monitoring. Very slow improvement Plan: Will get physical therapy for the chest Admission and Anticipated Discharge Date Admission Date: July 15, 2021 Subjective This is the bill for 07/21/2021 The patient was seen and examined in telemetry unit and in the Covid room She has been feeling a little bit better but is still requiring high flow oxygen to maintain saturation Complains today of cough but denies any fever and/or chills 07/22/2021 The patient was seen and examined in telemetry unit and in the Covid room She has been feeling better but requiring high flow oxygen to maintain saturation Minimal shortness of breath at rest Denies any other symptoms 07/23/2021 The patient was seen and examined in telemetry unit in the Covid room She has been requiring high flow of oxygen to maintain saturation She looks better and feels better clinically 07/24/2021 The patient was seen and examined in telemetry unit and in Covid room She feels better but has been requiring 90% FiO2 to maintain saturation She was noted to have low blood pressure early this morning and that resolved with 500 mL of normal saline bolus We will hold off Lasix if blood pressure remains low tomorrow morning 07/25/2021 The patient was seen and examined in telemetry unit and in Covid room Her overall condition is deteriorated as she still requires 6 L of nasal cannula oxygen to maintain saturation Clinically she has been feeling better though She is out of bed on a chair and has been communicating normally without any significant shortness of breath at rest 07/26/2021 The patient was seen and examined in telemetry unit and in Covid room She looks better clinically and has been sitting on a chair but is still requiring high flow oxygen to maintain saturation Denies any fever and/or chills Review of Systems Review of Systems: All systems reviewed and are unremarkable except as noted below Respiratory: Minimally short of breath at rest Physical Exam Physical Exam: Sitting on a chair with minimal shortness of breath Constitutional: well developed, well nourished, + ill appearing and + obese Eyes: PERRL, conjunctivae normal, anicteric sclerae ENMT: external ear and nose normal, oropharynx normal Neck: trachea midline, no thyromegaly Respiratory: + respiratory distress (Moderate distress at rest) Auscultation: + diminished lung sounds and + crackles (Occasional crackles at the bases) Cardiovascular: Rate/Rhythm: regular rate and regular rhythm; not tachycardic Heart Sounds: normal S1 and normal S2; no murmur Extremities: + edema (Trace edema bilaterally) Gastrointestinal (Abdomen): Inspection/Auscultation: normal bowel sounds; abdomen not distended Percussion/Palpation: abdomen soft; abdomen nontender Musculoskeletal: No acute arthritis in any joint Neurologic: CN's II-XI intact bilaterally Psychiatric: A+Ox3, euthymic affect Lymphatic: no cervical or axillary lymphadenopathy Results & Data Results & Data ([facility]) Vital Signs (Past 12 Hours) Vital Signs Temp Pulse Pulse Resp BP Pulse Ox 07/26/21 15:21 36.6 C 89 18 113/60 89 L 07/26/21 14:25 81 21 90 07/26/21 11:12 37.0 C 92 H 21 100/57 L 91 07/26/21 11:09 93 H 22 90 07/26/21 07:39 36.7 C 81 19 107/59 L 95 07/26/21 07:27 84 20 91 07/26/21 05:42 84 20 90 Medications Administered Current Inpatient Medications Acetaminophen (Acetaminophen 325 Mg Tab) 650 mg PO Q4H PRN PRN Reason: Pain or Fever Stop: 08/14/21 15:25 Last Admin: 07/17/21 06:28 Dose: 650 mg Documented by: Ascorbic Acid (Ascorbic Acid 500 Mg Tab) 500 mg PO BID [facility] Stop: 08/14/21 20:59 Last Admin: 07/26/21 09:04 Dose: 500 mg Documented by: Celecoxib (Celebrex 200 Mg Cap) 200 mg PO BID [facility] Stop: 08/14/21 20:59 Last Admin: 07/26/21 09:04 Dose: 200 mg Documented by: Dextrose (Dextrose 50% 50 Ml Syringe) 25 - 50 ml IV UD PRN; Protocol PRN Reason: Hypoglycemia Protocol Stop: 08/14/21 15:25 Enoxaparin Sodium (Enoxaparin Inj 40 Mg/0.4 Ml Syr) 40 mg SQ Q12H [facility] Stop: 08/14/21 17:59 Last Admin: 07/26/21 06:09 Dose: 40 mg Documented by: Fluoxetine HCl (Fluoxetine Hcl 20 Mg Cap) 20 mg PO DAILY [facility] Stop: 08/15/21 08:59 Last Admin: 07/26/21 09:05 Dose: 20 mg Documented by: Folic Acid (Folic Acid 1 Mg Tab) 1 mg PO DAILY [facility] Stop: 08/15/21 08:59 Last Admin: 07/26/21 09:05 Dose: 1 mg Documented by: Gabapentin (Gabapentin 300 Mg Cap) 300 mg PO HS [facility] Stop: 08/14/21 20:59 Last Admin: 07/25/21 21:23 Dose: 300 mg Documented by: Glucagon (Glucagon For Inj 1 Mg Vial) 1 mg SQ UD PRN; Protocol PRN Reason: Hypoglycemia Protocol Stop: 08/14/21 15:25 Glucose (Glucose 10 Tabs/Tube) 4 - 8 tabs PO UD PRN; Protocol PRN Reason: Hypoglycemia Protocol Stop: 08/14/21 15:25 Glucose (Glucose 40% Gel 15 Gm Tube) 15 - 30 gm PO UD PRN; Protocol PRN Reason: Hypoglycemia Protocol Stop: 08/14/21 15:25 Guaifenesin (Guaifenesin 600 Mg Tabcr) 600 mg PO Q12 [facility] Stop: 08/17/21 20:59 Last Admin: 07/26/21 09:05 Dose: 600 mg Documented by: Dexamethasone 10 mg/ Syringe 2.5 mls @ 1 mls/min IV Q24H [facility] Stop: 08/18/21 08:59 Last Admin: 07/26/21 09:04 Dose: 1 mls/min Documented by: Furosemide 40 mg/ Syringe 4 mls @ 4 mls/min IV Q24H [facility] Stop: 08/20/21 07:29 Last Admin: 07/26/21 07:27 Dose: 4 mls/min Documented by: Insulin Aspart (Insulin Aspart 100 Units/Ml 3 Ml Pen) 0 units SC ACHS [facility] Stop: 08/14/21 16:29 Last Admin: 07/26/21 13:07 Dose: 30 units Documented by: Insulin Glargine (Insulin Glargine Solostar 100 Units/Ml 3 Ml Pen) 13 units SC BID [facility] Stop: 08/23/21 20:59 Last Admin: 07/26/21 09:06 Dose: 13 units Documented by: Miscellaneous (Carbohydrates For Hypoglycemia ) 15 - 30 gm PO UD PRN PRN Reason: Hypoglycemia Protocol Stop: 08/14/21 15:25 Ondansetron HCl (Ondansetron Inj 2 Mg/Ml 2 Ml Vial) 4 mg IV Q6H PRN PRN Reason: Nausea Stop: 08/14/21 15:25 Oxymetazoline HCl (Oxymetazoline 0.05% 30 Ml Btl) 1 sprays NA Q12H PRN PRN Reason: Congestion Stop: 08/21/21 11:07 Last Admin: 07/25/21 08:38 Dose: 1 sprays Documented by: Pantoprazole Sodium (Pantoprazole 40 Mg Tab) 40 mg PO BID [facility] Stop: 08/17/21 20:59 Last Admin: 07/26/21 09:05 Dose: 40 mg Documented by: Trazodone HCl (Trazodone Hcl 100 Mg Tab) 100 mg PO HS PRN PRN Reason: insomnia Stop: 08/14/21 20:59 Last Admin: 07/25/21 21:25 Dose: 100 mg Documented by: Vitamin D (Cholecalciferol 1,000 Units 25 Mcg Tab) 1,000 units PO QAM [facility] Stop: 08/14/21 15:25 Last Admin: 07/26/21 09:05 Dose: 1,000 units Documented by: Zinc Sulfate (Zinc Sulfate 220 Mg Capsule) 220 mg PO QAM [facility] Stop: 08/14/21 15:25 Last Admin: 07/26/21 09:05 Dose: 220 mg Documented by:
[2021-07-26] MEDS: GABAPENTIN 300 MG CAP PO SCH (21:24)
[2021-07-26] MEDS: traZODone HCL 100 MG TAB PO PRN (21:26)
[2021-07-26] MEDS ORDERED: hydrOXYzine HCl 10 MG TAB PO STA (22:11)
[2021-07-27] MEDS ORDERED: OLANZapine 10 MG/2.1 ML SDV IM STA (00:01)
[2021-07-27] MEDS: ENOXAPARIN INJ 40 MG/0.4 ML SYR SQ SCH ×2 (06:12→18:04)
[2021-07-27 07:43] LABS: Basophils # (auto) 0.01 K/uL (0-0.2); Basophils % (auto) 0.1 %; Eosinophils # (auto) 0.15 K/uL (0-0.5); Eosinophils % (auto) 1.7 %; Hematocrit (blood only) 37.4 % (37-47); Hemoglobin 12.2 g/dL (12.0-16.0); Immature Granulocytes # (auto) 0.05 K/uL (0.00-0.02); Immature Granulocytes % (auto) 0.6 %; Lymphocytes # (auto) 1.11 K/uL (1.2-3.4); Lymphocytes % (auto) 12.3 %; Mean Corpuscular Hemoglobin 28.3 pg (25-34); Mean Corpuscular Hgb Conc 32.6 g/dL (32-36); Mean Corpuscular Volume 86.8 fL (80-100); Mean Platelet Volume 10.1 fL (7.4-10.4); Monocytes # (auto) 0.11 K/uL (0.11-0.59); Monocytes % (auto) 1.2 %; Neutrophils # (auto) 7.63 K/uL (1.4-6.5); Neutrophils % (auto) 84.1 %; Platelet Count 213 K/uL (130-400); RDW Coefficient of Variation 14.5 % (11.5-14.5); RDW Standard Deviation 46.6 fL (36.4-46.3); Red Blood Count 4.31 M/uL (4.2-5.4); White Blood Count 9.06 K/uL (4.8-10.8)
[2021-07-27 08:11] LABS: Albumin Level 2.4 gm/dl (3.4-5.0); BUN Creatinine Ratio 63.8 (10-20); C Reactive Protein 6.37 mg/dl (0-0.29); Calcium 8.7 mg/dl (8.5-10.1); Creatinine Clr Calc Pharmacy 174.1 ml/min; Est GFR (African American) 136.3 ml/min; Est GFR (Non-African American) 117.6 ml/min; Magnesium 1.9 mg/dl (1.8-2.4); Potassium 3.5 mmol/L (3.5-5.1)
[2021-07-27 08:13] LABS: Albumin Globulin Ratio 0.6 (0.9-2); Bilirubin,Total 0.3 mg/dl (0.2-1); Globulin 4.1 gm/dl (2.5-4.0); Phosphorus 3.3 mg/dl (2.5-4.9); Total Protein 6.5 gm/dl (6.4-8.2)
[2021-07-27] MEDS: CHOLECALCIFEROL 1,000 UNITS 25 MCG TAB PO SCH (08:30)
[2021-07-27] MEDS: PANTOprazole 40 MG TAB PO SCH ×2 (08:30→22:04)
[2021-07-27] MEDS: ZINC SULFATE 220 MG CAPSULE PO SCH (08:30)
[2021-07-27] MEDS: ASCORBIC ACID 500 MG TAB PO SCH ×2 (08:30→22:07)
[2021-07-27] MEDS: FOLIC ACID 1 MG TAB PO SCH (08:30)
[2021-07-27] MEDS: guaiFENesin 600 MG TABCR PO SCH ×2 (08:30→22:03)
[2021-07-27] MEDS: FLUoxetine HCL 20 MG CAP PO SCH (08:30)
[2021-07-27] MEDS: CeleBREX 200 MG CAP PO SCH ×2 (08:30→22:05)
[2021-07-27] MEDS: dexAMETHasone 10 MG in SYRINGE 0 ML IV SCH (08:30)
[2021-07-27] MEDS: FUROSEMIDE 40 MG in SYRINGE 0 ML IV SCH (08:31)
[2021-07-27] MEDS: INSULIN ASPART 100 UNITS/ML 3 ML PEN SC SCH ×4 (08:48→22:10)
[2021-07-27] MEDS: INSULIN GLARGINE SOLOSTAR 100 UNITS/ML 3 ML PEN SC SCH ×2 (08:50→22:10)
--- NOTE | 2021-07-27 11:55 | Hospitalist Progress Note ---
Date of Service July 27, 2021 Assessment & Plan (1) Acute respiratory failure due to COVID-19: Plan: Currently patient remains on high flow nasal cannula. Continue furosemide 40 mg daily. Monitor ins and outs along with daily weights. Appreciate pulmonary medicine input, continue with increased dexamethasone to 10mg IV daily. CRP went up to 12.0 as of 07/21/2021 CRP level has come down to 4.69 as of 07/23/2021 from 11.30 on 07/22/2021 Chest x-ray on 07/23/2021 did show improvement Inflammatory markers for COVID-19 has been improving but remains minimally elevated with normal procalcitonin (2) Sepsis: Plan: Patient is afebrile. WBC is within normal limit. Blood and urine cultures have been negative. (3) Immunosuppressed status: Plan: Holding MTX, plaquenil at this time. Improved on steorid therapy given from a joint symptom perspective. Likely the cause for slow improvement (4) Pneumonia due to COVID-19 virus: Plan: Completed course of remdesivir. Will continue with daily dexamethasone. Monitor renal function and LFTs. (5) Acute pyelonephritis: Plan: Urine and blood cultures remain negative. Ceftriaxone was discontinued. . (6) Lupus: Plan: Takes MTX, recently took on two days ago and has been on a prednisone taper since Mon beginning at 15mg daily. Malar rash and joint pain resolved. Hold MTX, plaquenil and cont steroid therapy as above. (7) DMII (diabetes mellitus, type 2): Plan: Hold home medications, repeat A1C which was slightly uncontrolled in March 2021 at 7.6. Cont with glargine and novolog with intensification while on steroid therapy. Cont current regimen. SSI has been adjusted (8) Obesity: Plan: Lifestyle recommendations on discharge to ensure efforts to decrease percent body fat and increase lean muscle mass. (9) Insomnia: Plan: Cont trazodone per home regimen. Cut dose by 50% with ongoing hypoxia. (10) DVT prophylaxis: Plan: Lovenox Full Dispo-Cont PCU monitoring. Very slow improvement Plan: Will get physical therapy for the chest Admission and Anticipated Discharge Date Admission Date: July 15, 2021 Subjective Patient states her breathing is better. She does have significant productive cough. Remains afebrile. Denies any chest pain. Denies any abdominal pain, diarrhea or dysuria. Rest of the review of system is negative. Review of Systems Review of Systems: All systems reviewed & are unremarkable except as noted in HPI & below Physical Exam Physical Exam: General: A&Ox3 HENT: NCAT, MMM, EOMI Eyes: PERRLA Neck: Supple, normal range of motion CVS: normal rate and rhythm Resp: b/l decrease breath sounds Abdomen: Soft, ND/NT, +BS Extremities: No c/c/e Neuro: face symmetric, no focal deficit appreciated Skin: warm and dry, no rashes/lesions/errythema MSK: normal ROM, no joint swelling/erythema Results & Data Results & Data ([facility]) Vital Signs (Past 12 Hours) Vital Signs Temp Pulse Pulse Resp BP Pulse Ox 07/27/21 11:36 76 22 98 07/27/21 11:25 81 20 98 07/27/21 11:16 36.9 C 84 23 95/69 L 95 07/27/21 10:22 80 07/27/21 07:50 36.8 C 90 19 96/42 L 96 07/27/21 07:33 96 H 20 96 07/27/21 03:40 36.0 C L 66 18 116/54 L 96 07/27/21 02:39 66 16 94
--- NOTE | 2021-07-27 15:07 | Pulmonology Progress Note ---
Date of Service July 27, 2021 Assessment & Plan (1) Acute respiratory failure due to COVID-19: Plan: 46-year-old female with a past medical history of lupus on methotrexate, morbid obesity with a BMI of 42.1 and anxiety who is currently in the hospital due to acute hypoxemic respiratory failure from Covid pneumonia. Covid pneumonia: Continue Decadron at current dose of 10 mg daily. I spoke with the ICU team on 07/24/2021 regarding the possibility require transfer to ICU level of care. Low threshold for ICU transfer. I suspect that her obesity is playing a significant role in her hypoxia. Proning is highly encouraged. Continue with diuresis to achieve a negative fluid status. I do not think there is much utility in trending CRP levels at this point as she is out of the window for therapies such as tocilizumab. Acute hypoxemic respiratory failure: Recommend that we keep her saturations above 90% to prevent the development of pulmonary hypertension. The patient understands that she is likely going to require supplemental oxygen for many weeks if not indefinitely. Obesity: Weight loss is advised. Continue to use as needed CPAP to help support her respiratory status. She is using CPAP at night. History of lupus: Methotrexate and hydroxychloroquine on hold at present. The higher dose of Decadron should help prevent a lupus flare. Again, she is at a very significantly increased risk of developing venous thromboembolism due to h er lupus. She is on Lovenox 40 mg twice daily. Symptomatically she appears slightly improved. Pulmonary will sign off at this time. Please call with questions. Thank you for the consultation. (2) Hypoxic: (3) Obesity: (4) Lupus: Admission and Anticipated Discharge Date Admission Date: July 15, 2021 Subjective Patient seen and examined this morning. She continues to feel better from a respiratory standpoint. She is sitting up in a chair. She was requiring 80% FiO2 and a flow rate of 60 L when I saw her. She continues with physiotherapy of her chest. Appetite is good. Denies lower extremity edema. No chest pain. Review of Systems Review of Systems: All systems reviewed & are unremarkable except as noted in HPI & below Physical Exam Physical Exam: Constitutional: Obese appearing female in no significant distress. Eyes: Pupils are equal round and reactive to light. Conjunctivae are normal. Anicteric sclera. Ears nose, mouth and throat: No obvious deformities noted. Neck: Trachea is midline. Visual inspection is normal. Respiratory: Diminished bilaterally. Tachypnea Cardiovascular: Regular rate and rhythm. No murmurs. No edema. Gastrointestinal: Normal bowel sounds, soft, nontender and nondistended. No hepatosplenomegaly noted. Musculoskeletal: No cyanosis. Patient is able to move all extremities. Strength is 5 out of 5 in the upper and lower extremities. Skin: No rashes, warm dry and intact. Neurologic: No obvious focal neurological deficits seen. Psychiatric: Alert and oriented x3 with a euthymic affect. Results & Data Results & Data ([facility]) Vital Signs (Past 12 Hours) Vital Signs Temp Pulse Pulse Resp BP Pulse Ox 07/27/21 14:51 92 H 22 90 07/27/21 11:36 76 22 98 07/27/21 11:25 81 20 98 07/27/21 11:16 98.4 F 84 23 95/69 L 95 07/27/21 10:22 80 07/27/21 07:50 98.2 F 90 19 96/42 L 96 07/27/21 07:33 96 H 20 96 07/27/21 03:40 96.8 F L 66 18 116/54 L 96 vital signs, labs and imaging personally reviewed PG Care Time/CCT Total # of Minutes Spent Total Time Spent with Patient: Total time spent is greater than 50% in coordination of care (as documented) at patient's floor/unit and/or counseling patient: Coding Level of Care Code 57538 Subseq Hosp Care Lvl 2 Diagnoses Acute respiratory failure due to COVID-19 U07.1; J96.00 Hypoxic R09.02 Obesity E66.9 Lupus M32.9
[2021-07-27] MEDS ORDERED: OLANZAPINE 2.5 MG TAB PO STA (21:27)
[2021-07-27] MEDS: GABAPENTIN 300 MG CAP PO SCH (22:04)
[2021-07-27] MEDS: traZODone HCL 100 MG TAB PO PRN (22:07)
[2021-07-28] MEDS: ENOXAPARIN INJ 40 MG/0.4 ML SYR SQ SCH ×2 (05:40→17:48)
[2021-07-28 07:46] LABS: Estimated Average Glucose 183 mg/dl
[2021-07-28] MEDS: FLUoxetine HCL 20 MG CAP PO SCH (08:05)
[2021-07-28] MEDS: guaiFENesin 600 MG TABCR PO SCH ×2 (08:05→20:45)
[2021-07-28] MEDS: CHOLECALCIFEROL 1,000 UNITS 25 MCG TAB PO SCH (08:05)
[2021-07-28] MEDS: ZINC SULFATE 220 MG CAPSULE PO SCH (08:05)
[2021-07-28] MEDS: ASCORBIC ACID 500 MG TAB PO SCH ×2 (08:05→20:46)
[2021-07-28] MEDS: FUROSEMIDE 40 MG in SYRINGE 0 ML IV SCH (08:05)
[2021-07-28] MEDS: PANTOprazole 40 MG TAB PO SCH ×2 (08:05→20:45)
[2021-07-28] MEDS: FOLIC ACID 1 MG TAB PO SCH (08:05)
[2021-07-28] MEDS: CeleBREX 200 MG CAP PO SCH ×2 (08:06→20:45)
[2021-07-28] MEDS: dexAMETHasone 10 MG in SYRINGE 0 ML IV SCH (08:37)
[2021-07-28] MEDS: INSULIN GLARGINE SOLOSTAR 100 UNITS/ML 3 ML PEN SC SCH ×2 (09:22→20:47)
[2021-07-28] MEDS: INSULIN ASPART 100 UNITS/ML 3 ML PEN SC SCH ×4 (09:23→20:48)
--- NOTE | 2021-07-28 16:56 | Communication Note ---
Date of Service: July 28, 2021 Went to see Trinidad Alva in her room because she patient wanted to be discharged however she needs to continue current therapy. This was explained to the patient extensively in detail. The patient still wished to sign out against medical advice. I explained the risks of signing out AMA and without finishing the planned upon treatment which included or severe bodily harm. Currently patient is on 10 L of nasal cannula. I explained to her that it is not safe for her to go home at this point. Need to continue to diurese her during her down to a safe discharge oxygen level. Patient was adamant that she will be leaving today. She stated that she is aware of the risks. I also called her and try to explain to him that it is not safe for her to leave given her oxygen levels on room air. He also emphasized that they will be able to take care of her at home and would not let her exert too much. I also try to explain to him that it is not safe for her to go home. Spoke with care aid to see if she can be discharged on some oxygen. However, as per care aid she would not qualify given 10 L.
--- NOTE | 2021-07-28 17:55 | Communication Note ---
Date of Service: July 28, 2021 Patient is short of breath on room air at rest, oxygen saturation is 90% on 10L oxygen via nasal cannula, patient is positive for covid-19 and requires oxygen.
[2021-07-28] MEDS: GABAPENTIN 300 MG CAP PO SCH (20:46)
[2021-07-28] MEDS ORDERED: PHARMACY GLYCEMIC MGMT CONSULT PRN (21:11)
--- NOTE | 2021-07-28 23:36 | Communication Note ---
Date of Service: July 28, 2021
--- NOTE | 2021-07-28 23:37 | Communication Note ---
Date of Service: July 28, 2021 Made aware by RN of patient having left hospital AGAINST MEDICAL ADVICE. Detailed AM hospitalist provider note from the afternoon reviewed earlier. RN requesting for completion of patient's EMR discharge for patient to be taken out of system. Dr. Bruno to accomplish patient's discharge summary.
[2021-07-29] MEDS ORDERED: INSULIN ASPART 100 UNITS/ML 3 ML PEN SC SCH
--- NOTE | 2021-08-01 16:34 | Discharge Summary ---
Date of Service August 01, 2021 Admission HPI Per Admitting Provider 46 yo nonsmoker immunosuppressed patient with lupus presents with covid pneumonia. Symptoms began on including fatigue, fever, diarrhea, headache, joint pain, nausea, and symptoms of UTI including dysurina, nocturia, flank pain, cough and sob. Cough was described as not productive. Diarrhea has been improved. Not on home oxygen. Thought she was having a lupus flare and started a prednisone taper per rheumatology on Saturday (started having joint pain, ORTIZ, fatigue and felt the flare was coming on). Symptoms progressed to include fever on Saturday morning. She did take her MTX dose on and noted a worsening of symptoms. She notes needing to sleep in a recliner. Diarrhea has started to improve. She has been taking Ibuprofen 800mg TID this week consistently related to pain and fevers. She denies having lost her sense of taste of smell, however, she has not eaten much secondary to low appetite. Admission Exam Per Admitting Provider CONSTITUTIONAL: obese, vitals as above, generally well-appearing EYES: EOMI bilaterally, PERRL, normal conjunctivae, no scleral icterus, ENT: external ear and nose normal, oropharynx clear, flushing on cheeks bilaterally and in central submandibular space and along her chest slightly NECK: trachea midline RESPIRATORY: diffuse crackles with poor airflow throughout, no wheezing or rales. Normal respiratory effort CARDIOVASCULAR: regular rate and rhythm, S1 and 2 heard without murmurs, gallops or rubs, no JVD, no peripheral edema CHEST: inspection of chest was normal aside from erythema as above. GASTROINTESTINAL: soft, diffuse tenderness with left CVA tenderness, nondistended, suprapubic tenderness. MUSCULOSKELETAL: strength 5/5 throughout, head is normocephalic and atraumatic SKIN: warm and dry, malar rash and rash on chin and chest NEUROLOGIC: No facial palsy, no dysarthria. Touch, pain and proprioception normal. CN 2-12 grossly intact, no sensory deficit, normal cognition, normal speech, no tremor PSYCHIATRIC: alert cooperative and oriented to person, place and time. Euthymic mood, makes good eye contact, language grossly intact, recent and mandy te memory grossly intact. Principal Diagnosis COVID Pneumonia Discharge Exam General: A&Ox3 HENT: NCAT, MMM, EOMI Eyes: PERRLA Neck: Supple, normal range of motion CVS: normal rate and rhythm Resp: b/l decrease breath sounds Abdomen: Soft, ND/NT, +BS Extremities: No c/c/e Neuro: face symmetric, no focal deficit appreciated Skin: warm and dry, no rashes/lesions/errythema MSK: normal ROM, no joint swelling/erythema Discharge Data Allergies Allergy/AdvReac Type Severity Reaction Status Date / Time tree nut Allergy Severe anaphylaxis Verified 07/15/21 12:49 Consultations 07/15/21 11:15 ED Decision to Admit Stat 07/18/21 16:46 Consult Pulmonology Routine Hospital Course (1) Acute respiratory failure due to COVID-19: Patient is 46-year-old female who was admitted with Covid pneumonia. Patient was unvaccinated. Patient completed a course of remdesivir and Decadron. Patient was also being diuresed during this hospitalization to keep a negative net balance. Chest x-ray on 07/23/2021 did show improvement Prior to discharge inflammatory markers for COVID-19 has been improving but remains minimally elevated with normal procalcitonin. During her last day of hospitalization, patient was on 10 L of nasal cannula. Patient decided to leave AGAINST MEDICAL ADVICE. Patient did not have any specific reason. She did not have any concerns for the care that she was provided. However patient is fine to go home and spend time with her family. On the day of discharge: Went to see Trinidad Alva in her room because she patient wanted to be discharged however she needs to continue current therapy. This was explained to the patient extensively in detail. The patient still wished to sign out against medical advice. I explained the risks of signing out AMA and without finishing the planned upon treatment which included or severe bodily harm. Currently patient is on 10 L of nasal cannula. I explained to her that it is not safe for her to go home at this point. Need to continue to diurese her during her down to a safe discharge oxygen level. Patient was adamant that she will be leaving today. She stated that she is aware of the risks. I also called her and try to explain to him that it is not safe for her to leave given her oxygen levels on room air. He also emphasized that they will be able to take care of her at home and would not let her exert too much. I also try to explain to him that it is not safe for her to go home. (2) Sepsis: Patient is afebrile. WBC is within normal limit. Blood and urine cultures have been negative. (3) Immunosuppressed status: Holding MTX, plaquenil at this time. Improved on steorid therapy given from a joint symptom perspective. Likely the cause for slow improvement (4) Pneumonia due to COVID-19 virus: Completed course of remdesivir. Will continue with daily dexamethasone. Monitor renal function and LFTs. (5) Acute pyelonephritis: Urine and blood cultures remain negative. Ceftriaxone was discontinued. . (6) Lupus: Takes MTX, recently took on two days ago and has been on a prednisone taper since Mon beginning at 15mg daily. Malar rash and joint pain resolved. Hold MTX, plaquenil and cont steroid therapy as above. (7) DMII (diabetes mellitus, type 2): Hold home medications, repeat A1C which was slightly uncontrolled in March 2021 at 7.6. Cont with glargine and novolog with intensification while on steroid therapy. Cont current regimen. SSI has been adjusted (8) Obesity: Lifestyle recommendations on discharge to ensure efforts to decrease percent body fat and increase lean muscle mass. (9) Insomnia: Cont trazodone per home regimen. Cut dose by 50% with ongoing hypoxia. Total Time Total Time Spent Total Time Spent (In Minutes): 35 Discharge Plan Discharge Items Patient Disposition: Against Medical Advice Reason For Visit: COVID PNEUMONIA Activity: Resume your previous activity Non-emergency contact: Primary Care Provider Follow-up/Referrals: Shimon Ball MD [Primary Care Provider] - Pending Studies at Discharge: No Stand-Alone Forms: My [facility] [place], Smoking Cessation Medications and DC Order Prescriptions: Discontinued methotrexate sodium 25 mg/mL solution 15 mg PO TH@0900 RF: 0 hydroxychloroquine 200 mg tablet 200 mg PO Q2D RF: 0 hydroxychloroquine [Plaquenil] 200 mg Tablet 100 mg PO Q2D RF: 0 No Action Ibuprofen (Advil) 200 MG tablet 800 mg PO TID PRN (Reason: PRN) Qty: 0 RF: 0 celecoxib 200 mg capsule 200 mg PO BID RF: 0 Tradjenta 5 mg tablet 5 mg PO DAILY RF: 0 Invokana 300 mg tablet 300 mg PO DAILY RF: 0 Ozempic 0.25 mg or 0.5 mg(2 mg/1.5 mL) pen injector 0.5 mg SUBCUT TU@0900 RF: 0 folic acid 1 mg tablet 1 mg PO DAILY RF: 0 trazodone 100 mg tablet 100 mg PO HS RF: 0 gabapentin 300 mg capsule 300 mg PO HS RF: 0 fluoxetine 20 mg capsule 20 mg PO DAILY RF: 0 Discharge Orders: Left Against Medical Advice (Routine); Ordered 07/28/21 Ordered By: Eliseo Posaad Admission Data Admit Date/Time: 07/15/21 11:52 Attending Provider: Lily Lopez Admit Provider: Lily Lopez Primary Care Provider: Shimon Ball Other Providers: Lily Lopez ; Skyla Ramos Other Interventions: Discharge Summary Assessment (RN) Last Done: 07/28/21 22:56
== END 2021-07-28 21:46 | disposition left against medical advice (07) | DRG 871 ==
LOC: ED 09:27 → SUATTDRO 11:52 → 2S 11:52 → 2E 07-21 17:45